=== PATIENT | female | born 1970 | race Caucasian/White ===

== ENCOUNTER 2024-05-25 10:56 | Outpatient (CLI) | payer OTHER, SELFPAY ==
--- NOTE | ~2024-05-25 | MM_ITS ---
EXAMINATION: MM screening janes BI w justin HISTORY: Screening TECHNIQUE: Craniocaudal and mediolateral oblique 3-D tomosynthesis images were obtained and synthetic 2-D images were generated. CAD analysis was submitted and interpreted. COMPARISON: No prior mammogram is available for comparison at this institution. BREAST PARENCHYMAL COMPOSITION: There are scattered areas of fibroglandular density. FINDINGS: Punctate calcifications are detected bilaterally, morphologically benign in appearance. Unremarkable parenchymal pattern without suspicious microcalcifications, architectural distortion, di screte masses or significant asymmetry. IMPRESSION: 1. No mammographic/tomographic evidence of malignancy. BI-RADS Category 0: Incomplete: Needs comparison with prior mammograms. Reviewed, dictated and finalized at location A.
--- OUTSIDE RECORDS SUMMARY | 2024-05-25 12:13 | XMS_ITS | Clinical Summary ---
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 2020. Nasopharyngeal 05/04/2024 1: 55 AM COMMERCIAL ACCOUNT MANAGER 05/04/2024 2:00 AM COMMERCIAL ACCOUNT MANAGER Cydney RIGGINS CH - 05/04/2024 3:21 AM COMMERCIAL ACCOUNT MANAGER Is the Patient experiencing symptoms consistent with COVID?->Yes Surveillance testing for transplant patient?->No James Lopez NP LAB MICROBIOLOGY - GENERAL ORDERABLES Final Result [facility] [address] Department of Laboratories [place], [place] [id number] * POCT lipid panel (04/21/2024 12:12 PM COMMERCIAL ACCOUNT MANAGER) Cholesterol, POC 202 mg/dL HDL, POC 81 mg/dL Triglycerides, POC 149 mg/dL LDL Cholesterol POC 91 mg/dL Chol/HDL Ratio, POC 2.5 Non-HDL Cholesterol, POC 121 mg/dL Cholesterol Total, POC 202 mg/dL Capillary blood 04/21/2024 1 2:12 PM COMMERCIAL ACCOUNT MANAGER us Ashwin Haddad MD POINT OF CARE TEST O RDERABLES Final Result * XR Chest 1 Vw Portable (if patient condition/safety warrant portable) (04/16/2024 9:34 PM COMMERCIAL ACCOUNT MANAGER) Anatomical Region Laterality Modality Body, Chest N/A Computed Radiogr aphy 04/17/2024 8:11 AM COMMERCIAL ACCOUNT MANAGER Impressions 04/17/2024 8:11 AM COMMERCIAL ACCOUNT MANAGER NO ACUTE PULMONARY CHANGE. Electronically signed by: Steven Caro M.D. Narrative 04/17/2024 8:11 AM COMMERCIAL ACCOUNT MANAGER EXAMINATION: XR CHEST 1 VIEW HISTORY: Chest pain ORDER DATE: 04/16/2024 9:20 PM FINDINGS: The lungs are clear of infiltrate. The cardiac and mediastinal outlines are unremarkable. There are no significant pleural effusions . No significant abnormalities are noted in the spine or remainder of the bony thorax. Procedure Note Steven Caro MD - 04/17/2024 EXAMINATION: XR CHEST 1 VIEW HISTORY: Chest pain ORDER DATE: 04/16/2024 9:20 PM FINDINGS: The lungs are clear of infiltrate. The cardiac and mediastinal outlines are unremarkable. There are no significant pleural effusions . No significant abnormalities are noted in the spine or remainder of the bony thorax. IMPRESSION: NO ACUTE PULMONARY CHANGE. Electronically signed by: Steven Caro M.D. Yemi Pryor MD IMG XR PROCEDURES Final Re sult * Troponin T high-sensitivity series (baseline, 2hr, 4hr, 6hr) (04/16/2024 9:16 PM COMMERCIAL ACCOUNT MANAGER) Trop T hs 6 <=14 ng/L Comment: Interpretive Data For further hscTnT resources including the diagnostic algorithm and an aid in interpretation, copy and paste this link: https://nrl.testcatalog.org/show/hsTrop Current Interpretive Data last revised 2020. Blood 04/16/2024 9:16 PM COMMERCIAL ACCOUNT MANAGER 04/16/2024 9:24 PM COMMERCIAL ACCOUNT MANAGER Yemi Pryor MD LAB BLOOD ORDERABLES Final Result Performing Organization Address [facility] Co de Phone Number [facility] VEL[facility] [address] Department [place] [address] * eGFR (04/16/2024 9:16 PM COMMERCIAL ACCOUNT MANAGER) Pathologist [facility] eGFR >90 >=60 mL/min/1. 73 m2 Comment: Interpretive Data Reference Interval Normal >/= 90 mL/min/1.73m2 Mildly decreased* 60 - 89 mL/min/1.73m2 Mildly to moderately decreased 45 - 59 mL/min/1.73m2 Moderately to severely decreased 30 - 44 mL/min/1.73m2 Severely decreased 15 - 29 mL/min/1.73m2 Kidney Failure < 15 mL/min/1.73m2 *Relative to young adult level Estimated glomerular filtration rate is determined by the 2020 CKD-EPI equation recommended by the National Kidney Foundation (A Unifying Approach to GFR Estimation: Recommendations of the NKF-ASK Task Force on Reassessing the Inclusion of Race in Diagnosing Kidney Disease, JASN 2020). The CKD-EPI equation should not be used for patients with unstable renal function and has not been validated in children and those over 70. Current interpretive data was last reviewed 2020. Blood 04/16/2024 9:16 PM COMMERCIAL ACCOUNT MANAGER 04/16/2024 9:24 PM COMMERCIAL ACCOUNT MANAGER Yemi Pryor MD LAB BLOOD ORDERABLES Final Result Performing Organization Address City/[facility]/ZIP Co de Phone Number [facility] [address] Department [place] [address] * Differential, auto (04/16/2024 9:16 PM COMMERCIAL ACCOUNT MANAGER) Pathologist [facility] Neutrophil abs 3.4 1.5 - 6.5 K/cumm Imm gran abs 0.0 0.0 - 0.1 K/cumm [facility] Lymphocyte abs 1.6 0.8 - 3.3 K/cumm [facility] Monocyte abs 0.6 0.2 - 0.8 K/cumm [facility] Eosinophil abs 0.1 0.0 - 0.5 K/cumm [facility] Basophil abs 0.0 0.0 - 0.1 K/cumm [facility] Neutrophil pct 59.4 % [facility] Comment: Interpretive Data Percent cell count reference ranges are not reported, since discordance with absolute values may lead to misinterpretation of CBC data. Current Interpretive Data was last revised on 2017. Imm gran pct 0.2 % [facility] Comment: Interpretive Data Percent cell count reference ranges are not reported, since discordance with absolute values may lead to misinterpretation of CBC data. Current Interpretive Data was last revised on 2017. Lymphocyte pct 27.9 % [facility] Comment: Interpretive Data Percent cell count reference ranges are not reported, since discordance with absolute values may lead to misinterpretation of CBC data. Current Interpretive Data was last revised on 2017. Monocyte pct 9.5 % [facility] Comment: Interpretive Data Percent cell count reference ranges are not reported, since discordance with absolute values may lead to misinterpretation of CBC data. Current Interpretive Data was last revised on 2017. Eosinophil pct 2.3 % [facility] Comment: Interpretive Data Percent cell count reference ranges are not reported, since discordance with absolute values may lead to misinterpretation of CBC data. Current Interpretive Data was last revised on 2017. Basophil pct 0.7 % [facility] Comment: Interpretive Data Percent cell count reference ranges are not reported, since discordance with absolute values may lead to misinterpretation of CBC data. Current Interpretive Data was last revised on 2017. Blood 04/16/2024 9:16 PM COMMERCIAL ACCOUNT MANAGER 04/16/2024 9:24 PM COMMERCIAL ACCOUNT MANAGER us Yemi Pryor MD LAB BLOOD ORDERABLES Final Result [facility] [address] Department [place] [address] * Pro B-type natriuretic peptide (04/16/2024 9:16 PM COMMERCIAL ACCOUNT MANAGER) NT-proBNP 201 <=300 pg/mL Comment: Interpretive Comments: A. Dyspnea in Acute Care Setting All Ages: < 300 pg/ml, acute heart failure unlikely. < 50 yrs: 300 - 450 pg/ml, further investigation warranted. > 450 pg/ml, acute heart failure likely. 50 - 74 yrs: 300 - 900 pg/ml, further investigation warranted. > 900 pg/ml, acute heart failure likely . > or = 75 yrs: 450 - 1800 pg/ml, further investigation warranted. > 1800 pg/ml, acute heart failure likely. B. Non-acute Setting < 75 yrs < 125 pg/ml, rules out heart failure. > or = 125 pg/ml, further investigation warranted. > or = 75 yrs < 450 pg/ml, rules out heart failure. > or = 450 pg/ml, further investigation warranted. - Knowledge of each individual patient's NT-proBNP range may be more useful than using similar cut-points for every patient. Please note that marked elevations in NT-proBNP levels may be observed in state other than Left Ventricular Congestive Failure, including: acute coronary syndromes, right heart strain/failure (including pulmonary embolism and cor pulmonale), critical illness, renal failure, as well as advanced age. - References: 1. Alma Rosa JL et.al. Eur Heart J. 2006:27:330-337. 2. Art RW, Shreyas AM. J. AM Valerie Cardiol: Cardiovasc Imag. 2009;2: 216- 225. Interpretive Data Last Revised Date: 2017. Blood 04/16/2024 9:16 PM COMMERCIAL ACCOUNT MANAGER 04/16/2024 9:24 PM COMMERCIAL ACCOUNT MANAGER us Yemi Pryor MD LAB BLOOD ORDERABLES Final Result [facility] [address] Department [place] [address] * (ABNORMAL) CBC with auto differential (04/16/2024 9:16 PM COMMERCIAL ACCOUNT MANAGER) [facility] WBC 5.8 3.8 - 9.9 K/cumm Hgb 13.8 11.9 - 15.5 g/dL [facility] Hct 42.5 35.6 - 45.5 % [facility] Plt 202 150 - 400 K/cumm [facility] MPV 10.6 9.1 - 12.3 fL [facility] RBC 5.05 3.90 - 5.20 M/cumm [facility] MCV 84.2 81.3 - 96.4 fL [facility] MCH 27.3 27.1 - 33.3 pg [facility] MCHC 32.5 32.3 - 35.7 g/dL [facility] RDW CV 16.3(H) 11.1 - 14.9 % [facility] CH RDW SD 50.4(H) 35.7 - 48.1 fL [facility] NRBC abs 0.00 0.00 - 0.01 K/cumm [facility] Blood Venous blood specimen / Unknown 04/16/2024 9:16 PM COMMERCIAL ACCOUNT MANAGER 04/16/2024 9:24 PM COMMERCIAL ACCOUNT MANAGER Yemi Pryor MD LAB BLOOD ORDERABLES Final Result [facility] [address] Department [place] [address] * (ABNORMAL) Comprehensive metabolic panel (04/16/2024 9:16 PM COMMERCIAL ACCOUNT MANAGER) Sodium 139 135 - 145 mmol/L Potassium, pl 4.3 3.3 - 4.9 mmol/L [facility] Chloride 101 97 - 110 mmol/L [facility] CO2 27 22 - 32 mmol/L [facility] Anion gap 11 2 - 15 mmol/L [facility] BUN 9 6 - 25 mg/dL [facility] Creatinine 0.56(L) 0.60 - 1.10 mg/dL [facility] Glucose 119 70 - 199 mg/dL [facility] Comment: Interpretive Data Fasting glucose >/= 126 mg/dl is diagnostic for diabetes. Fasting is defined as no caloric intake for at least 8 hours. Fasting glucose between 100 mg/dl to 125 mg/dl is diagnostic of prediabetes. In a patient with classic symptoms of hyperglycemia or hyperglycemic crisis, a random glucose >/= 200 mg/dl is diagnostic for diabetes. In the absence of unequivocal hyperglycemia, results should be confirmed by repeat testing. The classification and Diagnosis of Diabetes Diabetes Care 2021; 46: S19-S40. Current interpretive data was last revised 2022. Calcium 9.6 8.5 - 10.3 mg/dL [facility] Bilirubin, total 0.7 0.1 - 1.2 mg/dL [facility] Protein, pl 7.3 6.5 - 8.5 g/dL [facility] Albumin 4.3 3.5 - 5.0 g/dL [facility] Alk phos 214(H) 40 - 130 Units/L [facility] ALT 81(H) 7 - 45 Units/L [facility] AST 53(H) 10 - 45 Units/L [facility] Blood 04/16/2024 9:16 PM COMMERCIAL ACCOUNT MANAGER 04/16/2024 9:24 PM COMMERCIAL ACCOUNT MANAGER us Yemi Pryor MD LAB BLOOD ORDERABLES Final Result Performing Organization Address City/[facility] Co de Phone Number [facility] [address] Department [place] [address] * ECG 12 lead (04/16/2024 9:12 PM COMMERCIAL ACCOUNT MANAGER) 04/16/2024 9:12 PM COMMERCIAL ACCOUNT MANAGER Narrative [facility] - 04/17/2024 6:31 AM COMMERCIAL ACCOUNT MANAGER Vent Rate: 74 bpm RR Interval: 806 msec SD Interval: 174 msec QRS Duration: 98 msec QT Interval: 386 msec QTC Interval: 413 msec P-R-T [place]: 61 - -9 - 81 degrees IMPRESSION: SINUS RHYTHM POSSIBLE LEFT ATRIAL ENLARGEMENT [-0.1mV P-WAVE IN V1/V2] NONSPECIFIC T-WAVE ABNORMALITY BORDERLINE ECG Electronically Signed By: Dr. Korey Avalos us Yemi Pryor MD ECG ORDERABLES Final Resu lt Performing Organization Address [facility]/ZIP Co de Phone Number [facility] * COLONOSCOPY (04/17/2021 2:01 PM COMMERCIAL ACCOUNT MANAGER) Anatomical Region Laterality Modality Other Narrative Procedure Note Klever Alexandre MD - 04/17/2021 2:01 PM CST [facility] Endoscopy Lab Patient Name: Marina Coronado Procedure Date: 04/17/2021 2:01 PM Date of : 1970 Admit Type: Inpatient Age: 51 Gender: Female Note Status: Finalized Attending MD: Klever Alexandre M.D. Procedure Date: 04/17/2021 Procedure: Colonoscopy Indications: Iron deficiency anemia Providers: Klever Alexandre M.D., SRINIVAS Clarke (Anesthesia Staff), Christi Avila RN Referring MD: Pcp Clinic Medicines: Monitored Anesthesia Care Complications: No immediate complications. Estimated Blood Loss: Estimated blood loss: none. Procedure: Pre-Anesthesia Assessment: - Prior to the procedure, a History and Physicalwas performed, and patient medications and allergieswere reviewed. The patient is competent. The risks and benefits of the procedure and the sedation optionsand risks were discussed with the patient. Allquestions were answered and informed consent was obtained. Patient identification and proposed procedure were verified by the physician, the nurse and the sales and events coordinator in the procedure room. Mental Status Examination: alert and oriented. AirwayExamination: normal oropharyngeal airway and neck mobility. Respiratory Examination: clear to auscultation. CV Examination: normal. Prophylactic Antibiotics: The patient does not require prophylactic antibiotics. Prior Anticoagulants: The patient has taken no previous anticoagulant or antiplatelet agents. ASA Grade Assessment: IV - A patient with severesystemic disease that is a constant threat to life. After reviewing the risks and benefits, the patient was deemed in satisfactory condition to undergo the procedure. The anesthesia plan was to use monitored anesthesia care (MAC). Immediately prior to administration of medications, the patient was re-assessed for adequacy to receive sedatives. The heart rate, respiratory rate, oxygen saturations, blood pressure, adequacy of pulmonary ventilation,and response to care were monitored throughout the procedure. The physical status of the patient was re-assessed after the procedure. - The risks and benefits of the procedure and the sedation options and risks were discussed with the patient. All questions were answered and informed consent was obtained. After I obtained informed consent, the scope was passed under direct vision. Throughout theprocedure, the patient's blood pressure, pulse, and oxygen saturations were monitored continuously. The scopewas passed under direct vision. The Colonoscope was introduced through the anus and advanced to the the cecum, identified by appendiceal orifice andileocecal valve. The colonoscopy was performed without difficulty. The patient tolerated the procedurewell. The quality of the bowel preparation was adequate.The bowel preparation used was polyethylene glycol(PEG) and bisacodyl tablets via split dose instruction. Findings: Multiple small-mouthed diverticula were found in the entire colon. The exam was otherwise without abnormality on direct and retroflexion views. Impression: - Diverticulosis in the entire examined colon. - The examination was otherwise normal on directand retroflexion views. - No specimens collected. Recommendation: - High fiber diet. - To visualize the small bowel, perform videocapsule endoscopy at appointment to be scheduled. as outpatient.(EGD placed) - Repeat colonoscopy in 10 years for screening purposes. Procedure Code(s): --- Professional --- 16868, Colonoscopy, flexible; diagnostic, including collection of specimen(s) by brushing or washing,when performed (separate procedure) Diagnosis Code(s): --- Professional --- D50.9, Iron deficiency anemia, unspecified K57.30, Diverticulosis of large intestine without perforation or abscess without bleeding CPT copyright 2019 [employer]. All rights reserved. The codes documented in this report are preliminary and upon tree feller operator reviewmay be revised to meet current compliance requirements. Electronically signed by Klever Alexandre M.D. Klever Alexandre M.D. 04/17/2021 2:49:34 PM Number of Addenda: 0 Note Initiated On: 04/17/2021 2:01 PM Klever Alexandre MD ENDOSCOPY PROCEDURES Fi nal Result * Hemoglobin A1c (04/15/2021 4:51 AM COMMERCIAL ACCOUNT MANAGER) Hgb A1C 5.5 4.0 - 5.6 % [facility] Estimated Average Glucose 111 mg/dL [facility] Comment: The ADA recommends reporting an estimated Average Glucose (eAG) with all Hemoglobin A1c results using the equation derived from a study of 507 normal and diabetic adults. Minority populations were underrepresented and children were not included. (Diabetes Care 31:8024-4385, 2008). The eAG is not equivalent to a fasting glucose. Blood 04/15/2021 4:51 AM COMMERCIAL ACCOUNT MANAGER 04/15/2021 5:26 AM COMMERCIAL ACCOUNT MANAGER Lida Maddox MD LAB BLOOD ORDERABLE S Final Result [facility] [address] Department [place] [address] * Hepatitis panel, acute (04/13/2021 4:54 PM COMMERCIAL ACCOUNT MANAGER) Pathologist [facility] Hep A IgM Nonreactive Nonreactive [facility] Comment: Interpretive Data: If Hep A IgM Ab is reported as Equivocal, a new sample should be drawn in two weeks for testing. Current interpretive data was last revised on 19. Hep B core IgM Nonreactive Nonreactive [facility] Comment: Interpretive Data If HepB Core IgM Ab is reported as Equivocal, a new sample should be drawn in two weeks for testing. Current interpretive data was last revised on 19. Hep C Ab Nonreactive Nonreactive [facility] Comment: Interpretive Data Nonreactive: Antibodies to HCV not detected. Does NOT exclude the possibility of recent exposure to HCV. Equivocal: Equivocal for HCV antibodies. Supplemental molecular testing will be automatically performed to determine infection status in accordance with current CDC screening recommendations. Reactive: Positive for HCV antibodies. This may represent current or past HCV infection. Supplemental molecular testing will be automatically performed to determine current infection status in accordance with current CDC screening recommendations. Interpretive data was last revised on 2019. HepBsAg Nonreactive Nonreactive [facility] Blood 04/13/2021 4:54 PM COMMERCIAL ACCOUNT MANAGER 04/13/2021 5:12 PM COMMERCIAL ACCOUNT MANAGER Klever Alexandre MD LAB MICROBIOLOGY - [facility] ORDERABLES Final Result [address] Department [place] [address] from Last 3 Months or Most Recently Relevant to Health Maintenance Insurance [facility] Advance Directives For more information, please contact: [phone] * Full Code (Latest Code Status on File) Date Activated Date Inactivated Comments 03/18/2022 9:43 AM 03/18/2022 4:02 PM * Full Code Date Activated Date Inactivated Comments 05/05/2021 12:40 AM 05/08/2021 9:52 PM * Full Code Date Activated Date Inactivated Comments 04/22/2021 9:10 AM 04/22/2021 10:53 PM * Full Code Date Activated Date Inactivated Comments 04/17/2021 1:57 PM 04/22/2021 9:10 AM * Full Code Date Activated Date Inactivated Comments 04/13/2021 9:39 AM 04/17/2021 1:57 PM Care Teams Mounter Relationship Specialty Start Date End Date Khanh Altamirano MD [address] [facility] [address] PCP - General Family Medicine 11/13/22 [place] [address] [address] [facility] [address] [place] [address] Consulting Physician Gastroenterology 04/20/21 [place] [address] [facility] [address], [place] [address] Consulting Physician Internal Medicine 04/20/21 [place] [address] [facility] [address] [place] [address] Consulting Physician Gastroenterology 05/08/21
--- OUTSIDE RECORDS SUMMARY | 2024-05-25 12:13 | XMS_ITS | Data Portability ---
Author Organization [facility] [place] Address [address] [place] [address] Care Team Providers [employer] Police Officer Name Role Phone ANABELLASONNYMARYROWAN Primary Care Provider Assessment Encounter Date Assessment Date Assessment LastModified by Organization Details LastModified Time 03/16/2024 03/16/2024 Annual gynecological exam performed. Patient will come back in a year unless there are new symptoms. [email or web address] Not available 03/16/2024 12:12:26 05/15/2024 05/15/2024 Annual gynecological exam performed. Patient will come back in a year unless there are new symptoms. [email or web address] Not available 05/15/2024 12:39:50 Plan of Treatment Reminders Order Date Submit Date Provider Last Modified By Organization Details Last Modified Time Details Appointments IOP ENDOMETRI AL BIOPSY 2024 10:45A M MAYE Crook Not available Not available Not available Lab pap, IG + HR HPV - HPV regardles s but if HPV is positive need subtyping 16,18/45A dd STI testing to PAP GC/CT/Tri ch 2024 025 [facility] (Lab), [address] [facility], [place], [address], 05/18/2024 19:16:19 Referral None recorded. Procedures None recorded. Surgeries None recorded. Imaging US, pelvis 2024 025 [email or web address] [place], [place], [address], 05/18/2024 20:59:59 US, transvagi nal 2024 025 [email or web address] [place], [address], [address], [place], [address], 05/18/2024 20:59:59 US, pelvis, complete 2024 025 [email or web address] [place], [place], [address], 05/24/2024 04:19:19 MAMMO, screening , digital, bilateral 2024 025 [email or web address] [facility], [address], [place], [address], 05/23/2024 15:30:38 Medication Orders None recorded. Patient TargetsNo targets recorded. Patient InstructionsNo instructions recorded. Reason for Referral None Reported. Results Created Date Observation Date Name Description Value Unit Range Abnormal Flag Note LastModifiedBy Organization Detail LastModifiedTime 03/02/1903/02/2024 [facility] SWAB [facility], CARLEE bacterial vaginosis (bv), tma Negati ve negati ve Not Available [facility] (Lab) [address] [facility], [place], [address], 03/04/2024 14:05:23 03/02/19 25 03/02/2024 [facility]LEE harper species, tma Negati ve negati ve Not Available [facility] (Lab) [address] , [place], [address], 03/04/2024 14:05:23 03/02/19 25 03/02/2024 [facility], CARLEE harper glabrata, tma Negati ve negati ve Not Available [facility] (Lab) [address], [place], [address], 03/04/2024 14:05:23 03/02/19 25 03/02/2024 [facility] SWAB [facility], CARLEE trichomonas vaginalis, tma Positi ve negati ve abnormal Not Available [facility] (Lab) [address] [facility], [place], [address], 03/04/2024 14:05:23 03/02/19 25 03/02/2024 [facility] CARLEE chlamydia trachomatis, PCR Negati ve negati ve Not Available [facility] (Lab) [address] [facility], [place], [address], 03/04/2024 14:05:23 03/02/19 25 03/02/2024 [facility] SWAB PL[facility], CARLEE neisseria gonorrhoeae, PCR Negati ve negati ve Bacte rial vagin osis detec ts the follo wing bacte delma assoc iated with bacte rial vagin osis (BV): Lacto bacil marcel (L. gasse ri, L. crisp atus and L. jense isabel), Gardn erell a vagin seng, and Atopo bium vagin ae. A singl e quali tativ e resul t is repor alice base on instr ument softw are to deter mine BV posit guanako or negat guanako statu s. The Arianna da speci es group tests for C. albic ans, C. tropi calis , C. parap liliya is, C. dubli niens is. Testi ng is perfo rmed using the Trans cript ion Media alice Ampli ficat ion metho d. Tests for Arianna da glabr ray, Trich omona s vagin seng, Chlam ydia trach omati s, and Neiss eria gonor rhoea e are also inclu ded in this panel . Not Available [facility] (Lab) [address] [facility], [place], [address], 03/04/2024 14:05:23 05/19/19 25 05/18/2024 US, janina s No observ ation record ed. [email or web address] [place] [address], [place], [address], 05/18/2024 13:57:44 05/19/19 25 05/18/2024 US, trans vagin al No observ ation record ed. [email or web address] [place] [address], [place], [address], 05/18/2024 13:57:59 05/19/19 25 05/18/2024 US, pelvi s No observ ation record ed. [email or web address] [facility] [address], [place], [address], 05/24/2024 18:44:27 Result Notes None recorded. Procedures Surgical History Date Name Laterality Status Provider Name and Address Organization Details Recorded Time 022 Date of Last Colonoscopy completed [facility] 03/02/2024 12:22:39 994 ligation of fallopian tube completed [facility] 03/02/2024 12:24:36 994 section completed [facility] 03/02/2024 12:28:17 992 section completed [facility] 03/02/2024 12:28:13 990 section completed [facility] 03/02/2024 12:28:06 Gastric bypass for obesity completed [facility] 03/02/2024 12:04:48 Cholecystectomy completed [facility] 03/02/2024 12:25:02 Removal of tonsils completed MAYE Crook [address], [place], [address], [facility] 03/02/2024 12:36:04 Imaging Results Imaging Date Name Status LastModified by Organization Details LastModified Time 05/18/2024 US, pelvis completed [email or web address] [place] [address], [place], [address], 05/18/2024 13:57:44 05/18/2024 US, transvaginal completed [email or web address] [facility] [address], [place], [address], 05/18/2024 13:57:59 05/18/2024 US, pelvis completed [email or web address] [address] [address], [place], [address], 05/24/2024 18:44:27 Procedure Notes None recorded. Medical Equipment None Reported. Allergies Allergen ID Allergen Name Allergen Category Reaction Reaction Severity Criticality Documentation Date Start Date Code Code System Note Provider Name and Address Organization Details Recorded Time 01674 cyclobenz aprine hydrochlo ride medicatio n Not available Not available Not available 03/02/2024 92449 RxNorm Natalie Garber [facility] 12:19:55 Medications Name Sig Start Date Stop Date Status Note LastModified by Organization Details LastModified Time losartan 50 mg tablet active Not Available Not Available No t Available carvedilol 12.5 mg tablet active Not Available Not Available Not Available trazodone 50 mg tablet active Not Available Not Available Not Available sertraline 100 mg tablet active Not Available Not Available Not Available metronidazo le 500 mg tablet Take 1 tablet every 12 hours by oral route for 7 days. active Not Available Not Available No t Available aspirin 81 mg tablet,dayan yed release TAKE 1 TABLET BY MOUTH DAILY active Not Available Not Available No t Available spironolact one 25 mg tablet active Not Available Not Available Not Available furosemide 20 mg tablet active Not Available Not Available Not Available prazosin 2 mg capsule active Not Available Not Available N ot Available ezetimibe 10 mg tablet active Not Available Not Available Not Available bupropion HCl XL 150 mg 24 hr tablet, extended release TAKE 1 TABLET BY MOUTH EVERY MORNING active Not Available Not Available No t Available dicyclomine active Not Available Not A vailable Not Available BinaxNOW COVID-19 Ag Self Test kit TEST DIRECTED TODAY active Not Available Not Available No t Available Paxlovid 300 mg (150 mg x 2)-100 mg tablets in a dose pack TK 2 NIRMATREL VIR TS AND 1 RITONAVIR T TOGETHER PO TWICE DAILY X 5 DAYS 05/15 completed Not Available Not Available Not Available Vitals Date Recorded Body height Body mass index (BMI) Body weight Systolic blood pressure Diastolic blood pressure Provider Name and Address Organization Details Last Updated DateTime 03/02/2024 152.4 cm 31.6 kg/m2 28657.25 g 157 mm[Hg] 104 mm[Hg] [facility] 12:19:33 Date Recorded Body height Body mass index (BMI) Body weight Systolic blood pressure Diastolic blood pressure Provider Name and Address Organization Details Last Updated DateTime 03/16/2024 152.4 cm 31.4 kg/m2 05925.37 g 131 mm[Hg] 81 mm[Hg] [facility] 12:12:57 Date Recorded Body height Body mass index (BMI) Body weight Systolic blood pressure Diastolic blood pressure Provider Name and Address Organization Details Last Updated DateTime 05/15/2024 152.4 cm 32 kg/m2 34139.71 g 122 mm[Hg] 79 mm[Hg] [facility] 12:40:27 Social History Question Answer Notes LastModified by Organizat ion Details LastModified Time Tobacco Smoking Status [facility] 03/16/2024 12:13:54 Are You Blind Or Do You Have Difficulty Seeing? No Information n ot available 03/16/2024 In The 14 Days Before Symptom Onset, Have You Had Close Contact With A Laboratory-confirm ed COVID-19 While That Case Was Ill? No [email or web address] Information n ot available 03/16/2024 In The 14 Days Before Symptom Onset, Have You Had Close Contact With A Person Who Is Under Investigation For COVID-19 While That Person Was Ill? No [email or web address] Information not available 03/16/2024 Have You Been To An Area Known To Be High Risk For COVID-19? No [email or web address] Information not available 03/16/2024 Are You Currently Employed? No [email or web address] Information not available 03/16/2024 Are You Deaf Or Do You Have Serious Difficulty Hearing? No [email or web address] Information not available 03/16/2024 Are There Any Guns Present In Your Home? No [email or web address] Information not available 03/16/2024 Are You Sexually Active? No [email or web address] Information not available 03/16/2024 Do You Have Smoke And Carbon Monoxide Detectors In Your Home? Yes [email or web address] Information not available 03/16/2024 Do You Use Any Illicit Or Recreational Drugs? No Information not available 03/16/2024 Do You Use Sunscreen Routinely? No [email or web address] Information not available 03/16/2024 Has Tobacco Cessation Counseling Been Provided? No [email or web address] Information not available 03/16/2024 Do You Or Have You Ever Used Any Other Forms Of Tobacco Or Nicotine? No Information not available 03/16/2024 Sex: Unknown Functional Status Question Answer Note LastModified by PlanStan ion Details LastModified Time Do you have difficulty walking or climbing stairs? No Information not available 03/16/2024 Are you able to walk? YESWOREST [email or web address] Information not available 03/16/2024 Are you able to care for yourself? Yes [email or web address] Information not available 03/16/2024 Do you have difficulty dressing or bathing? No [email or web address] Information not available 03/16/2024 Mental Status None recorded. Family History Relationship Description Onset Age of this Age Resolved Age Notes LastModified by Organization Details LastModified Time Father Heart disease [email or web address] Not available 2024 12:06:57 Father Hypercholest erolemia [email or web address] Not available 2024 12:07:17 Father Hypertensive disorder [email or web address] Not available 2024 12:07:33 Mother Hypercholest erolemia Not available 2024 12:07:17 Mother Hypertensive disorder Not available 2024 12:07:33 Mother Disorder of thyroid gland [email or web address] Not available 2024 12:07:50 Medical History Condition Response Allergies (Food, seasonal, environmental ) N Other Y Breast Cancer N Drug/Latex Allergies/Reactions N Blood Transfusion N Lung Disease N Dermatologic Disorders N Defects or Inherited Disease N Breast Problem N Gestational Diabetes N Hematologic disorders N Anesthesia Complications N History of STI N Deep Vein Thrombosis N Polycystic ovary syndrome N Anxiety Disorder Y Autoimmune disease N Arthritis N Infertility N Polyps N Acid Reflux (GERD) N History of abnormal pap N Cancer N Stroke N Varicosities N Neurologic/Epilepsy N Endometriosis N High Cholesterol Y Headaches N Fibromyalgia N Kidney Disease N Heart Problems Y Kidney or Bladder Problems N Thyroid Problems N GI Problems N Eating Disorder N Anemia N Art (IVF or FET) N Psychiatric Illness Y Ovarian Cancer N Diabetes N Pulmonary (TB, Asthma) N Hepatitis/Liver Disease N No Past Medical History N Eczema N Urinary Tract Infection N Abuse/Domestic Violence N Asthma N Trauma/Violence N Depression/ depression N Heart Disease Y Pre-Eclampsia N Hypertension Y Osteoporosis N Thrombophilias N Gynecological History Statement/Question Response Abnormal Pap N Date of Last Mammogram Date of LMP On BCP's at Conception? N STIs/STDs N HPV Vaccine N Age at First Child 19 Date of Last Colonoscopy 03/01/2021 Sexually Active? Y Menses Monthly N Date of Last Pap Smear Sexual Problems? Y Obstetrics History GPAL:G 3 P 3 0 0 3 Type Value Full Term 3 Living 3 Total 3 Past Encounters Encounter ID Performer Location Encounter Start Date Encounter Closed Date Diagnosis/Indication Diagnosis SNOMED-CT Code Diagnosis ICD10 Code Diagnosis Note [id number] MAYE Crook [place] [address] [address] 03/02/2024 11:53:56 03/02/2024 14:17:23 Vulval irritation 531633449 N90.89 Health hx obtained and reviewed todayVulva r care guidelines discussed, d/c use of vaginal wipes/prod ucts - avoid irritantsv eg based moisturize r routine discussedv aginitis/S TI panel sentwill await results and treat as indicatedm ay consider vaginal estrogen pending results - will discuss further at f/uschedul ed to RTC for WWE / f/uBP precaution s reviewed, encouraged PCP f/u Time spent in visit is a total of 30 mins with at least 50% of visit consisting of counseling and review of plan of care. [id number] MAYE Crook [place] [address] [address] 03/16/2024 12:03:52 03/16/2024 13:24:14 Infection by Trichomonas [id number] A59.9 Discussed (+) trichomona s result with pt and need to complete treatmentm edication has been sent to her pharmacypa rtner needs testing and treatment (PCP or health dept)no IC until both have been treated and its been 10 days since last dose of medication for allRTC for WWE/KALA in 6-8 weekspt to notify PCP of medication regimen d/t medical hxquestion s answered, [facility] handout given on trichomona s Time spent in visit is a total of 20 mins with at least 50% of visit consisting of counseling and review of plan of care. [id number] MAYE Crook [place] [address],[place] [address] 05/15/2024 12:33:30 05/15/2024 15:36:33 Gynecologic examination 50304632 Z01.419 WWEPap - done todaySTI screen - gc/ct/tric h testing added to papMammogr am - order givenColon cancer screening - UTDDexa - n/aRoutine labs - PCPRTC in 1 yr or sooner if needed Do monthly self breast exams.It is advised to get annual flu shot in the fall and she could obtain at local pharmacy. If you haven't received the Tdap vaccine in the last 10 years you should obtain one as well.Have mammogram yearly, bone density every 2-3 years and stay up to date on colon cancer screening. Engage in regular exercise. Avoid tobacco and illicit drugs. This lifestyle behavior pattern will lead to less health conditions and longer life span. If BMI greater than 25 dietary consult advised.Qu estions have been answered. Venereal d isease screening 198715101 Z11.3 Screening for malignant neoplasm of breast 767549513 Z12.39 Postmenopa usal bleeding 01100165 N95.0 discussed possible PMB and recommende d updated pelvic u/swill update pt with results when available and discuss next steps/doc mmendation s [id number] Livier Morris [place] [address] [address] 05/18/2024 10:59:04 05/18/2024 13:31:25 Postmenopausal bleeding 04334296 N95.0 Health Concerns Section Related Observation LastModified by Organization Detai ls LastModified Time None Recorded Concern Status LastModified by Organization Details LastModified Time None Recorded Advance Directives Directive None Recorded Payers Encounter Date Sequence Insurance Name Policy Number Policy Vela Covered Member ID Vela Member ID Guarantor Name 03/02/2024 1 [facility] ON OR AFTER 08/29/20 (MEDICAID REPLACEMENT - HMO) Marina Coronado [id number] Marina Coronado 03/16/2024 1 [facility] ON OR AFTER 08/29/20 (MEDICAID REPLACEMENT - HMO) Marina Coronado [id number] Marina Coronado 05/15/2024 1 [facility] ON OR AFTER 08/29/20 (MEDICAID REPLACEMENT - HMO) Marina Coronado [id number] Marina Coronado 05/18/2024 1 [facility] ON OR AFTER 08/29/20 (MEDICAID REPLACEMENT - HMO) Marina Coronado [id number] Marina Coronado Notes Date Note Type Note Provider Name and Address Organization Details Recorded Time 03/02/2024 text/html 53yopresents for vaginal/vulvar itching/irritation/p ain with ICvaginal itching on and off, vulvar burning/irritation, IC is painful/insertionuse s vaginal wipes and monistat gelSA with steady male partnermonthly periods last pap 5+ yrs agomammogram last 5+ yrs ago neg pelvic painneg AUBneg n/v/fneg d/c, odorsneg flu-like symptoms MAYE Crook [address], [place], [address], [place] [facility] 03/02/2024 13:51:48 03/16/2024 text/html 53yopresents for WWEwas seen in office 03/02/2024 for vaginal symptoms(+) trichomonas on vaginitis panel done 03/02/2024our office has been attempting to contact pt by phone/portal/letter to discuss results, have been unable to reach her MAYE Crook [address], [place], [address], [facility] 03/16/2024 13:23:11 05/15/2024 text/html Annual GYNReport ed bypatient.Menstrual cycle:Irregular cycle intervals Urinary symptoms:No hematuria; No incontinence Vulva:No genital lesion Vagina:Normal vaginal discharge Breast:No breast pain; No breast lump; No nipple discharge Sexual complaints:No sexual complaints; No pain during intercourse; Normal libido Menopausal Symptoms:No menopausal symptoms; Normal vaginal lubrication Psychological symptoms:No depression; No anxiety; No PMDD Preventive measures:Encourage self breast examination; Encourage regular exercise; Encourage no tobacco use; Encourage regular mammograms starting age 41Notes:54yo [email or web address] is unsure when her last pap waswent about 12 months without a period, then had light vaginal bleeding for 3-4 days 2 weeks ago.(+) trichomonas 03/02/2024 - completed treatment and symptoms resolved, partner was also treated MAYE Crook [address], [place], [address], [facility] 05/15/2024 15:33:10 OBGyn Episode Ob Episode Information Episode Created Date Number of Fetuses Patient Bloodtype Patient rh Status Prepregnancy Weight lbs Domestic Partner Domestic Partner Phone Father Name Commercial Interior Designer Status 03/02/19 25 1 CLOSED Fetus Data First Name Last Name Admitted to NICU Weight (g) Sex Living Outcome Pediatric Complications Fetus ID Race Codes Race Delivery Type F Full Term [id number] Repeat Artemio Calculation Initial Artemio Date Initial Exam Date Initial Exam Provider Initial Ultrasound Date Last Menstrual Period Date Ultra Sound Weeks Gestation 0 Eighteen To Twenty Week Artemio Update Ultra Sound Date Fundal Height At Umbil Quickening Date Ultra Sound Latest Weeks Gestation Final Artemio Confirmed By Final Artemio Confirmed Date Final Artemio Date Ultra Sound Latest Days Gestation 0 0 Menstrual History Last Menstrual Date Menses Monthly On Bcp Conception Prior Menses Frequency Hcg Plus Date Menarche Onset Age Delivery Information Delivery Date Delivery Type Labor Anesthesia Weeks Gestation Incision Type Labor Labor Length Hrs Delivered By Post Complications Tubal Sterilization Discharge Date Comments 2 Discharge Information Feeding Method Contraceptive Method Maternal HG B and HCT Levels Ob Episode Information Episode Created Date Number of Fetuses Patient Bloodtype Patient rh Status Prepregnancy Weight lbs Domestic Partner Domestic Partner Phone Father Name Commercial Interior Designer Status 03/02/19 25 1 CLOSED Fetus Data First Name Last Name Admitted to NICU Weight (g) Sex Living Outcome Pediatric Complications Fetus ID Race Codes Race Delivery Type F Full Term [id number] Primary Artemio Calculation Initial Artemio Date Initial Exam Date Initial Exam Provider Initial Ultrasound Date Last Menstrual Period Date Ultra Sound Weeks Gestation 0 Eighteen To Twenty Week Artemio Update Ultra Sound Date Fundal Height At Umbil Quickening Date Ultra Sound Latest Weeks Gestation Final Artemio Confirmed By Final Artemio Confirmed Date Final Artemio Date Ultra Sound Latest Days Gestation 0 0 Menstrual History Last Menstrual Date Menses Monthly On Bcp Conception Prior Menses Frequency Hcg Plus Date Menarche Onset Age Delivery Information Delivery Date Delivery Type Labor Anesthesia Weeks Gestation Incision Type Labor Labor Length Hrs Delivered By Post Complications Tubal Sterilization Discharge Date Comments 0 Discharge Information Feeding Method Contraceptive Method Maternal HG B and HCT Levels Ob Episode Information Episode Created Date Number of Fetuses Patient Bloodtype Patient rh Status Prepregnancy Weight lbs Domestic Partner Domestic Partner Phone Father Name Commercial Interior Designer Status 03/02/19 25 1 CLOSED Fetus Data First Name Last Name Admitted to NICU Weight (g) Sex Living Outcome Pediatric Complications Fetus ID Race Codes Race Delivery Type M Full Term [id number] Repeat Artemio Calculation Initial Artemio Date Initial Exam Date Initial Exam Provider Initial Ultrasound Date Last Menstrual Period Date Ultra Sound Weeks Gestation 0 Eighteen To Twenty Week Artemio Update Ultra Sound Date Fundal Height At Umbil Quickening Date Ultra Sound Latest Weeks Gestation Final Artemio Confirmed By Final Artemio Confirmed Date Final Artemio Date Ultra Sound Latest Days Gestation 0 0 Menstrual History Last Menstrual Date Menses Monthly On Bcp Conception Prior Menses Frequency Hcg Plus Date Menarche Onset Age Delivery Information Delivery Date Delivery Type Labor Anesthesia Weeks Gestation Incision Type Labor Labor Length Hrs Delivered By Post Complications Tubal Sterilization Discharge Date Comments 4 Discharge Information Feeding Method Contraceptive Method Maternal HG B and HCT Levels
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
--- OUTSIDE RECORDS SUMMARY | 2024-05-25 12:13 | XMS_ITS | Continuity of Care Document ---
Author Organization [facility] Address [address] [place] [address] [place] [address] Phone Care Team Providers Care Broach Setter Name Role Phone Tito Coronado MD Unavailable Unavailable Allergies, Adverse Reactions, Alerts Substance Reaction Status Criticality CYCLOBENZAPRINE HCL Active No Infor mation Medications Medication Instructions Dosage Effective Dates (start - stop) Status Comments buspirone 7.5 mg tablet take 1 tablet (7.5MG) by oral route 2 times every day 7.5 MG - Active avoid driving or operate machines Prozac 20 mg capsule take 1 Capsule (20MG) by oral route every day in the morning 20 MG - Active Topamax 50 mg tablet take 1 tablet (50MG) by oral route 2 times every day 50 MG - Active avoid driving or operate machines Procedures Procedure Date OFFICE/OUTPATIENT VISIT, [facility] Advance Directives Directive Yes / No Effective Date File Name No Information Encounters Encounter Description Practice Location Reason(s) For Visit Diagnoses Date Provider Providers Copied on Encounter OFFICE/OUTPAT IENT VISIT, [facility], [address] [place], [place], [id number], tel:[phone] [facility] anxiety (chief complaint) Dietary surveillance and counselingMajor depressive affective disorder, single episode, mild degreeGeneralized anxiety disorderBipolar disorder, unspecified 0-201 [address]. [address] [place], [id number] , [place]. tel:[phone] Family History Family Member Type Diagnosis Age At Onset Father Problem (finding) Coronary artery disease Mother Problem (finding) Diabetes mellitus Payers Payer name Insurance type Covered alliance party ID Authoriza tion(s) No Information Social History Type Description Quantity Date Captured Comments Alcohol Use Details Caffeine Use Details Unknown Tobacco Use Status No Information Smoking Status Never smoker Non-Smoking Tobacco Use Details : No Details Available : No Details Available Sex Female Vital Signs Date / Time: Height Weight BMI Pulse Rate Blood Pressure Temperature Respiratory Rate Body Surface Area Head Circumference BMI percentile Pulse Ox Inhaled Ox 10:35 AM 60.00 in 223.00 lbs 43.5 5 kg/m eter (2) 91 /min 141/99 mm[Hg] 96.4 F 18 /min Chief Complaint And Reason For Visit From encounter dated '06/28/2013 10:15'. anxiety (chief complaint) Plan Of Treatment Date Type Action Status No Information History Of Present Illness Encounter Date Complaint History Of Prese nt Illness No Information Instructions Date Instruction Additional Infor florinaion Dietary counseling Related to Di etary surveillance counseling Decrease caloric intake Related to Dietary surveillance counseling Assessments Type Assessment Date No Information Mental Status Date Cognitive Assessment Orientation - [place] ed to time, place, person, situation.
--- OUTSIDE RECORDS SUMMARY | 2024-05-25 12:13 | XMS_ITS | CONTINUITY OF CARE DOCUMENT ---
Author Name ermias monson Address Unknown Organization [facility] Address [address] [address] [place] [address] Phone [phone] Care Team Providers Care Rodeo Rider Name Role Phone Chon Arnold MD Unavailable [phone] BRANDIE BAKER, ROWAN Unavailable BRANDIE BAKER, ROWAN Unavailable PROBLEMS Condition Status Date Provider Notes OBESITY active Carolyn Sanz HYPERLIPIDEMIA active Carolyn Sanz HTN HEART DISEASE W/O CHF- ECHO EF 555/08 ECHO EF 55 LVH active ? Christ Mccord RN Abnormal stress test active Mickey chaves CHEST PAIN-04/08 CATH NORM active ? Agapito garza MD SLEEP APNEA-10/06 NO OBSTRUCTION. active Yelitza Wall MD LOW BACK PAIN, ACUTE active Chon Arnold MD Family History of Sudden Cardiac : active ? Chon Arnold MD Preoperative cardiovascular examination active Chon Arnold MD Leg pain active Chon Arnold MD ENCOUNTERS Date Type Provider Location Encounter Diag nosis - In-person encounter Office Visit Chon Arnold MD [facility] Abnormal stress test - In-person encounter Office Visit Chon Arnold MD [facility] - In-person encounter Office Visit Chon Arnold MD [facility] Family History of Sudden Cardiac :Preoperative cardiovascular examinationLeg pain - In-person encounter Office Visit Chon Arnold MD [facility] - In-person encounter Office Visit Chon Arnold MD [facility] LOW BACK PAIN, ACUTE - In-person encounter Office Visit Chon Arnold MD [facility] - In-person encounter Office Visit Emeka Wall MD [facility] SLEEP APNEA-10/06 NO OBSTRUCTION. - In-person encounter Office Visit Emeka Wall MD [facility] - In-person encounter Office Visit Agapito Copeland MD [facility] HTN HEART DISEASE W/O CHF-09/06 ECHO EF 555/08 ECHO EF 55 LVHAbnormal stress testCHEST PAIN-04/08 CATH NORMSLEEP APNEA-10/06 NO OBSTRUCTION. - In-person encounter Office Visit Emeka Wall MD [facility] HTN HEART DISEASE W/O CHF-09/06 ECHO EF 555/08 ECHO EF 55 LVH VITAL SIGNS Date Observation Value Provider blood pressure, diastolic, left arm 82 mm [Hg] Nina Xavier blood pressure, systolic, left arm 118 mm [Hg] Nina Park blood pressure, diastolic, right arm 80 m m[Hg] Nina Xavier blood pressure, systolic, right arm 118 m m[Hg] Nina Park blood pressure, diastolic 82 mm[Hg] Ar prem Xavier blood pressure, systolic 118 mm[Hg] Daria ml Park pulse rate 88 /min Nina Park oxygen saturation, oximetry 99 % Nina Park respiratory rate E&M 16 /min Nina Park Body Mass Index (Ratio) 35.58 kg/m2 Rosa mahan Xavier weight E&M 182.2 [lb_av] Nina Park blood pressure, diastolic, left arm 96 mm [Hg] Nina Hutson blood pressure, systolic, left arm 161 mm [Hg] Nina Hutson blood pressure, diastolic, right arm 94 m m[Hg] Nina Hutson blood pressure, systolic, right arm 155 m m[Hg] Nina Hutson Body Mass Index (Ratio) 45.70 kg/m2 [facility] negrito Hutson blood pressure, diastolic 96 mm[Hg] Ar prem Hutson blood pressure, systolic 161 mm[Hg] Daria bull Hutson pulse rate 88 /min Nina Hutson oxygen saturation, oximetry 98 % Nina Hutson respiratory rate E&M 15 /min Nina Hutson weight E&M 234 [lb_av] Nina Hutson blood pressure, diastolic 108 mm[Hg] Ar prem Hutson blood pressure, systolic 182 mm[Hg] Daria bull Hutson pulse rate 102 /min Nina Hutson oxygen saturation, oximetry 98 % Nina Hutson Body Mass Index (Ratio) 44.91 kg/m2 [facility] respiratory rate E&M 16 /min Nina Hutson weight E&M 230 [lb_av] Nina Hutson blood pressure, diastolic, left arm 105 m m[Hg] Christ Mccord RN blood pressure, systolic, left arm 156 mm [Hg] Christ Mccord RN blood pressure, diastolic, right arm 124 mm[Hg] Christ Mccord RN blood pressure, systolic, right arm 190 m m[Hg] Christ Mccord RN blood pressure, diastolic 105 mm[Hg] Harris Mccord RN blood pressure, systolic 156 mm[Hg] Christ Mccord RN pulse rate 82 /min Christ Mccord RN oxygen saturation, oximetry 98 % Christ Mccord RN respiratory rate E&M 16 /min Christ barry RN Body Mass Index (Ratio) 41.55 kg/m2 Christ Mccord RN weight E&M 212 [lb_av] Christ Mccord RN height E&M 60 [in_i] Christ Mccord RN orthostatic blood pr essure, sitting, left arm, diastolic 86 [facility] orthostatic blood pr essure, sitting, left arm, systolic 128 [facility] orthostatic blood pr essure, sitting, right arm, diastolic 86 [facility] orthostatic blood pr essure, sitting, right arm, systolic 122 [facility] pulse rate 79 /min [facility] oxygen saturation, oximetry 99 % [facility] height in centimeters E&M 0 cm [facility] blood pressure, diastolic, left arm 118 m m[Hg] [facility] blood pressure, systolic, left arm 177 mm [Hg] [facility] blood pressure, diastolic, right arm 117 mm[Hg] [facility] blood pressure, systolic, right arm 170 m m[Hg] [facility] blood pressure, diastolic 117 mm[Hg] [facility] blood pressure, systolic 170 mm[Hg] [facility] pulse rate 89 /min [facility] oxygen saturation, oximetry 98 % [facility] respiratory rate E&M 16 /min [facility] weight E&M 222 [lb_av] [facility] blood pressure, diastolic, left arm 113 m m[Hg] [facility] blood pressure, systolic, left arm 178 mm [Hg] [facility] blood pressure, diastolic, right arm 98 m m[Hg] [facility] blood pressure, systolic, right arm 174 m m[Hg] [facility] blood pressure, diastolic 98 mm[Hg] Gonzalo Douglas blood pressure, systolic 174 mm[Hg] [facility] oxygen saturation, oximetry 97 % [facility] pulse rate 91 /min Arcelia York respiratory rate E&M 17 /min Arcelia kelly blood pressure, diastolic 89 mm[Hg] Harris Mccord RN blood pressure, systolic 144 mm[Hg] Christ Mccord RN pulse rate 103 /min Christ Mccord RN oxygen saturation, oximetry 98 % Christ Mccord RN respiratory rate E&M 18 /min Christ barry RN weight E&M 246 [lb_av] Christ Mccord RN blood pressure, diastolic 97 mm[Hg] Harris Mccord RN blood pressure, systolic 156 mm[Hg] Christ Mccord RN pulse rate 100 /min Christ Mccord RN oxygen saturation, oximetry 98 % Christ Mccord RN respiratory rate E&M 16 /min Christ barry RN weight E&M 252 [lb_av] Christ Mccord RN blood pressure, diastolic, left arm 124 m m[Hg] Christ Mccord RN blood pressure, systolic, left arm 191 mm [Hg] Christ Mccord RN blood pressure, diastolic, right arm 115 mm[Hg] Christ Mccord RN blood pressure, systolic, right arm 185 m m[Hg] Christ Mccord RN pulse rate 101 /min Christ Mccord RN oxygen saturation, oximetry 99 % Christ Mccord RN respiratory rate E&M 18 /min Christ barry RN weight E&M 257 [lb_av] Christ Mccord RN blood pressure, diastolic, right arm 87 m m[Hg] Carolyn Sanz blood pressure, systolic, right arm 143 m m[Hg] Carolyn Sanz blood pressure, diastolic 100 mm[Hg] Wang Sanz blood pressure, systolic 150 mm[Hg] [facility] pulse rate 81 /min Carolyn Sanz oxygen saturation, oximetry 98 % Carolyn Sanz respiratory rate E&M 18 /min Carolyn baldwin weight E&M 263 [lb_av] Carolyn Umu ALLERGIES Allergy Name Onset Date Reaction Criticality Status LISINOPRIL cough cough High Criticality active FLEXERIL High Criticality active RESULTS Date Observation Value Provider Reference Range Interpretation Location 1 alanine aminotransferase (SGPT), serum 40 1/L [facility] 6-40 Normal 1 aspartate aminotransferase (SGOT), serum 34 1/L [facility] 10-30 High 1 alkaline phosphatase, serum 120 1/L [facility] 33-115 High 1 bilirubin, serum, total 1.9 mg/dL [facility] 0.2-1.2 High 1 albumin/globulin ratio, serum 1.4 (calc) [facility] 1.0-2.1 Normal 1 globulins, serum, total 3.2 G/DL (CALC) [facility] 2.2-3.9 Normal 1 albumin, serum 4.5 g/dL [facility] 3.6-5.1 Normal 1 protein, total, serum 7.7 g/dL [facility] 6.2-8.3 Normal 1 calcium, serum 9.0 mg/dL [facility] 8.6-10.2 Normal 1 carbon dioxide, venous blood 24 mmol/L [facility] 21-33 Normal 1 chloride, serum 104 mmol/L [facility] 98-110 Normal 1 potassium, serum 4.0 mmol/L [facility] 3.5-5.3 Normal 1 sodium, serum 138 mmol/L [facility] 135-146 Normal 1 urea nitrogen/creatinine ratio, serum 10 (calc) [facility] 6-22 Normal 1 Estimated Glomerular Filtration Rate (calc) >60 mL/min/1. 73m2 [facility] > OR = 60 Normal 1 creatinine, serum 0.59 mg/dL [facility] 0.58-1.06 Normal 1 urea nitrogen, blood 6 mg/dL [facility] 7-25 Low 1 blood glucose, random 331 mg/dL [facility] 65-99 High 1 cholesterol/HDL ratio, serum, percent 4.0 (calc) [facility] < OR = 5.0 Normal 1 LDL cholesterol, serum 124 MG/DL (CALC) [facility] <130 Normal 1 triglyceride, serum, fasting 186 mg/dL [facility] <150 High 1 HDL cholesterol, serum 53 mg/dL [facility] > OR = 46 Normal 1 cholesterol, serum 214 mg/dL [facility] 125-200 High 6 hemoglobin A1C, blood, as % of total hemoglobin 9.2 % OF TOTAL HGB [facility] See Note: High 6 thyroid stimulating hormone, serum 2.28 u[IU]/mL [facility] Normal 6 basophils as percent of blood leukocytes 0.6 % [facility] Normal 6 eosinophils as percent of blood leukocytes 1.5 % [facility] Normal 6 monocyte count, blood 6.4 % [facility] Normal 6 lymphocyte count, blood 33.9 % [facility] Normal 6 neutrophils as percent of blood leukocytes 57.6 % [facility] Normal 6 basophils, absolute, manual 51 cells/mcL [facility] 0-200 Normal 6 eosinophils, absolute, manual 128 cells/mcL [facility] 15-500 Normal 6 monocytes, absolute, manual 544 cells/mcL [facility] 200-950 Normal 6 lymphocytes, absolute 2882 CELLS/UL [facility] 850-3900 Normal 6 Absolute Neutrophil count 4896 cells/mcL [facility] [id number] Normal 6 platelet count 213 THOUSAND/ UL [facility] 140-400 Normal 6 red blood cell distribution width 14.2 % [facility] 11.0-15.0 Normal 6 mean corpuscular hemoglobin concentration, RBC 33.7 G/DL [facility] 32.0-36.0 Normal 6 mean corpuscular hemoglobin, RBC 30.2 pg [facility] 27.0-33.0 Normal mean corpuscular volume, RBC 89.7 fL [facility] 80.0-100.0 Normal hematocrit, blood 44.3 % [facility] 35.0-45.0 Normal hemoglobin electrophoresis, blood 14.9 [facility] 11.7-15.5 Normal erythrocyte (RBC) count 4.95 MILLION/U L [facility] 3.80-5.10 Normal leukocyte (white blood cells) count, blood 8.5 THOUSAND/ UL [facility] 3.8-10.8 Normal alanine aminotransferase (SGPT), serum 43 1/L [facility] 6-40 High aspartate aminotransferase (SGOT), serum 42 1/L [facility] 10-30 High alkaline phosphatase, serum 111 1/L [facility] 33-115 Normal bilirubin, serum, total 1.8 mg/dL [facility] 0.2-1.2 High albumin/globulin ratio, serum 1.2 (calc) [facility] 1.0-2.1 Normal globulins, serum, total 3.3 G/DL (CALC) [facility] 2.2-3.9 Normal albumin, serum 4.1 g/dL [facility] 3.6-5.1 Normal protein, total, serum 7.4 g/dL [facility] 6.2-8.3 Normal calcium, serum 9.4 mg/dL [facility] 8.6-10.2 Normal carbon dioxide, venous blood 21 mmol/L [facility] 21-33 Normal chloride, serum 101 mmol/L [facility] 98-110 Normal potassium, serum 4.8 mmol/L [facility] 3.5-5.3 Normal sodium, serum 136 mmol/L [facility] 135-146 Normal urea nitrogen/creatinine ratio, serum 20 (calc) [facility] 6-22 Normal 6 Estimated Glomerular Filtration Rate (calc) >60 mL/min/1. 73m2 [facility] > OR = 60 Normal 6 creatinine, serum 0.51 mg/dL [facility] 0.58-1.06 Low 6 urea nitrogen, blood 10 mg/dL [facility] 7-25 Normal 6 blood glucose, random 223 mg/dL [facility] 65-99 High 6 cholesterol/HDL ratio, serum, percent 6.0 (calc) [facility] < OR = 5.0 High 6 LDL cholesterol, serum 200 MG/DL (CALC) [facility] <130 High 6 HDL cholesterol, serum 50 mg/dL [facility] > OR = 46 Normal 6 cholesterol, serum 300 mg/dL [facility] 125-200 High triglyceride, serum, fasting 252 mg/dL [facility] <150 High HISTORY OF MEDICATION USE Medication Status Instructions Dates Provider Indications Com ments GLIPIZIDE 5 MG ORAL TABLET completed TWICE DAILY - Nina Xavier TOPAMAX 50 MG ORAL TABLET active TWICE DAILY Nina Hutson GABAPENTIN 300 MG ORAL CAPSULE active THREE TIMES DAILY Nina Hutson RANITIDINE HCL 150 MG ORAL TABLET completed TWICE DAILY - Nina Park FLUOXETINE HCL 20 MG ORAL CAPSULE active ONCE DAILY Nina Hutson BUSPIRONE HCL 7.5 MG ORAL TABLET active TWICE DAILY Nina Hutson LIPITOR 20 MG ORAL TABLET completed ONE TAB. DAILY - Nina Park PRILOSEC 20 MG ORAL CAPSULE DELAYED RELEASE active TWICE DAILY Nina Hutson NORTRIPTYLINE HCL 25 MG ORAL CAPSULE active TWICE DAILY Nina Hutson JANUVIA 100 MG ORAL TABLET completed ONCE DAILY - Nina Park PRAVACHOL 20 MG ORAL TABLET completed ONE TAB. DAILY - Nina Hutson NORVASC 10 MG ORAL TABLET active ONE TAB. DAILY Chon M Vardi MD COZAAR 100 MG ORAL TABLET active ONE TAB. DAILY Chon Arnold MD METFORMIN HCL 1000 MG ORAL TABLET completed twice daily - Nina Park ZOLOFT 100 MG ORAL TABLET completed one tab daily - Nina Hutson BACTRIM DS 800-160 MG ORAL TABLET completed One tab twice daily - Nina Rodriguezann COREG 25 MG ORAL TABLET active ONE TAB. TWICE DAILY Chon Arnold MD CARISOPRODOL 350 MG ORAL TABLET completed 1 tablet three times daily - Filiberto Owen ZOLOFT 100 MG ORAL TABLET completed once daily - Filiberto Owen METFORMIN HCL 500 MG ORAL TABLET completed once daily - Filiberto Owen LOVAZA 1 GM ORAL CAPSULE completed 2 tabs by mouth daily - Arcelia Douglas CRESTOR 10 MG ORAL TABLET completed 1 tablet by mouth daily - Filiberto Owen ZYRTEC 10 MG TABS completed ONE TAB. DAILY - Arcelia Douglas AMLODIPINE BESYLATE 10 MG ORAL TABLET completed ONE TAB. DAILY - Arcelia Douglas LASIX 40 MG ORAL TABLET completed 1 daily - Nina Park SEROQUEL 50 MG ORAL TABLET completed daily - Emeka Wall MD FAMOTIDINE TABS completed 20 mg daily - Arcelia Douglas CLONAZEPAM TABLET completed 0.5 mg daily - Christ Mccord RN HYDROCHLOROTHIAZIDE CAPSULE completed 25 mg daily - Emeka Wall MD AMLODIPINE BESYLATE TABLET completed 10 mg daily - Christ Mccord RN SERTRALINE HCL 50 MG ORAL TABLET completed daily - Emeka Wall MD GLIPIZIDE ER 5 MG ORAL TABLET EXTENDED RELEASE 24 HOUR completed daily - Filiberto Owen ZETIA 10 MG ORAL TABLET completed daily - Arcelia Douglas CATAPRES 0.3 MG ORAL TABLET completed TID - Christ Mccord RN DIOVAN 320 MG ORAL TABLET completed one tab daily - Nina Hutson CARVEDILOL 25 MG ORAL TABLET completed twice daily - Glenncastro Owen ASPIRIN EC LO-DOSE TABLET DELAYED RELEASE completed daily - Arcelia Douglas ABILIFY 10 MG ORAL TABLET completed twice daily - Arcelia Douglas TRIGLIDE 160 MG ORAL TABLET completed daily - Arcelia Douglas CARISOPRODOL 350 MG ORAL TABLET completed BID - Emeka Wall MD METFORMIN HCL 500 MG ORAL TABLET completed BID - Christ Mccord RN SOCIAL HISTORY Date Observation Value Provider social history E&M Marital Statu s: L kimberley with family/friends E thnicity: Smoking History: Reyna gayle has never smoked. Mickey Dhillon social history reviewed E&M revi ewed - no changes required Chon Arnold MD alcohol use, average drinks per day none Nina Xavier alcohol use no Nina Xavier drug use no Nina Park passive cigarette sm louann exposure no Nina Park smoking status Never smoker Nina Park social history reviewed E&M revi ewed - no changes required Chon Arnold MD alcohol use, average drinks per day none Nina Haresh drug use no Nina Haresh passive cigarette sm louann exposure no Nina Hutson smoking status Never smoker Nina Eugenia alejandra social history reviewed E&M revi ewed - no changes required Cyndee Lopez alcohol use, average drinks per day none Nina Haresh drug use no Nina Hutson passive cigarette sm louann exposure no Nina Haresh smoking status Never smoker Nina alejandra drug use no Christ Mccord RN passive cigarette sm louann exposure no Christ Mccord RN social history reviewed E&M reviewed Christ Mccord RN smoking status never smoker Christ Mccord RN social history reviewed E&M reviewed Christ Mccord RN social history reviewed E&M reviewed Christ Mccord RN social history reviewed E&M reviewed Christ Mccord RN social history reviewed E&M reviewed Christ Mccord RN drug use none Agapito Copeland MD social history E&M Marital Statu s: L kimberley with family/friends E thnicity: Christ Mccord RN social history reviewed E&M reviewed Christ Mccord RN social history reviewed E&M reviewed Emeka Wall MD alcohol use, average drinks per day none [facility] smoking status Non-smoker [facility] FUNCTIONAL STATUS Date Observation Value Provider HRA, CV Assess/Plan, Angina (inactive) Management Plan continue current therapy [facility] MENTAL STATUS Date Observation Value Provider assessment of judgme nt and insight E&M Alert and oriented to time, place and person. Mood and affect are normal. Christ Mccord RN assessment of judgme nt and insight E&M Alert and oriented to time, place and person. Mood and affect are normal. Christ Mccord RN assessment of judgme nt and insight E&M Alert and oriented to time, place and person. Mood and affect are normal. Christ Mccord RN assessment of judgme nt and insight E&M Alert and oriented to time, place and person. Mood and affect are normal. Christ Mccord RN assessment of judgme nt and insight E&M Alert and oriented to time, place and person. Mood and affect are normal. Christ Mccord RN assessment of judgme nt and insight E&M Alert and oriented to time, place and person. Mood and affect are normal. Christ Mccord RN assessment of judgme nt and insight E&M Alert and oriented to time, place and person. Mood and affect are normal. Emeka Wall MD FAMILY HISTORY Family Member Condition Father Family History of Hughes dden Cardiac : Father Family History Coron krunal Heart Disease male < 55: INSURANCE PROVIDERS Payer name Policy type / Coverage type Elvin red bing [employer] Medicaid [id number] TREATMENT PLAN Date Name Performer Cardiology:No chest pain or SOB. Mickey Alejo Cardiology:BP today: 118/82 P rior BP: 161/96 (08/06/2014) The following medications were removed from the medication list: Lasix 40 Mg Tabs (Furosemide) ..... 1 daily Her updated medication list for this problem includes: Coreg 25 Mg Tabs (Carvedilol) ..... One tab. twice daily Cozaar 100 Mg Tabs (Losartan potassium) ..... One tab. daily Norvasc 10 Mg Tabs (Amlodipine besylate) ..... One tab. daily Mickey Dhillon Cardiology:There's n o cardiac contraindication for the patient's upcoming cholecystectomy. Mickey Dhillon Cardiology:Underwent sucessful gastric sleeve and lost 50 pounds. Mickey Dhillon Cardiology:No chest pain or SOB. Mickey Dhillon anxiety: H er updated medication list for this problem includes: Aspirin Ec Lo-dose Tbec (Aspirin tbec) ..... Daily Carvedilol 25 Mg Tabs (Carvedilol) ..... Twice daily Diovan 320 Mg Tabs (Valsartan) Lasix 20 Mg Tabs (Furosemide) ..... 20 mg daily Amlodipine Besylate 10 Mg Tabs (Amlodipine besylate) ..... One tab. daily BP today: 144/89 P rior BP: 156/97 (09/06/2008) Labs Reviewed: C reat: 0.51 (09/03/2008) C hol: 300 (09/03/2008) HDL: 50 (09/03/2008) LDL: 200 MG/DL (CALC) (09/03/2008) T (09/03/2008) w ill see if the crestor will make any difference or not. Emeka Wall MD anxiety Emeka Wall MD anxiety: H er updated medication list for this problem includes: Aspirin Ec Lo-dose Tbec (Aspirin tbec) ..... Daily Carvedilol 25 Mg Tabs (Carvedilol) ..... Twice daily Amlodipine Besylate 10 Mg Tabs (Amlodipine besylate) ..... One tab. daily BP today: 144/89 Prior BP: 156/97 (09/06/2008) N uclear Stress Findings: EF - 55%. N o EKG changes diagnostic for ischemia. No evidence of myocardial ischemia by perfusion scan. (07/06/2006) C ardiac Cath: Normal coronary arteries. N ormal left ventricular systolic function. N ormal renal arteries. (04/05/2007) C HOL: 300 (09/03/2008) LDL: 200 MG/DL (CALC) (09/03/2008) HDL: 50 (09/03/2008) T (09/03/2008) H CT: 44.3 (09/03/2008) Platelets: 213 THOUSAND/UL (09/03/2008) R BC: 4.95 MILLION/UL (09/03/2008) BUN: 10 (09/03/2008) Creat: 0.51 (09/03/2008) Glucose: 223 (09/03/2008) N a+: 136 (09/03/2008) K+: 4.8 (09/03/2008) Cl: 101 (09/03/2008) TSH: 2.28 (09/03/2008) Echocardiogram: Normal left ventricular systolic function. Normal left ventricular size. There is borderline left ventricular hypertrophy. There is E to A wave reversal consistent with impaired LV relaxation . Normal E/E` 11.6. Left ventricular ejection fraction is estimated a t 55%. [facility] (09/11/2008) Emeka Wall MD anxiety: H er updated medication list for this problem includes: Aspirin Ec Lo-dose Tbec (Aspirin tbec) ..... Daily Carvedilol 25 Mg Tabs (Carvedilol) ..... Twice daily Amlodipine Besylate 10 Mg Tabs (Amlodipine besylate) ..... One tab. daily Emeka Wall MD anxiety Emeka Wall MD : H er updated medication list for this problem includes: Triglide 160 Mg Tabs (Fenofibrate) ..... Daily Zetia 10 Mg Tabs (Ezetimibe) ..... Daily Crestor 10 Mg Tabs (Rosuvastatin calcium) ..... 1 tablet by mouth daily Lovaza 1 Gm Caps (Kmcpk-4-ovgh ethyl esters) ..... 2 tabs by mouth daily BP today: 156/97 Prior BP: 150/100 (09/01/2007) C HOL: 300 (09/03/2008) LDL: 200 MG/DL (CALC) (09/03/2008) HDL: 50 (09/03/2008) T (09/03/2008) w ill need to check a flp in 4 weeks along with ast/alt as she has a hx of liver problems. O rders: C OMPREHENSIVE METABOLIC PANEL W/EGFR (00275) L IPID PANEL (9730) Emeka Wall MD : H er updated medication list for this problem includes: Aspirin Ec Lo-dose Tbec (Aspirin tbec) ..... Daily Carvedilol 25 Mg Tabs (Carvedilol) ..... Twice daily Diovan 320 Mg Tabs (Valsartan) Lasix 20 Mg Tabs (Furosemide) ..... 20 mg daily Amlodipine Besylate 10 Mg Tabs (Amlodipine besylate) ..... One tab. daily BP today: 156/97 P rior BP: 150/100 (09/01/2007) Labs Reviewed: C reat: 0.51 (09/03/2008) C hol: 300 (09/03/2008) HDL: 50 (09/03/2008) LDL: 200 MG/DL (CALC) (09/03/2008) T (09/03/2008) Emeka Wall MD : H er updated medication list for this problem includes: Triglide 160 Mg Tabs (Fenofibrate) ..... Daily Aspirin Ec Lo-dose Tbec (Aspirin tbec) ..... Daily Carvedilol 25 Mg Tabs (Carvedilol) ..... Twice daily Zetia 10 Mg Tabs (Ezetimibe) ..... Daily Amlodipine Besylate 10 Mg Tabs (Amlodipine besylate) ..... One tab. daily Crestor 10 Mg Tabs (Rosuvastatin calcium) ..... 1 tablet by mouth daily Lovaza 1 Gm Caps (Mpntn-1-ihso ethyl esters) ..... 2 tabs by mouth daily BP today: 156/97 Prior BP: 150/100 (09/01/2007) N uclear Stress Findings: EF - 55%. N o EKG changes diagnostic for ischemia. N o evidence of myocardial ischemia by perfusion scan. (07/06/2006) C ardiac Cath: Normal coronary arteries. N ormal left ventricular systolic function. N ormal renal arteries. (04/05/2007) C HOL: 300 (09/03/2008) LDL: 200 MG/DL (CALC) (09/03/2008) HDL: 50 (09/03/2008) T (09/03/2008) H CT: 44.3 (09/03/2008) Platelets: 213 THOUSAND/UL (09/03/2008) R BC: 4.95 MILLION/UL (09/03/2008) BUN: 10 (09/03/2008) Creat: 0.51 (09/03/2008) Glucose: 223 (09/03/2008) N a+: 136 (09/03/2008) K+: 4.8 (09/03/2008) Cl: 101 (09/03/2008) TSH: 2.28 (09/03/2008) Emeka Wall MD : H er updated medication list for this problem includes: Aspirin Ec Lo-dose Tbec (Aspirin tbec) ..... Daily Carvedilol 25 Mg Tabs (Carvedilol) ..... Twice daily Amlodipine Besylate 10 Mg Tabs (Amlodipine besylate) ..... One tab. daily BP today: 156/97 Prior BP: 150/100 (09/01/2007) N uclear Stress Findings: EF - 55%. N o EKG changes diagnostic for ischemia. N o evidence of myocardial ischemia by perfusion scan. (07/06/2006) C ardiac Cath: Normal coronary arteries. N ormal left ventricular systolic function. N ormal renal arteries. (04/05/2007) C HOL: 300 (09/03/2008) LDL: 200 MG/DL (CALC) (09/03/2008) HDL: 50 (09/03/2008) T (09/03/2008) H CT: 44.3 (09/03/2008) Platelets: 213 THOUSAND/UL (09/03/2008) R BC: 4.95 MILLION/UL (09/03/2008) BUN: 10 (09/03/2008) Creat: 0.51 (09/03/2008) Glucose: 223 (09/03/2008) N a+: 136 (09/03/2008) K+: 4.8 (09/03/2008) Cl: 101 (09/03/2008) TSH: 2.28 (09/03/2008) Echocardiogram: EF - 55%. M ild concentric LVH. D iastolic dysfunction. M Ild left atrial enlargement. M Ildy thickneed mitral valve leaflets. T race to mild mitral regurgitation. (07/07/2007) Emeka Wall MD office : H er updated medication list for this problem includes: Triglide 160 Mg Tabs (Fenofibrate) ..... Daily Zetia 10 Mg Tabs (Ezetimibe) ..... Daily Emeka Wall MD office :encouraged to lose weigh t. Emeka Wall MD office :improved. on ly change was that the hctz stopped and started on lasix and psychatrist stopped some meds. Emeka Wall MD Date Name Arterial Duplex Bi-L ower EX STR - Nuclear Complete Echo Kidney Ultrasound Renal Artery Duplex Complete Echo Renal Artery Duplex Complete Echo LIPID PANEL COMPREHENSIVE METABO LIC PANEL W/EGFR LIPID PANEL COMPREHENSIVE METABO LIC PANEL W/EGFR LIPID PANEL COMPREHENSIVE METABO LIC PANEL W/EGFR HEMOGLOBIN A1c TSH, 3RD GENERATION CBC (INCLUDES DIFF/P LT) LIPID PANEL COMPREHENSIVE METABO LIC PANEL W/EGFR HEMOGLOBIN A1c CBC (H/H, RBC, INDIC ES, WBC, PLT) THYROID PANEL WITH T SH, 3RD GENERATION COMPREHENSIVE METABO LIC PANEL W/EGFR LIPID PANEL Sleep Study HISTORY OF PROCEDURES Procedure Date Procedure Name Provider Procedure Notes S tatus EKG Chon Arnold MD completed SNOMED-CT: 059928838 [id number] Current Medications Documented Chon Arnold MD completed EKG Chon Arnold MD completed ePrescribe - Check t his box if eRx is used Chon Arnold MD completed EKG Chon Arnold MD completed EKG Chon Arnold MD completed EKG Chon Arnold MD completed EKG Agapito Copeland MD completed
--- OUTSIDE RECORDS SUMMARY | 2024-05-25 12:13 | XMS_ITS | Clinical Summary ---
Author Organization [facility] Address [address] [place] [address] Care Team Providers Care Rice Milling Supervisor Name Role Phone Unavailable Primary Care Provider Unavailabl e Source Comments [facility],non-owned Affiliates and Associated Physician Practices is amultiple site organization consisting of ambulatory clinics and hospital sitesin [place], [place], [place] and [place]. This disclosure is being madepursuant to the Care Everywhere program and may not contain all information available regarding this patient. Last updated 17.[facility] Social History Tobacco Use Types Packs/Day Years Used Date Smoking Tobacco: Never Assessed Sex and Gender Information Value Date Recorded Sex Assigned at Not on file Gender Identity Not on file Sexual Orientation Not on file Plan of Treatment Health Maintenance Due Date Last Done Comments COLOGUARD (AGES 45-75) - COL ON CA SCREENING [address] COLONOGRAPHY - COLON CA SCREENING 1971 FIT - COLON CA SCREENING 1971 FLEX SIG - COLON CA SCREENING 1971 LIPID TESTING 1971 MAMMOGRAM 1971 PAP SMEAR 1971 HIV SCREENING 1986 HEPATITIS C SCREENING 03/29/1989 DTAP/TDAP/TD VACCINES (1 - Tdap) 1990 HEPATITIS B VACCINE (1 of 3 - 19+ 3-dose series) 1990 PNEUMOCOCCAL VACCINE 50+ (1 of 1 - PCV) 2021 ZOSTER VACCINE (1 of 2) 2021 COVID-19 VACCINE (1 - 2023-2 5 season) 2023 INFLUENZA VACCINE (#1) 2023 04/14/2021 DEPRESSION SCREENING 03/01/2024 COLONOSCOPY - COLON CA SCREENING 04/17/2031 04/17/19 22 Colorectal Cancer Screening 04/17/2031 HIB VACCINE Aged Out No longer eligi ble based on patient's age to complete this topic HPV VACCINE Aged Out No longer eligi ble based on patient's age to complete this topic MENINGOCOCCAL (Group B) VACC INE SHARED DECISION-MAKING Aged Out No longer eligibl e based on patient's age to complete this topic MENINGOCOCCAL GROUPS A/C/Y/W VACCINE Aged Out No longer eligible b ased on patient's age to complete this topic PNEUMOCOCCAL VACCINE Aged Out No long er eligible based on patient's age to complete this topic
== END 2024-05-25 10:57 | disposition home or self-care (01) ==
PROVIDERS: PCP Family Medicine; Visit Provider Nurse Practitioner
DX: Z12.31 Encounter for screening mammogram for malignant neoplasm of breast (principal); R92.8 Other abnormal and inconclusive findings on diagnostic imaging of breast
CPT/HCPCS: 77063; 77067

== ENCOUNTER 2024-07-12 15:07 | Outpatient (CLI) | payer OTHER, SELFPAY ==
--- OUTSIDE RECORDS SUMMARY | 2024-07-12 15:12 | XMS_ITS | Clinical Summary ---
Author Organization [facility] Address [address] [place] [address] Care Team Providers Care Computer Service Technician Name Role Phone Unavailable Primary Care Provider Unavailabl e Source Comments [facility],non-owned Affiliates and Associated Physician Practices is amultiple site organization consisting of ambulatory clinics and hospital sitesin [place], [place], [place] and [place]. This disclosure is being madepursuant to the Care Everywhere program and may not contain all information available regarding this patient. 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 Gender Identity Not on file Sexual Orientation Not on file Plan of Treatment Health Maintenance Due Date Last Done Comments COLOGUARD (AGES 45-75) - COL ON CA SCREENING [address] COLONOGRAPHY - COLON CA SCREENING 1971 FIT - COLON CA SCREENING 1971 FLEX SIG - COLON CA SCREENING 1971 LIPID TESTING 1971 MAMMOGRAM 1971 HIV SCREENING 1986 HEPATITIS C SCREENING 03/29/1989 DTAP/TDAP/TD VACCINES (1 - Tdap) 1990 HEPATITIS B VACCINE (1 of 3 - 19+ 3-dose series) 1990 PNEUMOCOCCAL VACCINE 50+ (1 of 1 - PCV) 2021 ZOSTER VACCINE (1 of 2) 2021 COVID-19 VACCINE ( - 2023-2 5 season) 2023 DEPRESSION SCREENING 03/01/2024 INFLUENZA VACCINE (Season Ended) 2024 04/14/19 COLONOSCOPY - COLON CA SCREENING 04/17/2031 04/17/19 Colorectal Cancer Screening 04/17/2031 HIB VACCINE Aged [...] on patient's age to complete this topic Insurance [facility]
--- OUTSIDE RECORDS SUMMARY | 2024-07-12 15:12 | XMS_ITS | CONTINUITY OF CARE DOCUMENT ---
Author Name ermias monson Address Unknown Organization [facility] Address [address] [place] [address] Phone [phone] Care Team Providers Care Tower Control Operator Name Role Phone Chon Arnold MD Unavailable [phone] BRANDIE BAKER, ROWAN Unavailable BRANIDE BAKER, ROWAN Unavailable PROBLEMS Condition Status Date [...] In-person encounter Office Visit Chon Arnold MD [facility] Abnormal stress test - In-person encounter Office Visit Chon Arnold MD [place] [facility] - In-person encounter Office Visit Chon Arnold MD [facility] Family History of Sudden Cardiac :Preoperative cardiovascular examinationLeg pain - In-person encounter Office Visit Chon Arnold MD [place] [facility] - In-person encounter Office Visit Chon Arnold MD [facility] LOW BACK PAIN, ACUTE - In-person encounter Office Visit Chon Arnold MD [facility] - In-person encounter Office Visit Emeka Wall MD [place] [facility] SLEEP APNEA-10/06 NO OBSTRUCTION. - In-person encounter Office Visit Emeka Wall MD [facility] - In-person encounter Office Visit Agapito Copeland MD [facility] HTN HEART DISEASE W/O CHF-09/06 ECHO EF 555/08 ECHO EF 55 LVHAbnormal stress testCHEST PAIN-04/08 CATH NORMSLEEP APNEA-10/06 NO OBSTRUCTION. - In-person encounter Office Visit Emeka Wall MD [place] [facility] HTN HEART DISEASE W/O CHF-09/06 ECHO [...] Nina [place] blood pressure, diastolic 82 mm[Hg] Ia prem Xavier blood pressure, systolic 118 mm[Hg] [...] Hutson Body Mass Index (Ratio) 45.70 kg/m2 [facility] negrito Hutson blood pressure, diastolic 96 mm[Hg] Ia prem Hutson blood pressure, systolic 161 mm[Hg] Daria bull Hutson pulse rate 88 /min Nina Hutson oxygen saturation, oximetry 98 % Nina Hutson respiratory rate E&M 15 /min Nina Hutson weight E&M 234 [lb_av] Nina Hutson blood pressure, diastolic 108 mm[Hg] Ia prem Hutson blood pressure, systolic 182 mm[Hg] Daria bull Hutson pulse rate 102 /min Nina Hutson oxygen saturation, oximetry 98 % Nina Hutson Body Mass Index (Ratio) 44.91 kg/m2 [facility] respiratory rate E&M 16 /min Nina Hutson weight E&M 230 [lb_av] Nina Hutson blood pressure, diastolic, left arm 105 m m[Hg] Chrits Mccord RN blood pressure, systolic, left arm [...] pr essure, sitting, left arm, diastolic 86 [facility] orthostatic blood pr essure, sitting, left arm, systolic 128 [facility] orthostatic blood pr essure, sitting, right arm, diastolic 86 [facility] orthostatic blood pr essure, sitting, right arm, systolic 122 [facility] pulse rate 79 /min [facility] oxygen saturation, oximetry 99 % [facility] height in centimeters E&M [address] [facility] blood pressure, diastolic, left arm 118 m m[Hg] [facility] blood pressure, systolic, left arm 177 mm [Hg] [facility] blood pressure, diastolic, right arm 117 mm[Hg] [facility] blood pressure, systolic, right arm 170 m m[Hg] [facility] blood pressure, diastolic 117 mm[Hg] [facility] blood pressure, systolic 170 mm[Hg] [facility] [place] [facility] pulse rate 89 /min [facility] oxygen saturation, oximetry 98 % [facility] respiratory rate E&M 16 /min [facility] weight E&M 222 [lb_av] [facility] Clementeran blood pressure, diastolic, left arm 113 m m[Hg] [facility] blood pressure, systolic, left arm 178 mm [Hg] [facility] blood pressure, diastolic, right arm 98 m m[Hg] [facility] blood pressure, systolic, right arm 174 m m[Hg] [facility] blood pressure, diastolic 98 mm[Hg] Gonzalo Douglas blood pressure, systolic 174 mm[Hg] [facility] oxygen saturation, oximetry 97 % [facility] pulse rate 91 /min Arcelia York [...] Sanz oxygen saturation, oximetry 98 % Carolyn aSnz respiratory rate E&M 18 /min Carolyn baldwin [...] 6 Absolute Neutrophil count 4896 cells/mcL [facility] [id number] Normal 6 platelet count 213 THOUSAND/ UL [...] Normal alanine aminotransferase (SGPT), serum 43 1/L [facility] 6[facility]40 High aspartate aminotransferase (SGOT), serum 42 1/L [facility] 10-30 High alkaline phosphatase, serum 111 1/L [facility] 33-115 Normal bilirubin, serum, total 1.8 mg/dL [facility] 0.2-1.2 High albumin/globulin ratio, serum 1.2 (calc) [facility] 1.0-2.1 Normal globulins, serum, total 3.3 G/DL (CALC) [facility] 2.2-3.9 Normal albumin, serum 4.1 g/dL [facility] 3.6-5.1 Normal protein, total, serum 7.4 g/dL [facility] 6.2-8.3 Normal calcium, serum 9.4 mg/dL [facility] 8.6-10.2 Normal carbon dioxide, venous blood 21 mmol/L [facility] 21-33 Normal chloride, serum 101 mmol/L [facility] 98-110 Normal potassium, serum 4.8 mmol/L [facility] 3.5-5.3 Normal sodium, serum 136 mmol/L [facility] 135-146 Normal urea nitrogen/creatinine ratio, serum 20 (calc) [facility] 6-22 Normal 6 Estimated Glomerular Filtration Rate [...] Angina (inactive) Management Plan continue current therapy [facility] [place] [facility] MENTAL STATUS Date Observation Value Provider [...] and person. Mood and affect are normal. Chrits Mccord RN assessment of judgme nt and [...] Policy type / Coverage type Elvin red republican [employer] Medicaid [id number] TREATMENT PLAN Date Name Performer Cardiology:No chest [...] (Amlodipine besylate) ..... One tab. daily Mickey Dhiloln Cardiology:There's n o cardiac contraindication for the [...] ejection fraction is estimated a t 55%. [facility] (09/11/2008) Emeka Wall MD anxiety: H er [...] by mouth daily Lovaza 1 Gm Caps (Nokth-0-evyp ethyl esters) ..... 2 tabs by mouth daily BP today: 156/97 Prior BP: 150/100 (09/01/2007) C HOL: 300 (09/03/2008) LDL: 200 MG/DL (CALC) (09/03/2008) HDL: 50 (09/03/2008) T (09/03/2008) w ill need to check a flp in 4 weeks along with ast/alt as she has a hx of liver problems. O rders: C OMPREHENSIVE METABOLIC PANEL W/EGFR (97613) L IPID PANEL (7600) Emeka Wall MD : H er updated [...] by mouth daily Lovaza 1 Gm Caps (Jkskb-0-upir ethyl esters) ..... 2 tabs by mouth [...] tatus EKG Chon Arnold MD completed SNOMED-CT: [id number] Current Medications Documented Chon Arnold MD completed EKG Chon Arnold MD completed ePrescribe - Check t his box if eRx is used Chon Arnold MD completed EKG Chon Arnold MD completed EKG Chon Arnold MD completed EKG Chon Arnold MD completed EKG Agapito Copeland MD completed
--- OUTSIDE RECORDS SUMMARY | 2024-07-12 15:12 | XMS_ITS | Referral Summary ---
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 Screening-Colonoscopy 04/17/20312021 Hepatitis C Screening Completed 04/13/2021 Pneumococcal vaccine <65 Completed 08/04/2021, 03/01 Medical Devices Implanted Type Area Inside Sales Person Device Identifier Shelf Expiration Date Model / Serial / Lot Medtronic Card Vasc Surgery 2.50 X 26mm Steven Hempstead Rx Coronary Stent [id number] - [id number] Implanted:Qty: 1 on 03/18/2022 by Ashwin Haddad MD at [facility] Medtronic Card Vasc Surgery 07/24/2023 [id number] / / [id number] [employer] Angio-Seal Vip 6fr Closere Device [id number] - [id number] Implanted:Qty: 1 on 03/18/2022 by Ashwin Haddad MD at [facility] 11/28/2022 [id number] / / [id number] Procedures Procedure Name Priority Date/Time Associated Diagnosis Comments STREPTOCOCCUS GROUP A PCR STAT 05/04/2024 1:55 AM MACHINE SAND MIXER RESPIRATORY PATHOGEN PANEL STAT 05/04/2024 1:55 AM MACHINE SAND MIXER POCT LIPID PANEL Routine 04/21/2024 12:1 2 PM MACHINE SAND MIXER Type 2 diabetes mellitus without complication, without long-term current use of insulin (HCC) Vitamin D deficiency XR CHEST 1 VIEW ED 04/16/2024 9:34 PM MACHINE SAND MIXER EGFR STAT 04/16/2024 9:16 PM MACHINE SAND MIXER DIFFERENTIAL AUTO STAT 04/16/2024 9:1 6 PM MACHINE SAND MIXER PRO B-TYPE NATRIURETIC PEPTIDE STAT 04/16/2024 9:16 PM MACHINE SAND MIXER TROPONIN T HIGH-SENSITIVITY SERIES (BASELINE, 2HR, 4HR, 6HR) STAT 04/16/2024 9:16 PM MACHINE SAND MIXER COMPREHENSIVE METABOLIC PANEL STAT 04/16/2024 9:16 PM MACHINE SAND MIXER CBC WITH AUTO DIFFERENTIAL STAT 04/16/2024 9:16 PM MACHINE SAND MIXER ECG 12-LEAD STAT 04/16/2024 9:12 PM MACHINE SAND MIXER COLONOSCOPY 04/17/2021 2:01 PM MACHINE SAND MIXER HEMOGLOBIN A1C Routine 04/15/2021 4:51 AM MACHINE SAND MIXER HEPATITIS PANEL, ACUTE Routine 4:54 PM MACHINE SAND MIXER from Last 3 Months or Most Recently Relevant to Health Maintenance Results * Streptococcus Group A PCR Throat (05/04/2024 1:55 AM MACHINE SAND MIXER) Strep A DNA Not Detected Not Detected Comment: This test is performed using the [employer] Xpert Group A Streptococcal Assay. This is [...] the performing laboratory. Throat 05/04/2024 1:55 AM MACHINE SAND MIXER 05/04/2024 2:00 AM MACHINE SAND MIXER James Lopez NP LAB MICROBIOLOGY - GENERAL ORDERABLES Final Result Performing Organization Address City/State/[facility] Co de Phone Number [facility] [id number] Department [place] [address] CH * (ABNORMAL) Respiratory pathogen panel Nasopharyngeal (05/04/2024 1:55 AM MACHINE SAND MIXER) [facility] Influenza A RNA Not Detected Not Detected Influenza B RNA Not Detected Not Detected [facility] RSV RNA Not Detected Not Detected [facility] COVID-19 RNA Detected(A) Not Detected [facility] Coronavirus 229E RNA Not Detected Not Detected [facility] Coronavirus HKU1 RNA Not Detected Not Detected [facility] Coronavirus NL63 RNA Not Detected Not Detected [facility] Coronavirus OC43 RNA Not Detected Not Detected [facility] Adenovirus DNA Not Detected Not Detected [facility] Metapneumovirus RNA Not Detected Not Detected [facility] Rhinovirus/Enterov irus RNA Not Detected Not Detected [facility] Parainfluenza 1 RNA Not Detected Not Detected [facility] Parainfluenza 2 RNA Not Detected Not Detected [facility] Parainfluenza 3 RNA Not Detected Not Detected [facility] Parainfluenza 4 RNA Not Detected Not Detected [facility] B. pertussis DNA Not Detected Not Detected [facility] B. parapertussis DNA Not Detected Not Detected [facility] C. pneumoniae DNA Not Detected Not Detected [facility] M. pneumoniae DNA Not Detected Not Detected [facility] Comment: Interpretive Data The Plix FilmArray Respiratory Panel (RP2.1) assay is a [...] assay has FDA clearance for testing of COMPUTER OPERATIONS SUPERVISOR swabs. The performance characteristics of this assay have been determined by [facility]. Current interpretive data was last revised on 2020. Nasopharyngeal 05/04/2024 1: 55 AM MACHINE SAND MIXER 05/04/2024 2:00 AM MACHINE SAND MIXER Narrative [facility]ELAZ[facility] - 05/04/2024 3:21 AM MACHINE SAND MIXER Is the Patient experiencing symptoms consistent with COVID?->Yes Surveillance testing for transplant patient?->No James Lopez NP LAB MICROBIOLOGY - GENERAL ORDERABLES Final Result [facility] [address] Department [place] [address] CH * POCT lipid panel (04/21/2024 12:12 PM MACHINE SAND MIXER) Cholesterol, POC 202 mg/dL HDL, POC 81 mg/dL Triglycerides, POC 149 mg/dL LDL Cholesterol POC 91 mg/dL Chol/HDL Ratio, POC 2.5 Non-HDL Cholesterol, POC 121 mg/dL Cholesterol Total, POC 202 mg/dL Capillary blood 04/21/2024 1 2:12 PM MACHINE SAND MIXER Ashwin Haddad MD POINT OF CARE TEST O RDERABLES Final Result * XR Chest 1 Vw Portable (if patient condition/safety warrant portable) (04/16/2024 9:34 PM MACHINE SAND MIXER) Anatomical Region Laterality Modality Body, Chest N/A Computed Radiogr aphy 04/17/2024 8:11 AM MACHINE SAND MIXER Impressions 04/17/2024 8:11 AM MACHINE SAND MIXER NO ACUTE PULMONARY CHANGE. Electronically signed by: Steven Caro M.D. Narrative 04/17/2024 8:11 AM MACHINE SAND MIXER EXAMINATION: XR CHEST 1 VIEW HISTORY: Chest [...] (baseline, 2hr, 4hr, 6hr) (04/16/2024 9:16 PM MACHINE SAND MIXER) Trop T hs 6 <=14 ng/L Comment: Interpretive Data For further hscTnT resources including the diagnostic algorithm and an aid in interpretation, copy and paste this link: https://nrl.testcatalog.org/show/hsTrop Current Interpretive Data last revised 2020. Blood 04/16/2024 9:16 PM MACHINE SAND MIXER 04/16/2024 9:24 PM MACHINE SAND MIXER Yemi Pryor MD LAB BLOOD ORDERABLES Final Result [facility] [address] Department [place] [address] * eGFR (04/16/2024 9:16 PM MACHINE SAND MIXER) eGFR >90 >=60 mL/min/1. 73 m2 Comment: [...] of Race in Diagnosing Kidney Disease, JASN 202). The CKD-EPI equation should not be used for patients with unstable renal function and has not been validated in children and those over 70. Current interpretive data was last reviewed 2020. Blood 04/16/2024 9:16 PM MACHINE SAND MIXER 04/16/2024 9:24 PM MACHINE SAND MIXER us Yemi Pryor MD LAB BLOOD ORDERABLES Final Result [facility] [address] Department [place] [address] * Differential, auto (04/16/2024 9:16 PM MACHINE SAND MIXER) Neutrophil abs 3.4 1.5 - 6.5 K/cumm Imm gran abs 0.0 0.0 - 0.1 K/cumm [facility] Lymphocyte abs 1.6 0.8 - 3.3 K/cumm [facility] Monocyte abs 0.6 0.2 - 0.8 K/cumm [facility] Eosinophil abs 0.1 0.0 - 0.5 K/cumm [facility] Basophil abs 0.0 0.0 - 0.1 K/cumm [facility] Neutrophil pct 59.4 % [facility] Comment: Interpretive Data Percent cell count reference ranges are not reported, since discordance with absolute values may lead to misinterpretation of CBC data. Current Interpretive Data was last revised on 2017. Imm gran pct 0.2 % [facility] Comment: Interpretive Data Percent cell count reference ranges are not reported, since discordance with absolute values may lead to misinterpretation of CBC data. Current Interpretive Data was last revised on 2017. Lymphocyte pct 27.9 % [facility] Comment: Interpretive Data Percent cell count reference ranges are not reported, since discordance with absolute values may lead to misinterpretation of CBC data. Current Interpretive Data was last revised on 2017. Monocyte pct 9.5 % [facility] Comment: Interpretive Data Percent cell count reference ranges are not reported, since discordance with absolute values may lead to misinterpretation of CBC data. Current Interpretive Data was last revised on 2017. Eosinophil pct 2.3 % [facility] Comment: Interpretive Data Percent cell count reference ranges are not reported, since discordance with absolute values may lead to misinterpretation of CBC data. Current Interpretive Data was last revised on 2017. Basophil pct 0.7 % [facility] Comment: Interpretive Data Percent cell count reference ranges are not reported, since discordance with absolute values may lead to misinterpretation of CBC data. Current Interpretive Data was last revised on 2017. Blood 04/16/2024 9:16 PM MACHINE SAND MIXER 04/16/2024 9:24 PM MACHINE SAND MIXER us Yemi Pryor MD LAB BLOOD ORDERABLES Final Result [facility] [address]
--- OUTSIDE RECORDS SUMMARY | 2024-07-12 15:12 | XMS_ITS | Continuity of Care Document ---
Author Organization [facility] Address [address] [place] [address] [place] [address] Phone Care Team Providers Care Flat Grinder Operator Name Role Phone Tito Coronado MD Unavailable Unavailable Allergies, Adverse Reactions, Alerts Substance Reaction Status Criticality CYCLOBENZAPRINE HCL Active No Infor mation Medications Medication Instructions Dosage Effective Dates (start - stop) Status Comments Topamax 50 mg tablet take 1 tablet (50MG) by oral route 2 times every day 50 MG - Active avoid driving or operate machines Prozac 20 mg capsule take 1 Capsule (20MG) by oral route every day in the morning 20 MG - Active buspirone 7.5 mg tablet take 1 tablet (7.5MG) by oral route 2 times every day 7.5 MG - Active avoid driving or operate machines Procedures Procedure Date OFFICE/OUTPATIENT VISIT, [facility] Advance Directives Directive Yes / No Effective Date File Name No Information Encounters Encounter Description Practice Location Reason(s) For Visit Diagnoses Date Provider Providers Copied on Encounter OFFICE/OUTPAT IENT VISIT, [facility], [address] [place], [id number], tel:[phone] [facility] anxiety (chief complaint) Dietary surveillance and counselingMajor depressive affective disorder, single episode, mild degreeGeneralized anxiety disorderBipolar disorder, unspecified 0-201 [address] [place], [place], [id number] , [place]. tel:[phone] Family History Family Member Type Diagnosis Age At Onset Father Problem (finding) Coronary artery disease Mother Problem (finding) Diabetes mellitus Payers Payer name Insurance type Covered constitution party ID Authoriza tion(s) No Information Social [...] Mental Status Date Cognitive Assessment Orientation - [place] ed to time, place, person, situation.
[2024-07-12 15:46] LABS: Basophils Absolute Auto 0.1 K/mm3 (0.0-0.1); Basophils Percent Auto 0.9 % (0.2-1.2); Eosinophils Absolute Auto 0.1 K/mm3 (0-0.3); Eosinophils Percent Auto 2.4 % (0-4.4); Hematocrit 43.6 % (37.0-47.0); Hemoglobin 13.9 g/dL (12.0-15.0); Immature Granulocyte Absolute 0.01 K/mm3 (0.00-0.031); Immature Granulocyte Percent A 0.2 % (0-0.5); Lymphocytes Absolute Auto 1.87 K/mm3 (0.9-3.2); Mean Corpuscular HGB Conc 31.9 g/dl (32-36); Mean Corpuscular Hemoglobin 28.3 pg (26-34); Mean Corpuscular Volume 88.6 fl (80-100); Mean Platelet Volume 10.5 fl (7.4-10.4); Monocytes Absolute Auto 0.4 K/mm3 (0.1-0.6); Monocytes Percent Auto 7.4 % (2.6-8.5); Neutrophils Absolute Auto 3.4 K/mm3 (1.3-6.7); Neutrophils Percent Auto 57.1 % (45.5-73.1); Platelet Count Result 254 k/mm3 (150-375); Red Blood Count 4.92 M/mm3 (4.2-5.4); Red Cell Distribution Width 13.5 % (11.5-14.5); White Blood Count 5.9 K/mm3 (4.5-10.0)
[2024-07-12 15:56] LABS: INR 0.9; Prothrombin Time 12.6 Seconds (11.1-14.7)
[2024-07-12 17:04] LABS: Alanine Aminotransferase 70 U/L (6-35); Albumin Level 4.9 g/dL (3.5-5.1); Alkaline Phosphatase 179 U/L (38-126); Anion Gap 9 mmol/L (4-12); Aspartate Amino Transferase 60 U/L (14-36); Bilirubin,Total 2.4 mg/dL (0.2-1.3); Blood Urea Nitrogen 17 mg/dL (7-17); Calcium 9.8 mg/dL (8.4-10.2); Carbon Dioxide 30 mmol/L (22-30); Chloride 100 mmol/L (98-107); Cholesterol 231 mg/dL (0-200); Estimated Glomerular Filt Rate > 60; Glucose 128 mg/dL (65-110); HDL Direct 109 mg/dL; Iron 126 ug/dL (37-170); Sodium 139 mmol/L (137-145); Triglycerides 91 mg/dL (<150)
[2024-07-12 17:15] LABS: LDL Cholesterol Direct 98 mg/dL
[2024-07-12 17:18] LABS: Percent Iron Saturation 24 % (20-50)
[2024-07-12 17:24] LABS: Free T4 Free Thyroxine 1.33 ng/dL (0.78-2.19)
[2024-07-12 17:26] LABS: Hepatitis B Surface Antigen Negative (Negative)
[2024-07-12 17:32] LABS: HAV RESULT Negative (Negative); Hepatitis B Core IgM Result Negative (Negative)
[2024-07-12 17:36] LABS: Total Triiodothyronine (T3) 1.17 NG/ML (0.97-1.69)
[2024-07-12 17:44] LABS: Hepatitis B Surface Anti Res Negative; Hepatitis C Virus Antibody Negative (Negative)
[2024-07-14 09:48] LABS: Hepatitis A Antibody Total REACTIVE (NON-REACTIVE)
[2024-07-14 12:13] LABS: Alpha Fetoprotein Tumor Marker 4.1 ng/mL
[2024-07-15 01:53] LABS: Alpha-1-Antitrypsin, QN 113 mg/dL (83-199)
[2024-07-16 11:58] LABS: Actin Antibody (IgG) 23 U (<20); LKM 1 Antibody <=20.0 U (<=20.0)
[2024-07-17 14:07] LABS: Anti Nuclear Antibody Pattern Nuclear, Speckled
[2024-07-18 16:19] LABS: Mitochondrial (M2) Ab (IgG) <20.0 U
[2024-07-20 19:28] LABS: ALT 51 U/L (6-29); Alpha-2-Macroglobulin 283 mg/dL (106-279); Apolipoprotein A1 221 mg/dL (101-198); Fibrosis Score 0.42; Fibrosis Stage F1-F2; GGT 115 U/L (3-70); Haptoglobin 138 mg/dL (43-212); Necroinflammat Act Grade A1; Reference ID 5498366; Total Bilirubin 1.4 mg/dL (0.2-1.2)
== END 2024-07-12 15:08 | disposition home or self-care (01) ==
LOC: ANHLAB 15:09
PROVIDERS: PCP Family Medicine; Visit Provider Nurse Practitioner
DX: E78.5 Hyperlipidemia, unspecified (principal); R53.83 Other fatigue; K74.60 Unspecified cirrhosis of liver; Z11.59 Encounter for screening for other viral diseases
CPT/HCPCS: 36415; 80053; 80061; 80074; 81596; 82103; 82105; 82728; 83520; 83540; 83550; 84439; 84443; 84480; 85025; 85610; 86038; 86039; 86364; 86376; 86706; 86708; 86803

== ENCOUNTER 2024-08-04 09:17 | Outpatient (CLI) | payer OTHER, SELFPAY ==
--- NOTE | ~2024-08-04 | US_ITS ---
US abdomen limited INDICATION: Elevated liver function tests. PROCEDURE: Realtime right upper abdominal ultrasound. COMPARISON: No prior studies for comparison. FINDINGS: Pancreas not well visualized due to bowel gas. Liver echotexture is normal without focal m ass or intrahepatic biliary dilatation. There is normal directional flow in the portal vein. Gallbladder is surgically absent. Common bile duct measures 5.5 mm. No sonographic Coronado's sign. I ncidental note is made of a right renal cyst measuring 2.1 cm. IMPRESSION: 1: Unremarkable limited abdominal ultrasound postcholecystectomy. Reviewed, dictated and finalized at location A.
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
--- OUTSIDE RECORDS SUMMARY | 2024-08-04 09:21 | XMS_ITS | CONTINUITY OF CARE DOCUMENT ---
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 Boring Mill Set Up Operator Vertical Name Role Phone Chon Arnold MD Unavailable [phone] BRANDIE BAKER, ROWAN Unavailable [phone] BRANDIE BAKER, ROWAN Unavailable PROBLEMS Condition Status [...] In-person encounter Office Visit Chon Arnold MD [facility] Abnormal stress test - In-person encounter Office Visit Chon Arnold MD [facility] - In-person encounter Office Visit Chon Arnold MD [facility] Family History of Sudden Cardiac :Preoperative cardiovascular examinationLeg pain - In-person encounter Office Visit Chon Arnold MD [facility] - In-person encounter Office Visit Chon Arnold MD [facility] LOW BACK PAIN, ACUTE - In-person encounter Office Visit Chon Arnold MD [facility] - In-person encounter Office Visit Emeka Wall MD [facility] SLEEP APNEA-10/06 NO OBSTRUCTION. - In-person encounter Office Visit Emeka Wall MD [facility] - In-person encounter Office Visit Agapito Copeland MD [facility] HTN HEART DISEASE W/O CHF-09/06 ECHO EF 555/08 ECHO EF 55 LVHAbnormal stress testCHEST PAIN-04/08 CATH NORMSLEEP APNEA-10/06 NO OBSTRUCTION. - In-person encounter Office Visit Emeka Wall MD [facility] HTN HEART DISEASE W/O CHF-09/06 ECHO [...] Nina Park blood pressure, diastolic 82 mm[Hg] Wi prem Xavier blood pressure, systolic 118 mm[Hg] [...] diastolic, right arm 94 m m[Hg] Nina Hutsno blood pressure, systolic, right arm 155 m m[Hg] Nina Hutson Body Mass Index (Ratio) 45.70 kg/m2 [facility] negrito Hutson blood pressure, diastolic 96 mm[Hg] Wi prem Hutson blood pressure, systolic 161 mm[Hg] Daria bull Hutson pulse rate 88 /min Nina Hutson oxygen saturation, oximetry 98 % Nina Hutson respiratory rate E&M 15 /min Nina Hutson weight E&M 234 [lb_av] Nina Hutson blood pressure, diastolic 108 mm[Hg] Wi prem Hutson blood pressure, systolic 182 mm[Hg] Daria bull Hutson pulse rate 102 /min Nina Hutson oxygen saturation, oximetry 98 % Nina Hutson Body Mass Index (Ratio) 44.91 kg/m2 [facility] respiratory rate E&M 16 /min Nina [...] pr essure, sitting, left arm, diastolic 86 [facility] orthostatic blood pr essure, sitting, left arm, systolic 128 [facility] orthostatic blood pr essure, sitting, right arm, diastolic 86 [facility] orthostatic blood pr essure, sitting, right arm, systolic 122 [facility] pulse rate 79 /min [facility] oxygen saturation, oximetry 99 % [facility] height in centimeters E&M 0 cm [facility] blood pressure, diastolic, left arm 118 m m[Hg] [facility] blood pressure, systolic, left arm 177 mm [Hg] [facility] blood pressure, diastolic, right arm 117 mm[Hg] [facility] blood pressure, systolic, right arm 170 m m[Hg] [facility] blood pressure, diastolic 117 mm[Hg] [facility] blood pressure, systolic 170 mm[Hg] [facility] pulse rate 89 /min [facility] oxygen saturation, oximetry 98 % [facility] respiratory rate E&M 16 /min [facility] weight E&M 222 [lb_av] Glenn[facility] Clementeran blood pressure, diastolic, left arm 113 m m[Hg] [facility] blood pressure, systolic, left arm 178 mm [Hg] [facility] blood pressure, diastolic, right arm 98 m m[Hg] [facility] blood pressure, systolic, right arm 174 m m[Hg] [facility] blood pressure, diastolic 98 mm[Hg] Gonzalo Douglas blood pressure, systolic 174 mm[Hg] [facility] oxygen saturation, oximetry 97 % [facility] pulse rate 91 /min Arcelia York respiratory [...] Sanz blood pressure, diastolic 100 mm[Hg] Wang Snaz blood pressure, systolic 150 mm[Hg] Manley pulse [...] 6 Absolute Neutrophil count 4896 cells/mcL LinkLog [id number] Normal 6 platelet count 213 THOUSAND/ UL [...] Normal alanine aminotransferase (SGPT), serum 43 1/L [facility] 6[facility]40 High aspartate aminotransferase (SGOT), serum 42 1/L [facility] 10-30 High alkaline phosphatase, serum 111 1/L [facility] 33-115 Normal bilirubin, serum, total 1.8 mg/dL [facility] 0.2-1.2 High albumin/globulin ratio, serum 1.2 (calc) [facility] 1.0-2.1 Normal globulins, serum, total 3.3 G/DL (CALC) [facility] 2.2-3.9 Normal albumin, serum 4.1 g/dL [facility] 3.6-5.1 Normal protein, total, serum 7.4 g/dL [facility] 6.2-8.3 Normal calcium, serum 9.4 mg/dL [facility] 8.6-10.2 Normal carbon dioxide, venous blood 21 mmol/L [facility] 21-33 Normal chloride, serum 101 mmol/L [facility] 98-110 Normal potassium, serum 4.8 mmol/L [facility] 3.5-5.3 Normal sodium, serum 136 mmol/L [facility] 135-146 Normal urea nitrogen/creatinine ratio, serum 20 (calc) [facility] 6-22 Normal 6 Estimated Glomerular Filtration Rate [...] day none Nina Xavier alcohol use no Nnia Xavier drug use no Nina Park passive [...] Angina (inactive) Management Plan continue current therapy [facility] MENTAL STATUS Date Observation Value Provider [...] Policy type / Coverage type [employer]vin [employer] party ID [employer] Medicaid [id number] TREATMENT PLAN Date Name Performer Cardiology:No chest [...] ejection fraction is estimated a t 55%. [facility] (09/11/2008) Emeka Wall MD anxiety: H er [...] by mouth daily Lovaza 1 Gm Caps (Nxxoy-3-avsq ethyl esters) ..... 2 tabs by mouth daily BP today: 156/97 Prior BP: 150/100 (09/01/2007) C HOL: 300 (09/03/2008) LDL: 200 MG/DL (CALC) (09/03/2008) HDL: 50 (09/03/2008) T (09/03/2008) w ill need to check a flp in 4 weeks along with ast/alt as she has a hx of liver problems. O rders: C OMPREHENSIVE METABOLIC PANEL W/EGFR (83740) L IPID PANEL (7600) Emeka Wall MD [...] by mouth daily Lovaza 1 Gm Caps (Eoqwi-5-rubq ethyl esters) ..... 2 tabs by mouth [...] tatus EKG Chon Arnold MD completed SNOMED-CT: [id number] Current Medications Documented Chon Arnold MD completed EKG Chon Arnold MD completed ePrescribe - Check t his box if eRx is used Chon Arnold MD completed EKG Chon Arnold MD completed EKG Chon Arnold MD completed EKG Chon Arnold MD completed EKG Agapito Copeland MD completed
--- OUTSIDE RECORDS SUMMARY | 2024-08-04 09:21 | XMS_ITS | Clinical Summary ---
Author Organization [facility] [employer] Address [address] [place] [address] Care Team Providers Care High Man Name Role Phone Unavailable Primary Care Provider Unavailabl e Source Comments [facility] [employer],non-owned Affiliates and Associated Physician Practices is amultiple site organization consisting of ambulatory clinics and hospital sitesin [place], [place], [place] and [place]. This disclosure is being madepursuant to the Care Everywhere program and may not contain all information available regarding this patient. 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
--- OUTSIDE RECORDS SUMMARY | 2024-08-04 09:21 | XMS_ITS | Continuity of Care Document ---
Author Organization [facility] Address [address] [place] [address] [place] [address] Phone Care Team Providers Care Oilseed Meat Presser Name Role Phone Tito Coronado MD Unavailable [...] operate machines Procedures Procedure Date OFFICE/OUTPATIENT VISIT, [facility] Advance Directives Directive Yes / No Effective Date File Name No Information Encounters Encounter Description Practice Location Reason(s) For Visit Diagnoses Date Provider Providers Copied on Encounter OFFICE/OUTPAT IENT VISIT, [facility], [address] [place], [place], [id number], tel:[phone] [facility] anxiety (chief complaint) Dietary surveillance and counselingMajor depressive affective disorder, single episode, mild degreeGeneralized anxiety disorderBipolar disorder, unspecified 0-201 4 Cliff Francis. [address], [place], [id number] , [place]. tel:[phone] Family History Family Member Type Diagnosis Age At Onset Father Problem (finding) Coronary artery disease Mother Problem (finding) Diabetes mellitus Payers Payer name Insurance type Covered libertarian ID Authoriza tion(s) No Information Social History [...] Mental Status Date Cognitive Assessment Orientation - Jolley ed to time, place, person, situation.
== END 2024-08-04 09:18 | disposition home or self-care (01) ==
PROVIDERS: PCP Family Medicine; Visit Provider Nurse Practitioner
DX: K74.60 Unspecified cirrhosis of liver (principal); R74.8 Abnormal levels of other serum enzymes
CPT/HCPCS: 76705

== ENCOUNTER 2024-09-20 15:07 | Outpatient (CLI) | payer OTHER, SELFPAY ==
--- OUTSIDE RECORDS SUMMARY | 2024-09-20 15:11 | XMS_ITS | Clinical Summary ---
Author Organization [facility] Address [address] [place] [address] Care Team Providers Care Home Health Aide Name Role Phone Unavailable Primary Care Provider Unavailabl e Source Comments [facility],non-owned Affiliates and Associated Physician Practices is amultiple site organization consisting of ambulatory clinics and hospital sitesin [place], [place], [place] and [place]. This disclosure is being madepursuant to the Care Everywhere program and may not contain all information available regarding this patient. Last updated 17.[facility] Social History Tobacco Use Types Packs/Day Years Used Date Smoking Tobacco: Never Assessed Comments Unknown Sex and Gender Information Value Date Recorded Sex Assigned at Not on file Legal Sex Female 6:23 PM MANAGEMENT EXP[employer] Gender Identity Not on file Sexual Orientation [...] season) 2023 DEPRESSION SCREENING 03/01/2024 INFLUENZA VACCINE (#1) 2024 04/14/2021 COLON MONITORING 04/17/2031 04/17/2021 COLONOSCOPY - COLON [...] patient's age to complete this topic Insurance [facility]
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
--- OUTSIDE RECORDS SUMMARY | 2024-09-20 15:11 | XMS_ITS | Continuity of Care Document ---
Author Organization [facility] Address [email or web address] [address] [place] [address] Phone Care Team Providers Care Operator Receptionist Name Role Phone Tito Coronado MD Unavailable [...] operate machines Procedures Procedure Date OFFICE/OUTPATIENT VISIT, [facility] Advance Directives Directive Yes / No Effective Date File Name No Information Encounters Encounter Description Practice Location Reason(s) For Visit Diagnoses Date Provider Providers Copied on Encounter OFFICE/OUTPAT IENT VISIT, [facility], [address] [place], [place], [id number], tel:[phone] [facility] anxiety (chief complaint) Dietary surveillance and counselingMajor depressive affective disorder, single episode, mild degreeGeneralized anxiety disorderBipolar disorder, unspecified 0-201 4 [address]. [email or web address], [place], [id number] , [place]. tel:[phone] Family History Family Member Type Diagnosis Age [...] Mental Status Date Cognitive Assessment Orientation - [place] ed to time, place, person, situation.
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
[2024-09-20 15:52] LABS: Alanine Aminotransferase 28 U/L (6-35); Albumin Level 4.1 g/dL (3.5-5.1); Alkaline Phosphatase 115 U/L (38-126); Aspartate Amino Transferase 40 U/L (14-36); Bilirubin,Total 1.0 mg/dL (0.2-1.3); Total Protein 6.8 g/dL (6.3-8.2)
== END 2024-09-20 15:08 | disposition home or self-care (01) ==
LOC: ANHLAB 15:09
PROVIDERS: PCP Family Medicine; Visit Provider Nurse Practitioner
DX: R74.8 Abnormal levels of other serum enzymes (principal); R76.8 Other specified abnormal immunological findings in serum; K74.60 Unspecified cirrhosis of liver
CPT/HCPCS: 36415; 80076

== ENCOUNTER 2024-09-29 01:46 | Day surgery (SDC) | payer OTHER, SELFPAY ==
[2024-09-18 14:13] VITALS: BMI 31.2
--- OUTSIDE RECORDS SUMMARY | 2024-09-29 01:49 | XMS_ITS | Clinical Summary ---
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 She does have IBS but I am concerned about pancreatic enzyme insufficiency. Will check pancreatic fecal elastase level. Oropharyngeal dysphagia 02/04/2022 Assessment & Plan (02/04/2022 11:12 AM TIER OVER): She complain of p hlegm in the [...] planned. Assessment & Plan (04/07/2022 8:35 PM TIER OVER): Chronic condition, persistent symptoms, but functioning at [...] discussed Assessment & Plan (04/07/2022 8:34 PM TIER OVER): Chronic condition with persistent symptoms. Medication changes today: None Insight-oriented, supportive counseling provided. Continued management as discussed Assessment & Plan (11/28/2021 4:55 PM CDT): Chronic condition with persistent symptoms. Medication changes today: Lamotrigine added for mood. Insight-oriented, supportive counseling provided. Continued management as discussed Irritable bowel syndrome 05/28/2021 Assessment & Plan (02/04/2022 11:02 AM TIER OVER): Doing ok. Continue Konsyl and dicyclomine PRN [...] 04/19/2021 Assessment & Plan (04/19/2021 10:18 PM TIER OVER): Level = 6 Supplement with 5,000 international units daily while in hospital. Will need to be addressed as outpatient as well. Trauma in childhood 04/16/2021 Assessment & Plan (04/16/2021 4:27 PM TIER OVER): FAYE = 7 #3+ Needs outpatient trauma focused therapy. Chronic post-traumatic stress disorder (PTSD) Assessment & Plan (05/24/2023 2:23 PM CDT): Chronic, persistent, needs outpatient trauma focused therapy. EMDR. Continue Zoloft 50 mg daily but increase to 100 mg daily. Prazosin 2 mg HS 30 min prior to bedtime. Monitor at interval. Assessment & Plan (04/16/2021 4:28 PM TIER OVER): Chronic, persistent, needs outpatient trauma focused therapy. EMDR. Start Zoloft 25 mg daily and titrate up for effectiveness. Lamotrigine for mood augmentation. Will need outpatient psychiatry follow-up. Monitor at interval. SOB (shortness of breath) 04/13/2021 Anemia 04/13/2021 Nausea 04/13/2021 History of bipolar disorder 04/13/2021 Cirrhosis 04/13/2021 Assessment & Plan (02/04/2022 11:03 AM TIER OVER): No evidence of decompensation. She was advised [...] on file Legal Sex Female 8:10 AM TIER OVER Gender Identity Female 08/26/2021 12:30 PM CDT Sexual Orientation Not on file Obstetrics History Last Filed Vital Signs Vital Sign Reading Time Taken Comments Blood Pressure 166/103 05/04/2024 1:51 AM TIER OVER Pulse 88 05/04/2024 1:51 AM TIER OVER Temperature 37.2 C (98.9 F) 05/04/2024 1:51 AM TIER OVER Respiratory Rate 20 05/04/2024 1:51 AM TIER OVER Oxygen Saturation 95% 05/04/2024 1:51 AM TIER OVER Inhaled Oxygen Concentration - - Weight 75.3 kg (166 lb) 05/04/2024 1:51 AM TIER OVER Height 154.9 cm (5' 1) 05/04/2024 1:51 AM TIER OVER Body Mass Index 31.37 05/04/2024 1:51 AM TIER OVER Plan of Treatment Health Maintenance Due Date [...] 08/04/2021, 03/01 Medical Devices Implanted Type Area Ict Programmer Device Identifier Shelf Expiration Date Model / Serial / Lot Medtronic Card Vasc Surgery 2.50 X 26mm [place] Rx Coronary Stent [id number] - [id number] Implanted:Qty: 1 on 03/18/2022 by Ashwin Haddad MD at [facility] Medtronic Card Vasc Surgery 07/24/2023 [id number] / / [id number] [employer] Angio-Seal Vip 6fr Closere Device [id number] - [id number] Implanted:Qty: 1 on 03/18/2022 by Ashwin Haddad MD at [facility] [employer] 11/28/2022 [id number] / / [id number] Procedures Procedure Name Priority Date/Time Associated Diagnosis Comments POCT LIPID PANEL Routine 04/21/2024 12:1 2 PM TIER OVER Type 2 diabetes mellitus without complication, without long-term current use of insulin (HCC) Vitamin D deficiency EGFR STAT 04/16/2024 9:16 PM TIER OVER COLONOSCOPY 04/17/2021 2:01 PM TIER OVER HEMOGLOBIN A1C Routine 04/15/2021 4:51 AM TIER OVER HEPATITIS PANEL, ACUTE Routine 04/13/2021 4:54 PM TIER OVER from Last 3 Months or Most Recently Relevant to Health Maintenance Results * POCT lipid panel (04/21/2024 12:12 PM TIER OVER) Cholesterol, POC 202 mg/dL HDL, POC 81 mg/dL Triglycerides, POC 149 mg/dL LDL Cholesterol POC 91 mg/dL Chol/HDL Ratio, POC 2.5 Non-HDL Cholesterol, POC 121 mg/dL Cholesterol Total, POC 202 mg/dL Capillary blood 04/21/2024 1 2:12 PM TIER OVER us Ashwin Haddad MD POINT OF CARE TEST O RDERABLES Final Result * eGFR (04/16/2024 9:16 PM TIER OVER) eGFR >90 >=60 mL/min/1. 73 m2 Comment: [...] last reviewed 2020. Blood 04/16/2024 9:16 PM TIER OVER 04/16/2024 9:24 PM TIER OVER us Yemi Pryor MD LAB BLOOD ORDERABLES Final Result Performing Organization Address City/State/ZIP Co or Phone Number [facility] [address] [facility] Department of Laboratories [place], [place] [id number] * COLONOSCOPY (04/17/2021 2:01 PM TIER OVER) Anatomical Region Laterality Modality Other Narrative Procedure Note Klever Alexandre MD - 04/17/2021 2:01 PM CST [facility] Endoscopy Lab Patient Name: Marina [...] by the physician, the nurse and the crane oiler in the procedure room. Mental Status Examination: [...] screening purposes. Procedure Code(s): --- Professional --- 62142, Colonoscopy, flexible; diagnostic, including collection of specimen(s) by brushing or washing,when performed (separate procedure) Diagnosis Code(s): --- Professional --- D50.9, Iron deficiency anemia, unspecified K57.30, Diverticulosis of large intestine without perforation or abscess without bleeding CPT copyright 2019 [employer]. All rights reserved. The codes documented in this report are preliminary and upon real estate legal assistant reviewmay be revised to meet current compliance requirements. Electronically signed by Klever Alexandre M.D. Klever Alexandre M.D. 04/17/2021 2:49:34 PM Number of Addenda: 0 Note Initiated On: 04/17/2021 2:01 PM Klever Alexandre MD ENDOSCOPY PROCEDURES Fi nal Result * Hemoglobin A1c (04/15/2021 4:51 AM TIER OVER) Hgb A1C 5.5 4.0 - 5.6 % [facility] Estimated Average Glucose 111 mg/dL [facility] Comment: The ADA recommends reporting an estimated Average Glucose (eAG) with all Hemoglobin A1c results using the equation derived from a study of 507 normal and diabetic adults. Minority populations were underrepresented and children were not included. (Diabetes Care 31:7379-5878, 2008). The eAG is not equivalent to a fasting glucose. Blood 04/15/2021 4:51 AM TIER OVER 04/15/2021 5:26 AM TIER OVER us Lida Maddox MD LAB BLOOD ORDERABLE S Final Result Performing Organization Address [facility] Co de Phone Number [facility] [address] [employer] [place] [address] * Hepatitis panel, acute (04/13/2021 4:54 PM TIER OVER) Hep A IgM Nonreactive Nonreactive [facility] Comment: Interpretive Data: If Hep A IgM Ab is reported as Equivocal, a new sample should be drawn in two weeks for testing. Current interpretive data was last revised on 19. Hep B core IgM Nonreactive Nonreactive [facility] Comment: Interpretive Data If HepB Core IgM Ab is reported as Equivocal, a new sample should be drawn in two weeks for testing. Current interpretive data was last revised on 19. Hep C Ab Nonreactive Nonreactive [facility] Comment: Interpretive Data Nonreactive: Antibodies to [...] last revised on 2019. HepBsAg Nonreactive Nonreactive [facility] Blood 04/13/2021 4:54 PM TIER OVER 04/13/2021 5:12 PM TIER OVER us Klever Alexandre MD LAB MICROBIOLOGY - GENE RAL ORDERABLES Final Result Performing Organization Address City/[facility]/ZIP Co de Phone Number [facility] [address] [employer] [place] [address] from Last 3 Months or Most Recently Relevant to Health Maintenance Insurance [facility] Advance Directives For more information, please contact: [phone] * Full Code (Latest Code Status on [...] 9:39 AM 04/17/2021 1:57 PM Care Teams Food Runner Relationship Specialty Start Date End Date Khanh Altamirano MD [address] [facility] [address] [place] [address] PCP - General Family Medicine 11/13/22 [place] [address] [address] Consulting Physician Gastroenterology 04/20/21 [place] [address] [address] Consulting Physician Internal Medicine 04/20/21 [place] [address] [address] Consulting Physician Gastroenterology 05/08/21
--- OUTSIDE RECORDS SUMMARY | 2024-09-29 01:49 | XMS_ITS | Clinical Summary ---
Author Organization [facility] Address [address] [place] [address] Care Team Providers Care Automatic Spooler Operator Name Role Phone Unavailable Primary Care Provider Unavailabl e Source Comments [facility],non-owned Affiliates and Associated Physician Practices is amultiple site organization consisting of ambulatory clinics and hospital sitesin [place], [place], [place] and [place]. This disclosure is being madepursuant to the Care Everywhere program and may not contain all information available regarding this patient. Last updated 17.[facility] Social History Tobacco Use Types Packs/Day Years Used Date Smoking Tobacco: Never Assessed Comments Unknown Sex and Gender Information Value Date Recorded Sex Assigned at Not on file Legal Sex Female 6:23 PM HANDS ASSEMBLER Gender Identity Not on file Sexual Orientation [...] patient's age to complete this topic Insurance [facility]
--- OUTSIDE RECORDS SUMMARY | 2024-09-29 01:49 | XMS_ITS | Referral Summary ---
Author Organization [facility] [address] Address [address] [place] [address] Care Team Providers Care Clerical Adviser Name Role Phone Klever Alexandre MD Unavailable Poncho Sanabria MD Unavailable Conrado Rice MD Unavailable Khanh Altamirano MD Primary Care Provider Allergies Active Allergy Reactions Criticality Noted Date Comments Cyclobenzaprine Hives Medium 04/13/2021 Lisinopril Cough High 05/04/2012 Jmueewm-Rcl-Pro Reductase Inhibitors Other (See comments) Low 11/13/2022 [...] insomnia 02/05/2023 Coronary artery disease invo lving [place] coronary artery of [place] heart without angina pectoris 12/24/2022 Vaginal bleeding 12/24/2022 Allergy to statin medication 11/13/2022 Abnormal stress test 03/03/2022 Overview (03/03/2022): Added automatically from request for surgery [id number] Chronic combined systolic an d diastolic congestive heart failure 02/06/2022 Other chest pain 02/06/2022 Rectal bleeding 02/04/2022 Assessment & Plan (02/04/2022 11:02 AM [employer]URF FARM WORKER): She had several days of rectal bleeding [...] 02/04/2022 Assessment & Plan (02/04/2022 11:00 AM TURF FARM WORKER): She complain of oily stools. She does have IBS but I am concerned about pancreatic enzyme insufficiency. Will check pancreatic fecal elastase level. Oropharyngeal dysphagia 02/04/2022 Assessment & Plan (02/04/2022 11:12 AM TUR[employer] FARM WORKER): She complain of p hlegm in the [...] planned. Assessment & Plan (04/07/2022 8:35 PM TUR[employer] FARM WORKER): Chronic condition, persistent symptoms, but functioning at [...] discussed Assessment & Plan (04/07/2022 8:34 PM TUR[employer] FARM WORKER): Chronic condition with persistent symptoms. Medication changes today: None Insight-oriented, supportive counseling provided. Continued management as discussed Assessment & Plan (11/28/2021 4:55 PM CDT): Chronic condition with persistent symptoms. Medication changes today: Lamotrigine added for mood. Insight-oriented, supportive counseling provided. Continued management as discussed Irritable bowel syndrome 05/28/2021 Assessment & Plan (02/04/2022 11:02 AM TURF FARM WORKER): Doing ok. Continue Konsyl and dicyclomine PRN [...] 04/19/2021 Assessment & Plan (04/19/2021 10:18 PM TURF FARM WORKER): Level = 6 Supplement with 5,000 international units daily while in hospital. Will need to be addressed as outpatient as well. Trauma in childhood 04/16/2021 Assessment & Plan (04/16/2021 4:27 PM [employer] FARM WORKER): FAYE = 7 #3+ Needs outpatient trauma focused therapy. Chronic post-traumatic stress disorder (PTSD) Assessment & Plan (05/24/2023 2:23 PM CDT): Chronic, persistent, needs outpatient trauma focused therapy. EMDR. Continue Zoloft 50 mg daily but increase to 100 mg daily. Prazosin 2 mg HS 30 min prior to bedtime. Monitor at interval. Assessment & Plan (04/16/2021 4:28 PM TUR[employer] FARM WORKER): Chronic, persistent, needs outpatient trauma focused therapy. EMDR. Start Zoloft 25 mg daily and titrate up for effectiveness. Lamotrigine for mood augmentation. Will need outpatient psychiatry follow-up. Monitor at interval. SOB (shortness of breath) 04/13/2021 Anemia 04/13/2021 Nausea 04/13/2021 History of bipolar disorder 04/13/2021 Cirrhosis 04/13/2021 Assessment & Plan (02/04/2022 11:03 AM TUR[employer] FARM WORKER): No evidence of decompensation. She was advised [...] on file Legal Sex Female 8:10 AM [employer] FARM WORKER Gender Identity Female 08/26/2021 12:30 PM CDT Sexual Orientation Not on file Last Filed Vital Signs Vital Sign Reading Time Taken Comments Blood Pressure 166/103 05/04/2024 1:51 AM [employer]ARM WORKER Pulse 88 05/04/2024 1:51 AM [employer] FARM WORKER Temperature 37.2 C (98.9 F) 05/04/2024 1:51 AM [employer] WORKER Respiratory Rate 20 05/04/2024 1:51 AM [employer] FARM WORKER Oxygen Saturation 95% 05/04/2024 1:51 AM [employer] WORKER Inhaled Oxygen Concentration - - Weight 75.3 kg (166 lb) 05/04/2024 1:51 AM [employer] F[employer] WORKER Height 154.9 cm (5' 1) 05/04/2024 1:51 AM [employer] WORKER Body Mass Index 31.37 05/04/2024 1:51 AM [employer] FARM WORKER Plan of Treatment Not on file Medical Devices Implanted Type Area Emergency Planning And Response Manager Device Identifier Shelf Expiration Date Model / Serial / Lot Medtronic Card Vasc Surgery 2.50 X 26mm [place] Rx Coronary Stent [id number] - [id number] Implanted:Qty: 1 on 03/18/2022 by Ashwin Haddad MD at [facility] Medtronic Card Vasc Surgery 07/24/2023 [id number] / / [id number] Angio-Seal Vip 6fr Closere Device [id number] - [id number] Implanted:Qty: 1 on 03/18/2022 [facility] 11/28/2022 [id number] / / [id number] Procedures Procedure Name Priority Date/Time Associated Diagnosis Comments POCT LIPID PANEL Routine 04/21/2024 12:1 2 PM [employer] WORKER Type 2 diabetes mellitus without complication, without long-term current use of insulin (HCC) Vitamin D deficiency EGFR STAT 04/16/2024 9:16 PM [employer] F[employer] WORKER COLONOSCOPY 04/17/2021 2:01 PM [employer] F[employer] WORKER HEMOGLOBIN A1C Routine 04/15/2021 4:51 AM [employer] FARM WORKER HEPATITIS PANEL, ACUTE Routine 04/13/2021 4:54 PM [employer] WORKER from Last 3 Months or Most Recently Relevant to Health Maintenance Results * POCT lipid panel (04/21/2024 12:12 PM T[employer] F[employer] WORKER) Cholesterol, POC 202 mg/dL HDL, POC 81 mg/dL Triglycerides, POC 149 mg/dL LDL Cholesterol POC 91 mg/dL Chol/HDL Ratio, POC 2.5 Non-HDL Cholesterol, POC 121 mg/dL Cholesterol Total, POC 202 mg/dL Capillary blood 04/21/2024 1 2:12 PM [employer] WORKER us Ashwin Haddad MD POINT OF CARE TEST O RDERABLES Final Result * eGFR (04/16/2024 9:16 PM T[employer] F[employer] WORKER) eGFR >90 >=60 mL/min/1. 73 m2 Comment: [...] last reviewed 2020. Blood 04/16/2024 9:16 PM [employer] FARM WORKER 04/16/2024 9:24 PM [employer] WORKER us Yemi Pryor MD LAB BLOOD ORDERABLES Final Result [facility] [id number] Department [place] [address] * COLONOSCOPY (04/17/2021 2:01 PM TURF FARM WORKER) Anatomical Region Laterality Modality Other Narrative Procedure Note Klever Alexandre MD - 04/17/2021 2:01 PM CST [facility] Patient Name: Marina Coronado Procedure [...] by the physician, the nurse and the product promoter sales person in the procedure room. Mental Status Examination: [...] screening purposes. Procedure Code(s): --- Professional --- 13868, Colonoscopy, flexible; diagnostic, including collection of specimen(s) by brushing or washing,when performed (separate procedure) Diagnosis Code(s): --- Professional --- D50.9, Iron deficiency anemia, unspecified K57.30, Diverticulosis of large intestine without perforation or abscess without bleeding CPT copyright 2019 [employer]. All rights reserved. The codes documented in this report are preliminary and upon inside wireman reviewmay be revised to meet current compliance requirements. Electronically signed by Klever Alexandre M.D. Klever Alexandre M.D. 04/17/2021 2:49:34 PM Number of Addenda: 0 Note Initiated On: 04/17/2021 2:01 PM us Klever Alexandre MD ENDOSCOPY PROCEDURES Fi nal Result * Hemoglobin A1c (04/15/2021 4:51 AM TURF FARM WORKER) Hgb A1C 5.5 4.0 - 5.6 % [facility] Estimated Average Glucose 111 mg/dL [facility] Comment: The ADA recommends reporting an estimated Average Glucose (eAG) with all Hemoglobin A1c results using the equation derived from a study of 507 normal and diabetic adults. Minority populations were underrepresented and children were not included. (Diabetes Care 31:8573-2208, 2008). The eAG is not equivalent to a fasting glucose. Blood 04/15/2021 4:51 AM TUR[employer] FARM WORKER 04/15/2021 5:26 AM [employer]URF FARM WORKER us Lida Maddox MD LAB BLOOD ORDERABLE S Final Result [facility] [address] Department [place] [address] * Hepatitis panel, acute (04/13/2021 4:54 PM T[employer] FARM WORKER) Hep A IgM Nonreactive Nonreactive [facility] Comment: Interpretive Data: If Hep A IgM Ab is reported as Equivocal, a new sample should be drawn in two weeks for testing. Current interpretive data was last revised on 19. Hep B core IgM Nonreactive Nonreactive [facility] Comment: Interpretive Data If HepB Core IgM Ab is reported as Equivocal, a new sample should be drawn in two weeks for testing. Current interpretive data was last revised on 19. Hep C Ab Nonreactive Nonreactive [facility] Comment: Interpretive Data Nonreactive: Antibodies to HCV [...] revised on 2019. HepBsAg Nonreactive Nonreactive [facility] Blood 04/13/2021 4:54 PM TURF FARM WORKER 04/13/2021 5:12 PM TURF FARM WORKER Klever Alexandre MD LAB MICROBIOLOGY - GENE RAL [place] [address] [address] Department [place] [address] from Last 3 Months or Most Recently Relevant to Health Maintenance Insurance [facility] Advance Directives For more information, please contact: [phone] * Full Code (Latest Code Status on [...] 9:39 AM 04/17/2021 1:57 PM Care Teams Clerical Adviser Relationship Specialty Start Date End Date Khanh Altamirano MD [address] [place] [address] PCP - General Family Medicine 11/13/22 [place] [address] [facility] [address] [place] [address] Consulting Physician Gastroenterology 04/20/21 [place] [address] [facility] [address], [place] [address] Consulting Physician Internal Medicine 04/20/21 [place] [address] [facility] [address], [place] [address] Consulting Physician Gastroenterology 05/08/21
--- OUTSIDE RECORDS SUMMARY | 2024-09-29 01:49 | XMS_ITS | Continuity of Care Document ---
Author Organization [facility] Address [address] [place] [address] [place] [address] Phone Care Team Providers Care Telegraph Editor Name Role Phone Tito Coronado MD Unavailable [...] operate machines Procedures Procedure Date OFFICE/OUTPATIENT VISIT, [facility] Advance Directives Directive Yes / No Effective Date File Name No Information Encounters Encounter Description Practice Location Reason(s) For Visit Diagnoses Date Provider Providers Copied on Encounter OFFICE/OUTPAT IENT VISIT, [facility], [address] [place], [place], [id number], tel:[phone] [facility] anxiety (chief complaint) Dietary surveillance and counselingMajor depressive affective disorder, single episode, mild degreeGeneralized anxiety disorderBipolar disorder, unspecified 0-201 4 Cliff Francis. [address] [place], [place], [id number] , [place]. tel:[phone] Family History Family Member Type Diagnosis Age [...] Mental Status Date Cognitive Assessment Orientation - [place] Shoe ed to time, place, person, situation.
[2024-09-29 08:38] VITALS: BP 145/84; PULSE 71; RESP 19; TEMP 36.7; O2SAT 99
[2024-09-29] MEDS: LACTATED RINGERS 1,000 ML 150 ML IV CONT (08:41)
--- NOTE | 2024-09-29 09:50 | P.PNAN_ITS ---
Anes - Initial Pre Proc Eval Procedure: Operation Date: 09/29/24 13:30 Proposed Procedures p Esophagogastroduodenoscopy - Rajiv Lucero MD Date/Time: 09/29/24 09:50 Surgeon: Rajiv Lucero MD Pre Op Diagnosis: Unspecified cirrhosis of liver Patient Data Age: 54 Gender: F Height: 1.52 m Weight: 70.2 kg Last Vital Signs Temp 36.7 C 09/29/24 08:38 Pulse 71 09/29/24 08:38 Resp 19 09/29/24 08:38 BP 145/84 H 09/29/24 08:38 Pulse Ox 99 09/29/24 08:38 O2 Del Method Room Air 09/29/24 08:38 Allergies Allergy/AdvReac Type Severity Reaction Status Date / Time cyclobenzaprine Allergy Mild ITCHING Verified 09/20/24 14:27 Home Medications ?Medication ?Instructions ?Recorded ?Confirmed ?Type aspirin 81 mg tablet 81 mg PO DAILY 07/12/24 09/29/24 History bupropion HCl 150 mg 24 hr tablet, 150 mg PO QAM 07/12/24 09/29/24 History extended release (Wellbutrin XL) carvedilol 12.5 mg tablet 12.5 mg PO Q12H 07/12/24 09/29/24 History ezetimibe 10 mg tablet 10 mg PO DAILY 07/12/24 09/29/24 History furosemide 20 mg tablet 20 mg PO QAM 07/12/24 09/29/24 History losartan 50 mg tablet 50 mg PO DAILY 07/12/24 09/29/24 History omeprazole 40 mg capsule,delayed 40 mg PO DAILY #30 caps 07/12/24 09/29/24 Rx release sertraline 150 mg capsule 100 mg PO DAILY 07/12/24 09/29/24 History trazodone 50 mg tablet 50 mg PO QHS PRN sleep 07/12/24 09/20/24 History Patient hx anesthesia problems: none Family hx anesthesia problems: none Results Review: All pre-operative results and documents have been reviewed as part of the pre- operative evaluation. [facility] Past Medical History Medical History CHF (congestive heart failure) Family History Family History Mother Hypertension Thyroid disease Father Heart disease Hypertension Social History Social History Smoking status: Never smoker Substance use type: marijuana Last use: once every few months Living arrangements: with family Spiritual care concerns: No Anes - Eval Final PreProcedure Day of Procedure 09/29/24 09:50 Patient weight: obese Heart: regular rate and rhythm Lungs: clear to auscultation Airway: Mallampati scale class II Neurological: alert and oriented Last oral intake: >/= 8 hours ASA classification: III Emergent: no Anesthetic plan: proceed Anesthesia type and monitoring: general GIVS and standard monitoring Results Review: All pre-operative results and documents have been reviewed as part of the pre- operative evaluation. Informed Consent: The patient's anesthetic plan and its attendant risks and benefits were discussed with the patient/family/POA. Questions were solicited and answers provided to the satisfaction of the patient/family/POA.
--- NOTE | 2024-09-29 09:54 | WPDHPUPDATE1 ---
History and Physical Update Update Date/Time: 09/29/24 09:54 History and Physical has been reviewed, including an updated exam of the patient. There are NO changes in the patient's condition. Risks, benefits, and alternatives have been discussed and questions answered. Patient agrees to proceed with procedure.
[2024-09-29 10:00] VITALS: BP 167/95; PULSE 68; RESP 17; O2SAT 98
--- NOTE | 2024-09-29 10:01 | S_PTH ---
PATIENT: Marina Coronado LOC: [facility]#:[id number] AGE/SX: 54/F ROOM: RE09/29/[address]: Rajiv Lucero MD : 1970 BED: DIS: 09/29/2024 SPEC #: [id number] RECD: 09/29/24 11:45 STATUS: DAPHNE REQ #: [id number] ISAIAS: 09/29/24 10:[address]: Rajiv Lucero DEPT: [facility] Surgical RECD BY: Andria Acevedo ENTERED: 09/29/24 11:45 SP TYPE: Surgical OTHR DR: Khanh Altamirano MD Tissues: A - Gastric Biopsy Procedures: Hematoxylin and Eosin Stain Gross and Microscopic Level 4
[2024-09-29 10:10] VITALS: BP 134/80; PULSE 70; RESP 17; O2SAT 100
[2024-09-29 10:20] VITALS: BP 148/81; PULSE 72; RESP 18; O2SAT 100
== END 2024-09-29 10:40 | disposition home or self-care (01) ==
PROVIDERS: PCP Family Medicine; Referring Provider Nurse Practitioner; Visit Provider Internal Medicine Gastroenterology
PROC: 0DJ08ZZ Inspection of Upper Intestinal Tract, Via Natural or Artificial Opening Endoscopic (ICD-10-PCS; CPT 43239; principal; 2024-09-29 13:30)
DX: K21.9 Gastro-esophageal reflux disease without esophagitis (principal); R76.8 Other specified abnormal immunological findings in serum; R74.8 Abnormal levels of other serum enzymes; R17 Unspecified jaundice; I11.0 Hypertensive heart disease with heart failure; I50.9 Heart failure, unspecified; F32.A Depression, unspecified; E11.9 Type 2 diabetes mellitus without complications; F43.10 Post-traumatic stress disorder, unspecified; F12.90 Cannabis use, unspecified, uncomplicated; E66.9 Obesity, unspecified; Z68.30 Body mass index [BMI] 30.0-30.9, adult; Z79.82 Long term (current) use of aspirin; Z98.890 Other specified postprocedural states; Z98.84 Bariatric surgery status; Z98.51 Tubal ligation status; Z82.49 Family history of ischemic heart disease and other diseases of the circulatory system
CPT/HCPCS: 43239; 88305; J2704; J7120

== ENCOUNTER 2024-12-13 13:54 | Outpatient (CLI) | payer OTHER, SELFPAY ==
--- NOTE | ~2024-12-13 | US_ITS ---
EXAMINATION: US retroperitoneal comp DATE: 12/13/2024 15:08 INDICATION: Overactive bladder. Urinary tract infection. TECHNIQUE: Multiple ultrasound grayscale images of the kidneys were obtained. COMPARISON: CT abdomen and pelvis 02/08/2014 FINDINGS: The right kidney measures 11.4 x 5.9 x 6.2 cm. The left kidney measures 11.2 x 6.3 x 6.1 cm. The kidneys demonstrate normal parenchymal echogenicity. There is a 2.3 cm cyst in right kidney. There is no hydronephrosis. The bladder is normal. IMPRESSION: 1. Normal kidney sizes. No hydronephrosis. Reviewed, dictated and finalized at location E.
--- OUTSIDE RECORDS SUMMARY | 2024-12-13 16:12 | XMS_ITS | Data Portability ---
Author Organization [facility] Address [address] [place] [address] [place] [address] Care Team Providers Care Editor Managing Newspaper Name Role Phone ROWAN DIEGO Primary Care Provider [phone] Assessment Encounter Date Assessment Date Assessment LastModified by Organization Details LastModified Time 03/16/2024 03/16/2024 Annual gynecological exam performed. Patient will come back in a year unless there are new symptoms. [email or web address] Not available 03/16/2024 12:12:26 05/15/2024 05/15/2024 Annual gynecological exam performed. Patient will come back in a year unless there are new symptoms. [email or web address] Not available 05/15/2024 12:39:50 Plan of Treatment Reminders Order Date Submit Date Provider Last Modified By Organization Details Last Modified Time Details Appointments None recorded. Lab test, urine 2024 025 [facility], [address], [address], [place], [address], 13:52:20 surgical pathology study - ECC 2024 025 [facility] (Lab), [address], [place], [address], 09:48:42 pap, IG + HR HPV - HPV regardless but if HPV is positive need subtyping 16,18/45 Add STI testing to PAP GC/CT/Trich 2024 025 [facility] (Lab), [address], [place], [address], 19:16:19 Referral None recorded. Procedures None recorded. Surgeries None recorded. Imaging US, pelvis 2024 025 [address], [address], [place], [address], 20:59:59 US, transvagina l 2024 [address], [address], [place], [address], 20:59:59 US, pelvis, complete 2024 025 [address], [address], [place], [address], 18:22:59 MAMMO, screening, digital, bilateral [address] [facility], [address], [facility], [place], [address], 15:30:38 Medication Orders nystatin 100,000 unit/gram topical powder 2024 025 [id number], [address], [place], [id number], 14:12:01 Patient TargetsNo targets recorded. Patient InstructionsNo instructions recorded. Reason for Referral None Reported. Results Created Date Observation Date Name Description Value Unit Range Abnormal Flag Note LastModifiedBy Organization Detail LastModifiedTime 03/02/1903/02/2024 [facility] SWAB PLUS, CARLEE bacterial vaginosis (bv), tma Negati ve negati ve Not Available [facility] (Lab) [address], [place], [address], 03/04/2024 14:05:23 03/02/19 25 03/02/2024 [facility] CARLEE harper species, tma Negati ve negati ve Not Available [facility] (Lab) [address] [place], [address], 03/04/2024 14:05:23 03/02/19 25 03/02/2024 [facility], CARLEE harper glabrata, tma Negati ve negati ve Not Available [facility] (Lab) [address] [place], [address], 03/04/2024 14:05:23 03/02/19 25 03/02/2024 [facility], CARLEE trichomonas vaginalis, tma Positi ve negati ve abnormal Not Available [facility] (Lab) [address] [place], [address], 03/04/2024 14:05:23 03/02/19 25 03/02/2024 [facility], CARLEE chlamydia trachomatis, PCR Negati ve negati ve Not Available [facility] (Lab) [address] [place], [address], 03/04/2024 14:05:23 03/02/1903/02/2024 [facility], CARLEE neisseria gonorrhoeae, PCR [...] , C. parap liliya is, C. dubli ni is. Testi ng is perfo rmed using the Trans cript ion Media alice Ampli ficat ion metho d. Tests for Arianna da glabr ray, Trich omona s vagin seng, Chlam ydia trach omati s, and Neiss eria gonor rhoea e are also inclu ded in this panel . Not Available [facility] (Lab) [address] [facility], [place], [address], 03/04/2024 14:05:23 05/16/19 25 05/15/2024 IMAGE GUIDE D PAP AND HPV REGAR DLESS image guided Pap, HPV regardless of Pap result SEE RESULT S BELOW CASE REPOR T: Cytol ogy Gynec ologi chris Repor t Case: [id number] Autho bernie salma Provi shanna: Fariha Gaxiola, ALHAJI Grant cted: 05/15 1329 Order ing Locat ion: [place] Patho logy Recei champ: 05/16 1019 First Luna n: Christie Ruano Specpeace men: Luna head Pap - Image d, Cervi x STATE MENT OF ADEQU ACY: Satis facto ry for evalu ation Trans forma tion zone compo nent absen t ----- ----- ----- ----- ----- ----- ----- ----- ----- ----- ----- ----- ----- ----- ----- ----- ----- ---- FINAL DIAGN OSIS: Negat guanako for Intra epith elial Juan alejandra or Carolyn singer (NIL) . Elect jeramy jackson by Christie lopez on 2024 at 1812 CDT ----- ----- ----- ----- ----- ----- ----- ----- ----- ----- ----- ----- ----- ----- ----- ----- ----- ---- HPV RESUL TS: HPV mRNA E6/E7 : No HPV mRNA Detec alice NOTE: This high risk HPV mRNA assay detec ts fourt een high- risk HPV types (16, 18, 31, 33, 35, 39, 45, 51, 52, 56, 58, 59, 66, 68) witho ut diffe renti ation . COMME NT: This speci men was revie wed by a Cytot echno logis t and/o r Patho logis t (as indic ated in this repor t) after evalu ation using the Thinp rep Imagi ng Syste m. CLINI CHRIS INFOR MATIO N: Menst rual Statu s: LMP (if appli cable ): Clini chris Histo ry/Pr eviou s Pap: Type of Neopl nilay (if appli cable ): Signi fican t Clini chris Findi ngs: Other Histo ry: Hormo edgardo (if appli cable ): PAP EDUCA JOSE FRANCISCO L NOTE: The Pap Test is a scree sonido test with an inher ent false negat guanako rate. Liqui d-bas ed sampl ing may decre ase, but will not elimi rishi, false negat guanako resul ts. A negat guanako resul t does not precl ude the prese nce and/o r devel opmen t of disea se, since the prese nce of abnor mal cells in the sampl e depen ds on the locat ion of the lesio n and sampl ing techn ique. Sandoval nued regul ar scree sonido is the best metho d of cance r preve ntion . If repor alice cytol ogic findi ng do not corre late with physi chris and/o r histo rical findi ngs, furth er inves tigat ion is recom mando d, as clini harvinder penn nted. Not Available [facility] (Lab) [address], [place], [address], 05/18/2024 19:16:19 05/16/19 25 05/15/2024 TRICH OMONA S VAGIN SENG (RRNA ) trichomonas vaginalis ribosomal RNA (rrna) Negati ve negati ve Not Available [facility] (Lab) [address], [place], [address], 05/18/2024 19:16:19 05/16/19 25 05/15/2024 CT/GC ([place]) , THINP REP VIAL chlamydia trachomatis, PCR Negati ve negati ve Not Available [facility] (Lab) [address] [facility], [place], [address], 05/18/2024 19:16:20 05/16/19 25 05/15/2024 CT/GC ([place]) , THINP REP VIAL neisseria gonorrhoeae, PCR Negati ve negati ve Not Available [facility] (Lab) [address] [facility], [place], [address], 05/18/2024 19:16:20 06/09/19 25 06/08/2024 SURGI CHRIS PATHO LOGY surgical pathology SEE RESULT S BELOW CASE REPOR T: Surgi chris Patho logy Repor t Case: [id number] Autho bernie marsh Provi shanna: Fariha Gaxiola NP Colle cted: 06/08 1412 Order ing Locat ion: [place] Patho [place]y Recei champ: 06/09 0246 Patho logis t: Moris Garcia MD Speci men: Endoc ervix , ECC ----- ----- ----- ----- ----- ----- ----- ----- ----- ----- ----- ----- ----- ----- ----- ----- ----- ---- FINAL DIAGN OSIS: Endoc ervix , curet tage: -Amaury gn ectoc ervic al tissu e. -No endoc ervic al tissu e seen. Javi jackson by Moris Garcia MD on 2024 at 0845 CDT ----- ----- ----- ----- ----- ----- ----- ----- ----- ----- ----- ----- ----- ----- ----- ----- ----- ---- YOLANDA NT: The previ ous Pap smear (CDG2 5-280 90) is noted . CLINI CHRIS INFOR MATIO N: Postm enopa usal bleed ing MICRO SCOPI C DESCR IPTIO N: A micro scopi c exami natio n was perfo rmed. GROSS DESCR IPTIO N: A. Endoc ervix . The speci men is label ed with the patie nt's name, demog raphi cs and ECC . Recei champ in forma leyla and on 2 biops y brush es is a less than 0.[address] of minut e white tissu e and mucus . It is submi tted all in one casse tte. Note that tissu e may not survi ve proce ssing . Gross ed by Stefany Abreu on Not Available [facility] (Lab) [address] [facility], [place], [address], 06/10/2024 09:48:42 06/09/19 25 06/08/2024 pregn ghada test, urine HCG negati ve Not Available [facility] [address], [place], [address], 06/08/2024 13:52:14 05/19/19 25 05/18/2024 US, pelvi s No observ ation record ed. [email or web address] [facility] [address], [place], [address], 05/18/2024 13:57:44 05/19/19 25 05/18/2024 US, trans vagin al No observ ation record ed. [email or web address] [facility] [address], [place], [address], 05/18/2024 13:57:59 05/19/19 25 05/18/2024 US, pelvi s No observ ation record ed. [place] [address] [address], [place], [address], 05/24/2024 18:44:27 05/30/19 25 05/25/2024 MAMMO , scree sonido, digit al, bilat eral No observ ation record ed. [address] [place], [address], 06/08/2024 18:22:29 06/07/19 25 05/25/2024 MAMMO , scree sonido, digit al, bilat eral No observ ation record ed. [address] [place], [address], 06/08/2024 18:22:30 Result Notes None recorded. Procedures Surgical History Date Name Laterality Status Provider Name and Address Organization Details Recorded Time 025 Endometrial Biopsy completed MAYE Crook [address], [place], [address], [facility] 06/08/2024 13:49:43 025 Endometrial Biopsy completed Ryann Rosado [facility] 07/31/2024 12:02:38 025 Date of Last Pap Smear completed [facility] 06/08/2024 12:04:53 022 Date of Last Colonoscopy completed [facility] 03/02/2024 12:22:39 994 ligation of fallopian tube completed [facility] 03/02/2024 12:24:36 994 section completed [facility] 03/02/2024 12:28:17 [address] [facility] 03/02/[facility] 12:28:13 990 section completed [facility] 03/02/2024 12:28:06 Gastric bypass for obesity completed [facility] 03/02/2024 12:04:48 Cholecystectomy completed [facility] 03/02/2024 12:25:02 Removal of tonsils completed MAYE Crook [address], [place], [address], [facility] 03/02/2024 12:36:04 Imaging Results None recorded. Procedure Notes None recorded. Medical Equipment None Reported. Allergies Allergen ID Allergen Name Allergen Category Reaction Reaction Severity Criticality Documentation Date Start Date Code Code System Note Provider Name and Address Organization Details Recorded Time 36000 cyclobenz aprine hydrochlo ride medicatio n Not available Not available Not available 03/02/2024 70627 RxNorm [facility] 12:19:55 Medications Name Sig Start Date Stop Date Status Note LastModified by Organization Details LastModified Time losartan 50 mg tablet 07/31 completed Not Available Not Available Not Available carvedilol 12.5 mg tablet active Not Available Not Available Not Available trazodone 50 mg tablet active Not Available Not Available Not Available sertraline 100 mg tablet active Not Available Not Available Not Available metronidazo le 500 mg tablet Take 1 tablet every 12 hours by oral route for 7 days. 07/31 completed Not Available Not Available Not Available sulfamethox azole 800 mg-trimetho prim 160 mg tablet TAKE 1 TABLET BY MOUTH TWICE DAILY 07/31 completed Not Available Not Available Not Available omeprazole 40 mg capsule,del ayed release TAKE 1 CAPSULE BY MOUTH DAILY active Not Available Not Available No t Available aspirin 81 mg tablet,dayan yed release TAKE 1 TABLET BY MOUTH DAILY active Not Available Not Available No t Available spironolact one 25 mg tablet 07/31 completed Not Available Not Available Not Available amlodipine 10 mg tablet TAKE 1 TABLET BY MOUTH EVERY MORNING active Not Available Not Available No t Available furosemide 20 mg tablet 07/31 completed Not Available Not Available Not Available nystatin 100,000 unit/gram topical powder APPLY TO THE AFFECTED AREA(S) BY TOPICAL ROUTE 2 TIMES PER DAY NEEDED 2024 active Not Available Not Available Not Avai lable prazosin 2 mg capsule active Not Available Not Available N ot Available ezetimibe 10 mg tablet active Not Available Not Available Not Available bupropion HCl XL 150 mg 24 hr tablet, extended release TAKE 1 TABLET BY MOUTH EVERY MORNING 07/31 completed Not Available Not Available Not Available dicyclomine active Not Available Not A vailable Not Available BinaxNOW COVID-19 Ag Self Test kit TEST DIRECTED TODAY 07/31 completed Not Available Not Available Not Available Paxlovid 300 mg (150 mg x 2)-100 mg tablets in a dose pack TK 2 NIRMATREL VIR TS AND 1 RITONAVIR T TOGETHER PO TWICE DAILY X 5 DAYS 05/15 completed Not Available Not Available Not Available Vitals Date Recorded Body height Body mass index (BMI) Body weight Systolic And Diastolic Provider Name and Address Organization Details Last Updated DateTime 03/16/2024 152.4 cm 31.4 kg/m2 24514.37 g 131/81 mm[Hg] EVELIO Talavera [facility] 03/16/2024 12:12:57 Date Recorded Body height Body mass index (BMI) Body weight Systolic And Diastolic Provider Name and Address Organization Details Last Updated DateTime 05/15/2024 152.4 cm 32 kg/m2 92721.71 g 122/79 mm[Hg] [facility] 05/15/2024 12:40:27 Date Recorded Body height Body mass index (BMI) Body weight Systolic And Diastolic Provider Name and Address Organization Details Last Updated DateTime 06/08/2024 152.4 cm 32 kg/m2 90292.71 g 168/106 mm[Hg] [facility] 06/08/2024 12:51:52 Date Recorded Body height Body mass index (BMI) Body weight Systolic And Diastolic Provider Name and Address Organization Details Last Updated DateTime 07/31/2024 152.4 cm 31.2 kg/m2 04287.78 g 106/69 mm[Hg] Ryann Alonzo [facility] 07/31/2024 12:00:54 Social History Question Answer Notes LastModified by Organizat ion Details LastModified Time Tobacco Smoking Status Never Smoker EVELIO Talavera gemini, [facility] 03/16/2024 12:13:54 Are You Blind Or Do You Have Difficulty Seeing? No [email or web address] Information n ot available 03/16/2024 What Is Your Level Of Caffeine Consumption? Occasional [email or web address] Information not available 06/08/2024 In The 14 Days Before Symptom Onset, Have You Had Close Contact With A Laboratory-confirm ed COVID-19 While That Case Was Ill? No [email or web address] Information n ot available 03/16/2024 In The 14 Days Before Symptom Onset, Have You Had Close Contact With A Person Who Is Under Investigation For COVID-19 While That Person Was Ill? No [email or web address] Information not available 03/16/2024 Have You Been To An Area Known To Be High Risk For COVID-19? No [email or web address] Information not available 03/16/2024 Are You Deaf Or Do You Have Serious Difficulty Hearing? No [email or web address] Information not available 03/16/2024 What Type Of Diet Are You Following? REGULAR [email or web address] Information n ot available 06/08/2024 What Is The Highest Grade Or Level Of School You Have Completed Or The Highest Degree You Have Received? [id number] [email or web address] Information not available 06/08/2024 Are There Any Guns Present In Your Home? No Information not available 03/16/2024 Do You Use Protection During Sex? Usually [email or web address] Information not available 06/08/2024 Do You Use Your Seat Belt Or Car Seat Routinely? Yes Information not available 06/08/2024 Are You Sexually Active? No [email or web address] Information not available 03/16/2024 Do You Have Smoke And Carbon Monoxide Detectors In Your Home? Yes [email or web address] Information not available 03/16/2024 How Much Tobacco Do You Smoke? 3+ PPD Information not available 06/08/2024 Do You Use Sunscreen Routinely? Yes [email or web address] Information not available 06/08/2024 Has Tobacco Cessation Counseling Been Provided? No Information not available 03/16/2024 Have You Used IV Drugs? No [email or web address] Information not available 06/08/2024 Do You Have Difficulty Walking Or Climbing Stairs? No [email or web address] Information not available 03/16/2024 Sex: Unknown Functional Status Question Answer Note LastModified by Organizat ion Details LastModified Time Do you use any illicit or recreational drugs? No [email or web address] Information not available 03/16/2024 Do you or have you ever used any other forms of tobacco or nicotine? No [email or web address] Information not available 03/16/2024 What is your level of alcohol consumption? None [email or web address] Information not available 06/08/2024 Are you currently employed? No [email or web address] Information not available 03/16/2024 Are you able to walk independently without assistance or assistive devices? YESWOREST [email or web address] Information not available 03/16/2024 Are you able to care for yourself independently? Yes [email or web address] Information not available 03/16/2024 Do you have difficulty dressing, bathing, grooming, or toileting? No Information not available 03/16/2024 What is your exercise level? None [email or web address] Information not available 06/08/2024 Mental Status None recorded. Family History Relationship Description Onset Age of this Age Resolved Age Notes LastModified by Organization Details LastModified Time Father Heart disease [email or web address] Not available 2024 12:06:57 Father Hypercholest erolemia [email or web address] Not available 2024 12:07:17 Father Hypertensive disorder [email or web address] Not available 2024 12:07:33 Mother Hypercholest erolemia [email or web address] Not available 2024 12:07:17 Mother Hypertensive disorder [email or web address] Not available 2024 12:07:33 Mother Disorder of thyroid gland [email or web address] Not available 2024 12:07:50 Medical History Condition Response Allergies (Food, seasonal, environmental ) N Other Y Blood Transfusion N Drug/Latex Allergies/Reactions N Breast Cancer N Dermatologic Disorders N Lung Disease N Defects or Inherited Disease N Breast [...] of LMP On BCP's at Conception? N Was last menstrual period normal Y STIs/STDs N HPV Vaccine N Current Control Method Menopause Age at First Child 19 If Post Menopausal, Age at Menopause 52 Are cycles usually normal Y Date of Last Colonoscopy 03/01/2021 Sexually Active? Y Menses Monthly N Age of first menstrual cycle 12 Date of Last Pap Smear 05/15/2024 Sexual Problems? Y Obstetrics History GPAL:G 3 P 3 0 0 3 Type Value Full Term 3 Living 3 Total 3 Past Encounters Encounter ID Performer Location Encounter Start Date Encounter Closed Date Diagnosis/Indication Diagnosis SNOMED-CT Code Diagnosis ICD10 Code Diagnosis IMO Codes Diagnosis Note [id number] MAYE Crook [facility] [address] [address] 03/02/2024 11:53:56 03/02/2024 14:17:23 Vulval irritation 499429596 N90.89 Health hx obtained and reviewed todayVulva [...] counseling and review of plan of care. [id number] MAYE Crook [facility] [address] [address] 03/16/2024 12:03:52 03/16/2024 13:24:14 Infection by Trichomonas 44217254 A59.9 Discussed (+) trichomona s result with pt and need to complete treatmentm edication has been sent to her pharmacypa rtner needs testing and treatment (PCP or health dept)no IC until both have been treated and its been 10 days since last dose of medication for allRTC for WWE/KALA in 6-8 weekspt to notify PCP of medication regimen d/t medical hxquestion s answered, CDC handout given on trichomona s Time spent in visit is a total of 20 mins with at least 50% of visit consisting of counseling and review of plan of care. [id number] MAYE Crook [facility] [address] [address] 05/15/2024 12:33:30 05/15/2024 15:36:33 Gynecologic examination 34263650 Z01.419 WWEPap - done todaySTI screen - [...] have been answered. Venereal d isease screening 089916508 Z11.3 Screening for malignant neoplasm of breast 590455498 Z12.39 Postmenopa usal bleeding 36642530 N95.0 discussed possible PMB and recommende d updated pelvic u/swill update pt with results when available and discuss next steps/doc mmendation s [id number] Manuel Julian MD [facility] [address] [address] 05/18/2024 10:59:04 05/18/2024 13:31:25 Postmenopausal bleeding 01954956 N95.0 [id number] Fariha SandronikiMAYE [facility] [address] [address] 06/08/2024 11:50:21 06/08/2024 15:06:40 Postmenopausal bleeding 69357201 N95.0 EMB attempted, discontinu ed d/t pt unable to tolerate procedure( procedure technicall y difficult d/t uterine position and stenotic cervix)we agreed to pursue MD consult to decided on hysterosco py D&C vs monitoring for continued PMBquestio ns answered, scheduled to RTC with Dr. Julian Candidiasis of skin 4988 3006 B37.2 rx nystatin powderkeep area clean/dry Bp elevated - asymptomat ic today, pt left prior to repeat BP, called pt and offered to come back for repeat BP. She declined and states she is going to notify her PCP. ED precaution s discussed [id number] Manuel Julian MD [facility] [address] [address] 07/31/2024 11:03:03 07/31/2024 12:33:07 Postmenopausal bleeding 60593073 N95.0 06178 this patient is a 54-year-ol d female postmenopa usal bleeding. She had a failed endometria l biopsy in the office. We have agreed to perform hysterosco py D&C under sedation. She understand s the risks, benefits, and alternativ es. She has completed the informed consent process and is ready to proceed. Health Concerns Section Related Observation LastModified by Organization Detai ls LastModified Time None Recorded Concern Status LastModified by Organization Details LastModified Time None Recorded Advance Directives Directive None Recorded Payers Insurance Date Sequence Insurance Name Policy Number Policy Vela Covered Member ID Vela Member ID Guarantor Name 09/19/2024 1 [facility] - DOS ON OR AFTER 20 (MEDICAID REPLACEMENT - HMO) Marina Coronado [id number] Marina Coronado Notes Date Note Type Note Provider Name and Address Organization Details Recorded Time 5 text/html 53yopresents for WWEwas seen in office 03/02/2024 for vaginal symptoms(+) trichomonas on vaginitis panel done 03/02/2024our office has been attempting to contact pt by phone/portal/letter to discuss results, have been unable to reach her MAYE Crook [address], [place], [address], [facility] 03/16/2024 13:23:11 5 text/html Annual GYNReported by PatientGenitourinary symptomsFor menstrual cycle, patient reportsirregular cycle intervals. For urinary symptoms, patient reportsno hematuriaandno incontinence. For vulva, patient reportsno genital lesion. For vagina, patient reportsnormal vaginal discharge.Breast symptomsFor breast, patient reportsno breast pain,no breast lump, andno nipple discharge.Endocrine symptomsFor sexual complaints, patient reportsno sexual complaints,no pain during intercourse, andnormal libido. For menopausal symptoms, patient reportsno menopausal symptomsandnormal vaginal lubrication.Psychological symptomsFor psychological symptoms, patient reportsno depression,no anxiety, andno pmdd.Preventative measuresFor preventive measures, patient reportsencourage self breast examination,encourage regular exercise,encourage no tobacco use, andencourage regular mammograms starting age [age]yo neal is unsure when her last pap waswent about 12 months without a period, then had light vaginal bleeding for 3-4 days 2 weeks ago.(+) trichomonas 03/02/2024 - completed treatment and symptoms resolved, partner was also treated MAYE Crook [address], [place], [address], [facility] 05/15/2024 15:33:10 5 text/html 54yopresents for EMB for further evaluation of PMB complaining of a rash under pannus that comes and goes MAYE Crook [address], [place], [address], [facility] 06/08/2024 14:53:38 5 text/html this patient is a 54-year-old female postmenopausal bleeding. She had a failed endometrial biopsy in the office. We have agreed to perform hysteroscopy D&C under sedation. She understands the risks, benefits, and alternatives. She has completed the informed consent process and is ready to proceed. The patient understands the procedure. The procedure was described to the patient in great detail. the patient also understands the risks. The risks were also explained in detail. She understands that injuries May occur during surgery. She understands these injuries can result in hospitalization, more surgery, and severe illness. She understands there is risk of hemorrhage and infection. Manuel Julian MD [address], [place], [id number], [facility] 07/31/2024 12:30:47 OBGyn Episode Ob Episode Information Episode Created Date Number of Fetuses Patient Bloodtype Patient rh Status Prepregnancy Weight lbs Domestic Partner Domestic Partner Phone Father Name Air Sealing Technician Status 03/02/19 25 1 CLOSED Fetus Data First Name Last Name Admitted to NICU Weight (g) Sex Living Outcome Pediatric Complications Fetus ID Race Codes Race Delivery Type F Full Term [id number] Repeat Artemio Calculation Initial Artemio Date Initial [...] Domestic Partner Domestic Partner Phone Father Name Air Sealing Technician Status 03/02/19 25 1 CLOSED Fetus Data First Name Last Name Admitted to NICU Weight (g) Sex Living Outcome Pediatric Complications Fetus ID Race Codes Race Delivery Type F Full Term [id number] Primary Artemio Calculation Initial Artemio Date Initial [...] Domestic Partner Domestic Partner Phone Father Name Air Sealing Technician Status 03/02/19 25 1 CLOSED Fetus Data First Name Last Name Admitted to NICU Weight (g) Sex Living Outcome Pediatric Complications Fetus ID Race Codes Race Delivery Type M Full Term 90771 Repeat Artemio Calculation Initial Artemio Date Initial [...]
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
--- OUTSIDE RECORDS SUMMARY | 2024-12-13 16:12 | XMS_ITS | Clinical Summary ---
Author Organization [facility] [employer] Address [address] [place] [address] Care Team Providers Care Belt Loop Maker Name Role Phone Unavailable Primary Care Provider Unavailabl e Source Comments [facility] [employer],non-owned Affiliates and Associated Physician Practices is amultiple site organization consisting of ambulatory clinics and hospital sitesin [place], [place], [place] and [place]. This disclosure is being madepursuant to the Care Everywhere program and may not contain all information available regarding this patient. 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 Gender Identity Not on file Sexual Orientation [...] of 3 - 19+ 3-dose series) 1990 PAP SMEAR 1992 PNEUMOCOCCAL VACCINE 50+ (1 of 1 - PCV) 2021 ZOSTER VACCINE (1 of 2) 2021 DEPRESSION SCREENING 03/01/2024 COVID-19 VACCINE (1 - 2023-2 5 season) 2024 INFLUENZA VACCINE (#1) 2024 04/14/2021 COLON MONITORING [...] patient's age to complete this topic Insurance [facility] SELF PAY NO INSURANCE Member Subscriber Plan / Payer (Ef fective for All Dates) Name:Marge Coronado Member ID:Not on file Relation to Subscriber:Not on file Name:MARGE CORONADO Subscriber ID:Not on file (Home) Address: [address] [place] [address] Payer ID:Not on file Group ID:Not on file Type:Self Pay Address: [place], [place] [facility]
== END 2024-12-13 13:55 | disposition home or self-care (01) ==
PROVIDERS: PCP Family Medicine; Visit Provider Nurse Practitioner Family
DX: N39.0 Urinary tract infection, site not specified (principal); N32.81 Overactive bladder
CPT/HCPCS: 76770

== ENCOUNTER 2024-12-22 13:22 | Outpatient (CLI) | payer OTHER, SELFPAY ==
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
--- OUTSIDE RECORDS SUMMARY | 2024-12-22 13:27 | XMS_ITS | Clinical Summary ---
Author Organization [facility] [employer] Address [address] [place] [address] Care Team Providers Care Group Underwriter Name Role Phone Unavailable Primary Care Provider Unavailabl e Source Comments [facility] [employer],non-owned Affiliates and Associated Physician Practices is amultiple site organization consisting of ambulatory clinics and hospital sitesin [place], [place] and [place]. This disclosure is being madepursuant to the Care Everywhere program and may not contain all information available regarding this patient. 

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
[2024-12-22 15:08] LABS: Add Urine Microscopic? YES; Appearance Urine Cloudy (Clear); Glucose Urine UA Negative (Negative); Leukocyte Esterase Ur Negative LEU/UL (Negative); Nitrate Urine Negative (Negative); Non Pathogenic Casts 0-2; Specific Grav Ur 1.008 (1.001-1.035)
== END 2024-12-22 13:23 | disposition home or self-care (01) ==
PROVIDERS: PCP Family Medicine; Visit Provider Nurse Practitioner Family
DX: N39.0 Urinary tract infection, site not specified (principal); R07.81 Pleurodynia; V19.9XXA Pedal cyclist (driver) (passenger) injured in unspecified traffic accident, initial encounter
CPT/HCPCS: 71046; 81001; 87086

== ENCOUNTER 2025-01-10 15:23 | Outpatient (CLI) | payer OTHER, SELFPAY ==
--- NOTE | ~2025-01-10 | XR_ITS ---
XR lumbar spine 2-3V Indication: LOW BACK PAIN POST FALL Comparison: None Findings: The vertebral heights are intact. No fracture or subluxation. The disc heights are intact. Soft tissues unremarkable Impression: No acute abnormality. Reviewed, dictated and finalized at location P. STRIAL ORDER CLERK Impression: No acute abnormality.
--- OUTSIDE RECORDS SUMMARY | 2025-01-10 15:43 | XMS_ITS | Clinical Summary ---
Author Organization [facility] Address [address] [place] [address] Care Team Providers Care Metalsmith Helper Name Role Phone Khanh Altamirano MD Primary Care Provider [phone] [facility],non-owned Affiliates and Associated Physician Practices is amultiple site organization consisting of ambulatory clinics and hospital sitesin [place], [place], [place] and [place]. This disclosure is being madepursuant to the Care Everywhere program and may not contain all information available regarding this patient. Last updated 17.[facility] Allergies Active Allergy Reactions Criticality Noted Date Comments Cyclobenzaprine Itching 01/02/2025 Lisinopril Cough High 05/04/2012 Medications * This document contains information received from the source organization and may not represent a complete record from that organization. * Be aware that medications may not be up to date on this document. Alwaysverify current medications with the patient. buPROPion XL 24hr (Wellbutrin-XL ) 150 MG tablet Take 1 (one) tablet by mouth once daily 12/23/19 25 Active carvedilol (Coreg) 12.5 MG tablet Take 1 (one) tablet by mouth 2 times daily with morning and evening meal 09/19/19 25 Active traZODone (Desyrel) 50 MG tablet Take 1 (one) tablet by mouth at bedtime 12/23/19 25 Active spironolactone (Aldactone) 25 MG tablet Take 1 (one) tablet by mouth once daily 05/09/19 25 Active omeprazole (PriLOSEC) 40 MG capsule Take 1 (one) capsule by mouth once daily Active nystatin (Mycostatin) 193344 UNIT/GM powder Apply to affected area 2 times daily 06/09/19 25 Active losartan (Cozaar) 50 MG tablet Take 1 (one) tablet by mouth once daily 05/09/19 25 Active ibuprofen (Motrin) 800 MG tablet Take 1 (one) tablet by mouth 4 times daily 12/26/19 25 Active furosemide (Lasix) 20 MG tablet Take 1 (one) tablet by mouth once daily Active ezetimibe (Zetia) 10 MG tablet Take 1 (one) tablet by mouth once daily 09/19/19 25 Active amLODIPine (Norvasc) 10 MG tablet Take 1 (one) tablet by mouth every morning Active vitamin D3 (Cholecalcifer ol) 25 MCG (1000 UNITS) tablet Take 1 (one) tablet by mouth once daily for 60 days 30 tablet 1 01/05/2025 12:08 PM TRAINING AND DEVELOPMENT HEAD 01/07/20 25 026 Active sennosides (Senokot) 8.6 MG tablet Take 1 (one) tablet by mouth once daily as needed for Constipation 14 tablet 01/05/2025 12:08 PM TRAINING AND DEVELOPMENT HEAD 01/06/20 25 Active polyethylene glycol 3350 (Miralax) 17 GM/SCOOP powder Take 17 (seventeen) g by mouth once daily as needed for Constipation 238 g 01/05/2025 12:08 PM TRAINING AND DEVELOPMENT HEAD 01/06/20 25 Active acetaminophen (Tylenol) 500 MG tablet Take 1 (one) tablet by mouth every 6 hours as needed Maximum allowable Acetaminophen amount = 4 Grams (4000 mg) / 24 hours. 01/06/20 25 Active oxyCODONE, immediate release, (Roxicodone) 5 MG tabletIndicati ons:Dog bite, initial encounter,Open fracture of left wrist, initial encounter Take 1 (one) tablet by mouth every 4 hours as needed 12 tablet 01/05/2025 12:08 PM TRAINING AND DEVELOPMENT HEAD 01/06/20 25 Active sulfamethoxazo le-trimethopri m (Bactrim DS; Septra DS) 800-160 MG tabletIndicati ons:Animal Bite Infection Take 1 (one) tablet by mouth 2 times daily for 14 days Reasons: Infected Animal Bite 28 tablet 01/05/2025 12:08 PM TRAINING AND DEVELOPMENT HEAD 01/06/20 25 025 Active HYDROcodone-ac etaminophen (Ellsworth) 5-325 MG tablet Take 1 (one) tablet by mouth 2 times daily 12/26/19 025 Discontin ued(List Clean-Up) escitalopram (Lexapro) 10 MG tablet Take 1 (one) tablet by mouth once daily 09/21/19 025 Discontin ued(List Clean-Up) Active Problems Problem Noted Date Diagnosed Date Trauma 01/03/2025 Assessment & Plan (01/05/2025 10:25 AM TRAINING AND DEVELOPMENT HEAD): -CT cervical spine/ CT head wo cont 01/02/25 No acute intracranial hemorrhage, midline shift, or significant mass effect.No evidence of acute fracture in the cervical spine. -XR LUE 01/02/25 - Mildly displaced fracture of the left ulnar styloid and likely distal radius. -s/p tetanus booster -s/p LUE I&D 01/03 PLAN: - follow up with Orthopedic surgery on discharge -transition ceftriaxone 2 Bactrim discharge for 14 day course - Pain management: Tylenol and oxycodone Assessment & Plan (01/04/2025 11:20 AM TRAINING AND DEVELOPMENT HEAD): -CT cervical spine/ CT head wo cont 01/02/25 No acute intracranial hemorrhage, midline shift, or significant mass effect.No evidence of acute fracture in the cervical spine. -XR LUE 01/02/25 - Mildly displaced fracture of the left ulnar styloid and likely distal radius. -s/p tetanus booster -s/p LUE I&D 01/03 PLAN: - appreciate ortho recommendations -ceftriaxone; likely d/c on bactrim - Pain management: tylenol, oxycodone, hydromorphone - Fall precaution/PT / OT when able to Assessment & Plan (01/03/2025 3:54 AM TRAINING AND DEVELOPMENT HEAD): - Hemodynamically stable, afebrile; CBC/BMP nr; sp -CT cervical spine/ CT head wo cont 01/02/25 No acute intracranial hemorrhage, midline shift, or significant mass effect.No evidence of acute fracture in the cervical spine. -XR LUE 01/02/25 - Mildly displaced fracture of the left ulnar styloid and likely distal radius. - Orthopedic Trauma Surgery was consulted. Patient underwent closed reduction and splinting procedure in ED. -Received tetanus booster/ Abx at [facility]. PLAN: -NPO for now (anticipated in OR in am) -Ancef 2g IV q8h x 3 doses -ok for AC for DVT ppx per ortho - Pain management/supportive care/ NWB LUE/ elevated - Fall precaution/PT / OT when able to -follow vit D-replace if low - Incentive spirometer every 2 hours while awake/oxygen titration protocol -trend UOP/ vitals q4h/ CBC/BMP Dog bite, initial encounter 01/03/2025 Assessment & Plan (01/05/2025 10:25 AM TRAINING AND DEVELOPMENT HEAD): -CT cervical spine/ CT head wo cont 01/02/25 No acute intracranial hemorrhage, midline shift, or significant mass effect.No evidence of acute fracture in the cervical spine. -XR LUE 01/02/25 - Mildly displaced fracture of the left ulnar styloid and likely distal radius. -s/p tetanus booster -s/p LUE I&D 01/03 PLAN: - follow up with Orthopedic surgery on discharge -transition ceftriaxone 2 Bactrim discharge for 14 day course - Pain management: Tylenol and oxycodone Assessment & Plan (01/04/2025 11:20 AM TRAINING AND DEVELOPMENT HEAD): -CT cervical spine/ CT head wo cont 01/02/25 No acute intracranial hemorrhage, midline shift, or significant mass effect.No evidence of acute fracture in the cervical spine. -XR LUE 01/02/25 - Mildly displaced fracture of the left ulnar styloid and likely distal radius. -s/p tetanus booster -s/p LUE I&D 01/03 PLAN: - appreciate ortho recommendations -ceftriaxone; likely d/c on bactrim - Pain management: tylenol, oxycodone, hydromorphone - Fall precaution/PT / OT when able to Assessment & Plan (01/03/2025 3:54 AM TRAINING AND DEVELOPMENT HEAD): - Hemodynamically stable, afebrile; CBC/BMP nr; sp -CT cervical spine/ CT head wo cont 01/02/25 No acute intracranial hemorrhage, midline shift, or significant mass effect.No evidence of acute fracture in the cervical spine. -XR LUE 01/02/25 - Mildly displaced fracture of the left ulnar styloid and likely distal radius. - Orthopedic Trauma Surgery was consulted. Patient underwent closed reduction and splinting procedure in ED. -Received tetanus booster/ Abx at [facility]. PLAN: -NPO for now (anticipated in OR in am) -Ancef 2g IV q8h x 3 doses -ok for AC for DVT ppx per ortho - Pain management/supportive care/ NWB LUE/ elevated - Fall precaution/PT / OT when able to -follow vit D-replace if low - Incentive spirometer every 2 hours while awake/oxygen titration protocol -trend UOP/ vitals q4h/ CBC/BMP Open fracture of left wrist, initial encounter 1 03/05/2024 Assessment & Plan (01/05/2025 10:25 AM TRAINING AND DEVELOPMENT HEAD): -CT cervical spine/ CT head wo cont 01/02/25 No acute intracranial hemorrhage, midline shift, or significant mass effect.No evidence of acute fracture in the cervical spine. -XR LUE 01/02/25 - Mildly displaced fracture of the left ulnar styloid and likely distal radius. -s/p tetanus booster -s/p LUE I&D 01/03 PLAN: - follow up with Orthopedic surgery on discharge -transition ceftriaxone 2 Bactrim discharge for 14 day course - Pain management: Tylenol and oxycodone Assessment & Plan (01/04/2025 11:20 AM TRAINING AND DEVELOPMENT HEAD): -CT cervical spine/ CT head wo cont 01/02/25 No acute intracranial hemorrhage, midline shift, or significant mass effect.No evidence of acute fracture in the cervical spine. -XR LUE 01/02/25 - Mildly displaced fracture of the left ulnar styloid and likely distal radius. -s/p tetanus booster -s/p LUE I&D 01/03 PLAN: - appreciate ortho recommendations -ceftriaxone; likely d/c on bactrim - Pain management: tylenol, oxycodone, hydromorphone - Fall precaution/PT / OT when able to Assessment & Plan (01/03/2025 3:54 AM TRAINING AND DEVELOPMENT HEAD): - Hemodynamically stable, afebrile; CBC/BMP nr; sp -CT cervical spine/ CT head wo cont 01/02/25 No acute intracranial hemorrhage, midline shift, or significant mass effect.No evidence of acute fracture in the cervical spine. -XR LUE 01/02/25 - Mildly displaced fracture of the left ulnar styloid and likely distal radius. - Orthopedic Trauma Surgery was consulted. Patient underwent closed reduction and splinting procedure in ED. -Received tetanus booster/ Abx at [facility]. PLAN: -NPO for now (anticipated in OR in am) -Ancef 2g IV q8h x 3 doses -ok for AC for DVT ppx per ortho - Pain management/supportive care/ NWB LUE/ elevated - Fall precaution/PT / OT when able to -follow vit D-replace if low - Incentive spirometer every 2 hours while awake/oxygen titration protocol -trend UOP/ vitals q4h/ CBC/BMP CHF (congestive heart failure) 01/03/2025 Assessment & Plan (01/05/2025 10:25 AM TRAINING AND DEVELOPMENT HEAD): - CHFpEF ( TTE 08/2022 EF 72%), CAD ( s/p cath/ stent LAD 2022) PLAN: -ASA 81 mg PO d -ezetimibe 10 mg PO d not on formulary -Losartan 50 mg p.o. daily, Coreg 12.5 mg p.o. bid, Spironolactone 25 mg QD -Lasix 20 mg p.o. daily Assessment & Plan (01/04/2025 11:20 AM TRAINING AND DEVELOPMENT HEAD): - CHFpEF ( TTE 08/2022 EF 72%), CAD ( s/p cath/ stent LAD 2022) PLAN: -ASA 81 mg PO d -hold for now -ezetimibe 10 mg PO d not on formulary -Losartan 50 mg p.o. daily, Coreg 12.5 mg p.o. bid, Spironolactone 25 mg QD -hold Lasix 20 mg p.o. daily Assessment & Plan (01/03/2025 3:54 AM TRAINING AND DEVELOPMENT HEAD): - CHFpEF ( TTE 08/2022 EF 72%), CAD ( s/p cath/ stent LAD 2022) PLAN: -obtain 12 lead EKG/ troponin/ NT-ProBNP -cont GDMT : -ASA 81 mg PO d -hold for now -ezetimibe 10 mg PO d -Losartan 50 mg p.o. daily -Coreg 12.5 mg p.o. twice daily -Spironolactone 25 mg p.o. daily -Lasix 20 mg p.o. daily -Daily weight /trend UOP/continuous telemetry Coronary artery disease 01/03/2025 Assessment & Plan (01/05/2025 10:25 AM TRAINING AND DEVELOPMENT HEAD): - CHFpEF ( TTE 08/2022 EF 72%), CAD ( s/p cath/ stent LAD 2022) PLAN: -ASA 81 mg PO d -ezetimibe 10 mg PO d not on formulary -Losartan 50 mg p.o. daily, Coreg 12.5 mg p.o. bid, Spironolactone 25 mg QD -Lasix 20 mg p.o. daily Assessment & Plan (01/04/2025 11:20 AM TRAINING AND DEVELOPMENT HEAD): - CHFpEF ( TTE 08/2022 EF 72%), CAD ( s/p cath/ stent LAD 2022) PLAN: -ASA 81 mg PO d -hold for now -ezetimibe 10 mg PO d not on formulary -Losartan 50 mg p.o. daily, Coreg 12.5 mg p.o. bid, Spironolactone 25 mg QD -hold Lasix 20 mg p.o. daily Assessment & Plan (01/03/2025 3:54 AM TRAINING AND DEVELOPMENT HEAD): - CHFpEF ( TTE 08/2022 EF 72%), CAD ( s/p cath/ stent LAD 2022) PLAN: -obtain 12 lead EKG/ troponin/ NT-ProBNP -cont GDMT : -ASA 81 mg PO d -hold for now -ezetimibe 10 mg PO d -Losartan 50 mg p.o. daily -Coreg 12.5 mg p.o. twice daily -Spironolactone 25 mg p.o. daily -Lasix 20 mg p.o. daily -Daily weight /trend UOP/continuous telemetry Hyperlipidemia 01/03/2025 Assessment & Plan (01/05/2025 10:25 AM TRAINING AND DEVELOPMENT HEAD): - CHFpEF ( TTE 08/2022 EF 72%), CAD ( s/p cath/ stent LAD 2022) PLAN: -ASA 81 mg PO d -ezetimibe 10 mg PO d not on formulary -Losartan 50 mg p.o. daily, Coreg 12.5 mg p.o. bid, Spironolactone 25 mg QD -Lasix 20 mg p.o. daily Assessment & Plan (01/04/2025 11:20 AM TRAINING AND DEVELOPMENT HEAD): - CHFpEF ( TTE 08/2022 EF 72%), CAD ( s/p cath/ stent LAD 2022) PLAN: -ASA 81 mg PO d -hold for now -ezetimibe 10 mg PO d not on formulary -Losartan 50 mg p.o. daily, Coreg 12.5 mg p.o. bid, Spironolactone 25 mg QD -hold Lasix 20 mg p.o. daily Assessment & Plan (01/03/2025 3:54 AM TRAINING AND DEVELOPMENT HEAD): - CHFpEF ( TTE 08/2022 EF 72%), CAD ( s/p cath/ stent LAD 2022) PLAN: -obtain 12 lead EKG/ troponin/ NT-ProBNP -cont GDMT : -ASA 81 mg PO d -hold for now -ezetimibe 10 mg PO d -Losartan 50 mg p.o. daily -Coreg 12.5 mg p.o. twice daily -Spironolactone 25 mg p.o. daily -Lasix 20 mg p.o. daily -Daily weight /trend UOP/continuous telemetry Diabetes 01/03/2025 Assessment & Plan (01/05/2025 10:25 AM TRAINING AND DEVELOPMENT HEAD): -A1c 5.8 -follow up outpatient Assessment & Plan (01/04/2025 11:20 AM TRAINING AND DEVELOPMENT HEAD): -A1c 5.8 -accucheck + SSI Assessment & Plan (01/03/2025 3:54 AM TRAINING AND DEVELOPMENT HEAD): -FSBG q6h w SSL ( while NPO) -Hypoglycemic protocol -A1c Bipolar disorder 01/03/2025 Assessment & Plan (01/05/2025 10:25 AM TRAINING AND DEVELOPMENT HEAD): -Bupropion 150 mg p.o. daily -Trazodone 50 mg p.o. daily as needed Assessment & Plan (01/04/2025 7:42 AM TRAINING AND DEVELOPMENT HEAD): -Bupropion 150 mg p.o. daily -Trazodone 50 mg p.o. daily as needed Assessment & Plan (01/03/2025 3:54 AM TRAINING AND DEVELOPMENT HEAD): -Bupropion 150 mg p.o. daily -Trazodone 50 mg p.o. daily as needed Depression 01/03/2025 Assessment & Plan (01/05/2025 10:25 AM TRAINING AND DEVELOPMENT HEAD): -Bupropion 150 mg p.o. daily -Trazodone 50 mg p.o. daily as needed Assessment & Plan (01/04/2025 7:42 AM TRAINING AND DEVELOPMENT HEAD): -Bupropion 150 mg p.o. daily -Trazodone 50 mg p.o. daily as needed Assessment & Plan (01/03/2025 3:54 AM TRAINING AND DEVELOPMENT HEAD): -Bupropion 150 mg p.o. daily -Trazodone 50 mg p.o. daily as needed Cirrhosis 01/03/2025 Assessment & Plan (01/05/2025 10:25 AM TRAINING AND DEVELOPMENT HEAD): - Compensated cirrhosis (no ascites, encephalopathy, jaundice, or GI bleeding) Cont home: Spironolactone 25 mg p.o. daily Lasix - follow up outpatient Assessment & Plan (01/04/2025 11:20 AM TRAINING AND DEVELOPMENT HEAD): - Compensated cirrhosis (no ascites, encephalopathy, jaundice, or GI bleeding), MELD Na score 11, Child -Mcgowan score A Cont home: Spironolactone 25 mg p.o. daily - hold Lasix 20 mg p.o. daily -Referral outpatient follow-up- Assessment & Plan (01/03/2025 3:54 AM TRAINING AND DEVELOPMENT HEAD): - Compensated cirrhosis (no ascites, encephalopathy, jaundice, or GI bleeding), MELD Na score 11, Child -Mcgowan score A Cont home : -Coreg 12.5 mg p.o. twice daily -Spironolactone 25 mg p.o. daily -Lasix 20 mg p.o. daily -trend PT-INR/ CBC/ BMP/ UA lytes -Referral outpatient follow-up- Encounters Date Type Department Care Team Description 01/03/2025 12:50 PM TRAINING AND DEVELOPMENT HEAD Anesthesia Event [facility] [address] [place] [address] Poncho Abdul II, MD Staheli, Jonathan, DO 01/03/2025 12:44 PM TRAINING AND DEVELOPMENT HEAD - 01/03/2025 2:14 PM TRAINING AND DEVELOPMENT HEAD Surgery [facility] [address] [place] [id number] Krystin Martin MD IRRIGATION AND DEBRIDEMENT LEFT FOREARM 01/02/2025 5:43 PM TRAINING AND DEVELOPMENT HEAD - 01/05/2025 1:47 PM TRAINING AND DEVELOPMENT HEAD Hospital Encounter [facility] [address] [place] [address] Jose Posada MD El Sharkh, Hadil, MD Arshad, Iqra, MD Chinnery, Akrin, MD Emergency Medicine Discharge Disposition: Home or Self Care 01/02/2025 Travel from Last 3 Months Social History Tobacco Use Types Packs/Day Years Used Date Smoking Tobacco: Never Smokeless Tobacco: Never Tobacco Cessation:Counseling Given: Not Answered Alcohol Use Standard Drinks/Week Comments Yes 0 (1 standard drink = 0.6 oz pur e alcohol) AUDIT-C Answer Date Recorded Q1: How often do you have a drink containing alcohol? 4 or more times a week 01/02/2025 Q2: How many drinks containi ng alcohol do you have on a typical day when you are drinking? Patient declined Q3: How often do you have si x or more drinks on one occasion? Patient declined 01/02/2025 Overall Financial Resource Strain (CARDIA) Answe r Date Recorded How hard is it for you to pa y for the very basics like food, housing, medical care, and heating? Somewhat hard 01/03/2025 [facility] [place] [facility] - Occupational Stress Questionnaire Answer Date Recorded Do you feel stress - tense, restless, nervous, or anxious, or unable to sleep at night because your mind is troubled all the time - these days? Very much 01/03/2025 Hunger Vital Sign Answer Date Recorded Within the past 12 months, y ou worried that your food would run out before you got the money to buy more. Sometimes true Within the past 12 months, t he food you bought just didn't last and you didn't have money to get more. Sometimes true 06/2024 PRAPARE - Transportation Answer Date Re corded In the past 12 months, has l ack of transportation kept you from medical appointments or from getting medications? No 06/2024 In the past 12 months, has l ack of transportation kept you from meetings, work, or from getting things needed for daily living? No 01/03/2025 Housing Stability Vital Sign Answer Oswaldo e Recorded In the last 12 months, was t here a time when you were not able to pay the mortgage or rent on time? Yes 01/03/2025 In the past 12 months, how m any times have you moved where you were living? 0 01/03/2025 At any time in the past 12 m [facility], were you homeless or living in a usp (including now)? No 01/03/2025 Comments No Sex and Gender Information Value Date Recorded Sex Assigned at Not on file Legal Sex Female 6:23 PM TRAINING AND DEVELOPMENT HEAD Gender Identity Not on file Sexual Orientation Not on file Last Filed Vital Signs Vital Sign Reading Time Taken Comments Blood Pressure 123/77 01/05/2025 6:35 AM TRAINING AND DEVELOPMENT HEAD Pulse 70 01/05/2025 6:35 AM TRAINING AND DEVELOPMENT HEAD Temperature 36.9 C (98.4 F) 01/05/2025 6:35 AM TRAINING AND DEVELOPMENT HEAD Respiratory Rate 18 01/05/2025 6:35 AM TRAINING AND DEVELOPMENT HEAD Oxygen Saturation 96% 01/05/2025 6:35 AM TRAINING AND DEVELOPMENT HEAD Inhaled Oxygen Concentration 40% 01/03/2025 3 :05 PM TRAINING AND DEVELOPMENT HEAD Weight 70.9 kg (156 lb 3.2 oz) 01/05/2025 6:35 A M TRAINING AND DEVELOPMENT HEAD Height 152.4 cm (5') 01/03/2025 4:26 PM TRAINING AND DEVELOPMENT HEAD Body Mass Index 30.51 01/03/2025 4:26 PM TRAINING AND DEVELOPMENT HEAD Plan of Treatment Upcoming Encounters Date Type Department Care Team (Late st Contact Info) Description 01/19/2025 9:00 AM TRAINING AND DEVELOPMENT HEAD Office Visit [facility] - Orthopedic Surgery [address] [place] [id number] Krystin Martin MD [address] [place] [id number] Health Maintenance Due Date Last Done Comments COLOGUARD (AGES 45-75) - COLON CA SCREENING 1971 CT COLONOGRAPHY - COLON CA SCREENING 1971 FIT - COLON CA SCREENING 1971 FLEX SIG - COLON CA SCREENING 1971 MAMMOGRAM 1971 HIV SCREENING 1986 HEPATITIS C SCREENING 03/29/1989 DTAP/TDAP/TD VACCINES (1 - Tdap) 1990 HEPATITIS B VACCINE (1 of 3 - 19+ 3-dose series) 1990 PNEUMOCOCCAL VACCINE 50+ (1 of 2 - PCV) 1990 PAP SMEAR 1992 ZZRETIRED DIABETES-STATIN 2011 ZOSTER VACCINE (1 of 2) 2021 DIABETES - URINE PROTEIN SCREENING 03/01/2024 COVID-19 VACCINE (1 - season) 2024 INFLUENZA VACCINE (#1) 2024 2, 01/07/2012, 12/10/2010, Additional history exists DIABETES RETINOPATHY SCREENING 01/03/2025 DIABETES-FOOT EXAM WITH MONOFILAMENT 01/03/2025 DIABETES-HGB A1C 07/03/2025 01/03/2025 DIABETES-SERUM CREATININE 01/04/20262024, 01/03/2025, 01/02/2025 COLON MONITORING 04/17/2031 04/17/2021 COLONOSCOPY - COLON CA SCREENING 04/17/2031 04/17/2021 Colorectal Cancer Screening 04/17/2031 HIB VACCINE Aged Out No longer eligi ble based on patient's age to complete this topic HPV VACCINE Aged Out No longer eligi ble based on patient's age to complete this topic MENINGOCOCCAL (Group B) VACCINE SHARED DECISION-MAKING Aged Out No longer eligible based on patient's age to complete this topic MENINGOCOCCAL GROUPS A/C/Y/W VACCINE Aged Out No longer eligible based on patient's age to complete this topic Procedures Procedure Name Priority Date/Time Associated Diagnosis Comments GLUCOSE - POINT OF CARE Routine 01/05/2025 12:24 PM TRAINING AND DEVELOPMENT HEAD GLUCOSE - POINT OF CARE Routine 01/05/2025 7:31 AM TRAINING AND DEVELOPMENT HEAD GLUCOSE - POINT OF CARE Routine 01/04/2025 5:16 PM TRAINING AND DEVELOPMENT HEAD GLUCOSE - POINT OF CARE Routine 01/04/2025 11:59 AM TRAINING AND DEVELOPMENT HEAD GLUCOSE - POINT OF CARE Routine 01/04/2025 7:51 AM TRAINING AND DEVELOPMENT HEAD LYTES (NA K) URINE RANDOM PANEL STAT 01/04/2025 6:01 AM TRAINING AND DEVELOPMENT HEAD URINE DRUG SCREEN IMMUNOASSAY STAT 01/04/2025 6:01 AM TRAINING AND DEVELOPMENT HEAD PHOSPHORUS BLOOD Routine 01/04/2025 5:37 AM TRAINING AND DEVELOPMENT HEAD MAGNESIUM BLOOD Routine 01/04/2025 5:37 AM TRAINING AND DEVELOPMENT HEAD BASIC METABOLIC PANEL (CALCIUM TOTAL) AM Draw 01/04/2025 5:37 AM TRAINING AND DEVELOPMENT HEAD CBC W AUTO DIFFERENTIAL AM Draw 01/04/2025 5:37 AM TRAINING AND DEVELOPMENT HEAD GLUCOSE - POINT OF CARE Routine 01/04/2025 5:13 AM TRAINING AND DEVELOPMENT HEAD OT EVAL AND TREAT Routine 01/04/2025 5:0 0 AM TRAINING AND DEVELOPMENT HEAD PT EVAL AND TREAT Routine 01/04/2025 5:0 0 AM TRAINING AND DEVELOPMENT HEAD GLUCOSE - POINT OF CARE Routine 01/03/2025 11:39 PM TRAINING AND DEVELOPMENT HEAD GLUCOSE - POINT OF CARE Routine 01/03/2025 4:47 PM TRAINING AND DEVELOPMENT HEAD LARYNGEAL MASK AIRWAY Routine 01/03/2025 1:24 PM TRAINING AND DEVELOPMENT HEAD AK MROIAH BONE 20 SQ CM/< 01/03/2025 12:54 PM TRAINING AND DEVELOPMENT HEAD Type I or II open fracture of proximal end of left radius, unspecified fracture morphology, initial encounter GLUCOSE - POINT OF CARE Routine 01/03/2025 8:28 AM TRAINING AND DEVELOPMENT HEAD VITAMIN D 25-HYDROXY SUNDEEP 01/03/2025 6:06 AM TRAINING AND DEVELOPMENT HEAD TROPONIN-I HIGH SENSITIVE STAT 01/03/2025 3:35 AM TRAINING AND DEVELOPMENT HEAD HEMOGLOBIN A1C SUNDEEP 01/03/2025 3:35 AM TRAINING AND DEVELOPMENT HEAD NT-PRO BNP STAT 01/03/2025 3:35 AM TRAINING AND DEVELOPMENT HEAD PHOSPHORUS BLOOD STAT 01/03/2025 3:35 AM TRAINING AND DEVELOPMENT HEAD MAGNESIUM BLOOD STAT 01/03/2025 3:35 AM TRAINING AND DEVELOPMENT HEAD CBC W/O DIFFERENTIAL STAT 01/03/2025 3:35 AM TRAINING AND DEVELOPMENT HEAD BASIC METABOLIC PANEL (CALCIUM TOTAL) STAT 01/03/2025 3:35 AM TRAINING AND DEVELOPMENT HEAD LACTIC ACID BLOOD STAT 01/03/2025 3:3 5 AM TRAINING AND DEVELOPMENT HEAD BLOOD TYPE VERIFICATION STAT 01/03/2025 3:34 AM TRAINING AND DEVELOPMENT HEAD PT-INR STAT 01/03/2025 3:30 AM TRAINING AND DEVELOPMENT HEAD EKG 12-LEAD STAT 01/03/2025 3:22 AM TRAINING AND DEVELOPMENT HEAD Trauma Dog bite, initial encounter Open fracture of left wrist, initial encounter Type 2 diabetes mellitus without complication in remission CT CERVICAL SPINE WO CONTRAST STAT 01/02/2025 9:11 PM TRAINING AND DEVELOPMENT HEAD Trauma CT HEAD WO CONTRAST STAT 01/02/2025 9 :11 PM TRAINING AND DEVELOPMENT HEAD Trauma XR ANKLE RIGHT 3VW OR MORE STAT 01/02/2025 7:25 PM TRAINING AND DEVELOPMENT HEAD Trauma XR ANKLE LEFT 3VW OR MORE STAT 01/02/2025 7:25 PM TRAINING AND DEVELOPMENT HEAD Trauma XR HUMERUS LEFT 2VW OR MORE STAT 01/02/2025 7:25 PM TRAINING AND DEVELOPMENT HEAD Trauma XR ELBOW LEFT 3VW OR MORE STAT 01/02/2025 7:24 PM TRAINING AND DEVELOPMENT HEAD Trauma XR SHOULDER LEFT 2VW OR MORE STAT 01/02/2025 7:24 PM TRAINING AND DEVELOPMENT HEAD Trauma XR HAND LEFT 3VW OR MORE STAT 01/02/2025 7:24 PM [facility] Trauma XR WRIST LEFT 3VW OR MORE STAT 01/02/2025 7:24 PM [facility] Trauma XR FOREARM LEFT 2VW OR MORE STAT 01/02/2025 7:22 PM [facility] Trauma TYPE + SCREEN PANEL STAT 01/02/2025 6 :32 PM [facility] COMPREHENSIVE METABOLIC PANEL STAT 01/02/2025 6:32 PM [facility] CBC W AUTO DIFFERENTIAL STAT 01/02/2025 6:32 PM [facility]ELOP[facility] from Last 3 Months Results * (ABNORMAL) GLUCOSE - POINT OF CARE (01/05/2025 12:24 PM [facility]) Only the most recent of9 resultswithin the time period is included. Glucose WB/POC 222(H) 70 - 99 mg/dL 01/05/2025 12:25 PM [facility] DEVELOPMENT HEAD [facility] Specimen Type Arterial/C apillary 01/05/2025 12:25 PM [facility] DEVELOP[facility] Blood BLOOD SPECIMEN / Unknown 01/05/2025 12:24 PM [facility] 01/05/2025 12:25 PM [facility] Gopal Jasso MD LAB - POINT OF CARE ORDERABLES Final Result [facility] [address] [place] [address], [facility] [phone] * (ABNORMAL) URINE DRUG SCREEN IMMUNOASSAY (01/04/2025 6:01 AM [facility]) Pathologist [facility] Amphetamines Screen Urine Positive(A) Negative : < 1000 ng/mL 01/04/2025 7:16 AM [facility] Comment: Positive urine amphetamine screening results should be confirmed by another generally accepted non-immunological method such as gas chromatography or mass spectrometry. Barbiturates Screen Urine Negative Negative : < 200 ng/mL 01/04/2025 7:16 AM [facility] Benzodiazepine Screen Urine Negative Negative : < 200 ng/mL 01/04/2025 7:16 AM [facility] Opiates Urine Positive(A) Negative : < 300 ng/mL 01/04/2025 7:16 AM [facility] Comment:Positive urine opiat e screening results should be confirmed by another generally accepted non-immunological method such as gas chromatography or mass spectrometry. Cocaine Metabolites Urine Negative Negative : < 300 ng/mL 01/04/2025 7:16 AM [facility] Phencyclidine Screen Urine Negative Negative : < 25 ng/ml 01/04/2025 7:16 AM [facility] Cannabinoids Screen Urine Negative Negative : <50 ng/mL 01/04/2025 7:16 AM [facility] Methadone Screen Urine Negative Negative : < 300 ng/mL 01/04/2025 7:16 AM [facility] Fentanyl Screen Urine Positive(A) Negative : <1.5 ng/mL 01/04/2025 7:16 AM [facility] Comment:Positive urine fenta nyl screening results should be confirmed by another generally accepted non-immunological method such as gas chromatography or mass spectrometry. Urine URINE / Unknown Collection / Unknown 01/04/2025 6:01 AM [facility] 01/04/2025 6:52 AM [facility] Narrative [facility] - 01/04/2025 7:16 AM [facility] DEVELOP[facility] The Urine Toxicology Screening Panel does not screen for Propoxyphene, Meprobamate, Carisoprodol, Trazodone, [id number]-awicmxu medications and/or volatiles (Acetone, Isopropanol, Methanol or Ethylene Glycol). Ethanol, Salicylate, Acetaminophen, Tricyclic Antidepressants and several therapeutic drugs may be individually assayed in serum or plasma specimen. Toxicology testing by the [facility] is an aid to medical diagnosis and treatment of patients. No documented chain of custody was maintained. Results are intended to be used for clinical purposes only. Jeniffer Goldstein [facility] - URINE CHEMISTRY OR DERABLES Final Result Performing Organization Address City/[facility]/ZIP Co de Phone Number [address] [address], [facility] [phone] * LYTES (NA K) URINE RANDOM PANEL (01/04/2025 6:01 AM [facility]) Sodium Urine 64 Not Established mmol/L 01/04/2025 7:10 AM [facility] Potassium Urine 47.4 Not Established mmol/L 01/04/2025 7:10 AM [facility] Urine URINE SPECIMEN OBTAINED BY CLEAN CATCH PROCEDURE / Unknown Collection / Unknown 01/04/2025 6:01 AM [facility] 01/04/2025 6:52 AM [facility] Jeniffer Goldstein [facility] - URINE CHEMISTRY OR DERABLES Final Result [address] [address], [place] [phone] * (ABNORMAL) CBC W AUTO DIFFERENTIAL (01/04/2025 5:37 AM [facility]) Only the most recent of2 resultswithin the time period is included. WBC 7.2 4.0 - 10.7 x10E9/L 01/04/2025 7:29 AM [facility] RBC Count 3.73(L) 3.90 - 5.20 x10E12/L 01/04/2025 7:29 AM [facility] Hemoglobin 10.9(L) 11.9 - 15.8 g/dL 01/04/2025 7:29 AM [facility] Hematocrit 32.9(L) 34.8 - 46.1 % 01/04/2025 7:29 AM [facility] MCV 88.2 80.0 - 98.0 fL 01/04/2025 7:29 AM [facility] MCH 29.2 26.7 - 33.6 pg 01/04/2025 7:29 AM [facility] MCHC 33.1 31.7 - 36.3 g/dL 01/04/2025 7:29 AM [facility] RDW-CV 13.4 11.3 - 14.8 % 01/04/2025 7:29 AM [facility] Platelet Count 189 150 - 420 x10E9/L 01/04/2025 7:29 AM [facility] MPV 11.2 7.8 - 11.4 fL 01/04/2025 7:29 AM [facility] Neutrophil % 77.7(H) 41.0 - 74.0 % 01/04/2025 7:29 AM [facility] Lymphocyte % 13.2(L) 17.0 - 47.0 % 01/04/2025 7:29 AM [facility] Monocyte % 8.7 3.0 - 11.0 % 01/04/2025 7:29 AM [facility] Eosinophil % 0.0 0.0 - 7.0 % 01/04/2025 7:29 AM [facility] Basophil % 0.3 0.0 - 1.6 % 01/04/2025 7:29 AM [facility] Immature Granulocytes % 0.1 0.0 - 1.0 % 01/04/2025 7:29 AM [facility] Neutrophil Absolute 5.61 1.60 - 7.50 x10E9/L 01/04/2025 7:29 AM [facility] Lymphocyte Absolute 0.95(L) 1.00 - 4.40 x10E9/L 01/04/2025 7:29 AM [facility] Monocyte Absolute 0.63 0.15 - 1.00 x10E9/L 01/04/2025 7:29 AM [facility] Eosinophil Absolute 0.00 0.00 - 0.60 x10E9/L 01/04/2025 7:29 AM [facility] Basophil Absolute 0.02 0.00 - 0.13 x10E9/L 01/04/2025 7:29 AM [facility] Blood BLOOD SPECIMEN / Unknown Lab Venipuncture / Unknown 01/04/2025 5:37 AM [facility] 01/04/2025 7:03 AM [facility] us Ashlee Coy MD LAB - HEMATOLOGY ORDERABLES Lisa castro Result [id number] [place] [address], [facility] [phone] * (ABNORMAL) BASIC METABOLIC PANEL (CALCIUM TOTAL) (01/04/2025 5:37 AM [facility]) Only the most recent of2 resultswithin the time period is included. BUN 7 7 - 26 mg/dL 01/04/2025 7:37 AM [facility] Creatinine 0.53(L) 0.56 - 0.96 mg/dL 01/04/2025 7:37 AM [facility] Sodium 139 136 - 145 mmol/L 01/04/2025 7:37 AM [facility] Potassium 4.1 3.5 - 4.5 mmol/L 01/04/2025 7:37 AM [facility] Chloride 105 98 - 107 mmol/L 01/04/2025 7:37 AM [facility] CO2 24 22 - 29 mmol/L 01/04/2025 7:37 AM [facility] Glucose 147(H) 70 - 99 mg/dL 01/04/2025 7:37 AM [facility] Calcium 8.9 8.4 - 10.2 mg/dL 01/04/2025 7:37 AM [facility] Anion Gap 10 6 - 16 01/04/2025 7:37 AM [facility] BUN/Creatinine Ratio 13 7 - 23 01/04/2025 7:37 AM [facility] Osmolality Calculated 289 275 - 295 mOsm/kg 01/04/2025 7:37 AM [facility] eGFR by CKD-EPI >90 >=90 mL/min/1.7 3 m2 01/04/2025 7:37 AM [facility] Comment:Estimated Glomerular Filtration Rate (eGFR) calculated using the CKD-EPI Creatinine Equation (2020), per the National Kidney Foundation and [place] Society of Nephrology recommendations. Blood BLOOD SPECIMEN / Unknown Lab Venipuncture / Unknown 01/04/2025 5:37 AM [facility] 01/04/2025 6:53 AM [facility] Ashlee Coy MD LAB - CHEMISTRY ORDERABLES Final Result [address] [address], [facility] [phone] * PHOSPHORUS BLOOD (01/04/2025 5:37 AM [facility]) Only the most recent of2 resultswithin the time period is included. Phosphorus 3.4 2.9 - 5.1 mg/dL 01/04/2025 7:37 AM [facility] Blood BLOOD SPECIMEN / Unknown Lab Venipuncture / Unknown 01/04/2025 5:37 AM [facility] 01/04/2025 6:53 AM [facility] us Ashlee Coy MD LAB - CHEMISTRY ORDERABLES Final Result [address] [address], [place] [phone] * MAGNESIUM BLOOD (01/04/2025 5:37 AM [facility]) Only the most recent of2 resultswithin the time period is included. Magnesium 1.8 1.6 - 2.6 mg/dL 01/04/2025 7:37 AM [facility] Blood BLOOD SPECIMEN / Unknown Lab Venipuncture / Unknown 01/04/2025 5:37 AM [facility] 01/04/2025 6:53 AM [facility] Result [facility] Ashlee Coy MD LAB - CHEMISTRY ORDERABLES Final Result [facility] [address] [place] [address], [facility] [phone] * LARYNGEAL MASK AIRWAY (01/03/2025 1:24 PM [facility]ELOP[facility]) Narrative Poncho Abdul II, MD - 01/03/2025 1:24 PM [facility] DEVELOP[facility] HEAD Poncho Abdul II, MD 01/04/2025 8:56 AM LMA Placement Procedure/LDA Note: Patient Location: OR. LMA Insertion Date/Time: 01/03/2025 1:05 PM Procedure: LMA Pretreatment: 100% O2 Induction: standard IV Patient position: sniffing and supine. Mask Ventilation: easy Type: LMA Size: 4 Number of Attempts: 1. Placement verified by: CO2 monitor, bilateral breath sounds and chest auscultation Dentition unchanged? Yes Procedure Start Time: 01/03/2025 1:05 PM. Staff Section Anesthesia Provider: Darius Thayer CAA, Performed the procedure Result [facility] Poncho Abdul II, MD GENERAL ANESTHESIA ORDERABL ES Edited Result - Final * (ABNORMAL) VITAMIN D 25-HYDROXY (01/03/2025 6:06 AM [facility]) Vitamin D, 25 Hydroxy 25.4(L) 30.0 - 80.0 ng/mL 01/03/2025 6:48 AM [facility] DEVELOPMENT HEAD [facility] Comment: The recommendations for 25-Hydroxy Vitamin D clinical decision points are as follows: Deficient: <20.0 ng/mL Insufficient: 20.0 - 29.9 ng/mL Sufficient: 30.0 - 100.0 ng/mL Potential Toxicity: >100 ng/mL Reference: The Endocrine Society Clinical Practice Guidelines. 2011 If the 25-Hydroxy Vitamin D results are inconsitent with clinical evidence, it is recommended that follow-up testing using a method such as LC/MS/MS be performed to confirm the result. Blood BLOOD SPECIMEN / Unknown Lab Venipuncture / Unknown 01/03/2025 6:06 AM [facility] 01/03/2025 6:11 AM [facility]ELOP[facility] HEAD Result [facility] Jeniffer Goldstein [facility] LAB - CHEMISTRY ORDERABL ES Final Result Performing Organization Address City/[facility]/ZIP Co de Phone Number [address] [address], [facility] [phone] * TROPONIN-I HIGH SENSITIVE (01/03/2025 3:35 AM [facility]) Troponin I High Sensitive 9 <=14 ng/L 01/03/2025 4:12 AM [facility] DEVELOPMENT HEAD [facility] Blood BLOOD SPECIMEN / Unknown Venipuncture / Unknown 01/03/2025 3:35 AM [facility] 01/03/2025 3:43 AM [facility]EL[facility] Jeniffer Goldstein [facility] LAB - CHEMISTRY ORDERABL ES Final Result Performing Organization Address [facility] Co de Phone Number [address] [address], [facility] [phone] * NT-PRO BNP (01/03/2025 3:35 AM [facility]) NT-proBNP 145.0 <900.0 pg/mL 01/03/2025 4:12 AM [facility] DEVELOPMENT HEAD [facility] Blood BLOOD SPECIMEN / Unknown Venipuncture / Unknown 01/03/2025 3:35 AM [facility] 01/03/2025 3:43 AM [facility]ELOP[facility] HEAD Narrative [facility] - 01/03/2025 4:12 AM [facility] DEVELOPMENT [facility] NT-pro-BNP values below 300 pg/mL, for individuals 18 or above, have a 99% negative predictive value for excluding acute congestive heart failure (CHF). In patients with eGFR less than 60 mL/min/1.73 m2, caution should be used when interpreting NT-pro-BNP results. Results should be assessed in conjunction with the patient s medical history, clinical examination, and other findings. NT-pro-BNP is measured on the Growish analyzer using chemiluminescent microparticle immunoassay (CMIA) technology. Jeniffer Goldstein [facility]ION REPRESENTATIVEFA[facility] LAB - CHEMISTRY ORDERABL ES Final Result Performing Organization Address City/[facility]/ZIP Co de Phone Number [address] [address], [facility] [phone] * (ABNORMAL) HEMOGLOBIN A1C (01/03/2025 3:35 AM [facility] DEVELOP[facility]) [facility] Hemoglobin A1c 5.8(H) <=5.6 % 01/03/2025 12:32 PM [facility] Estimated Average Glucose 120 mg/dL 01/03/2025 12:32 PM [facility] Comment: HbA1c Interpretation: Normal : < 5.7% Pre-diabetes: 5.7-6.4% Diabetes: Equal to or greater than 6.5% Test results diagnostic of diabetes should be repeated for confirmation. Treatment target values recommended by ADA and other clinical organizations should be used to evaluate metabolic control in patients. Reference: [place] Diabetes Association, Standards of Care in Diabetes -2020 In patients 70 years and older consider HbA1c target range of 7.0-7.5% (Reference: Milton Mcrae et al. JAMDA. 2012) The Sebia assay for the measurement of HbA1c is a National Glycohemoglobin Standardization Program (NGSP) certified method. Blood BLOOD SPECIMEN / Unknown Venipuncture / Unknown 01/03/2025 3:35 AM [facility] 01/03/2025 3:43 AM [facility] Jeniffer Goldstein APRN-COMPENSATION ADJUSTER LAB - CHEMISTRY ORDERABL ES Final Result [facility] [address] [place] [address], [facility] [phone] * (ABNORMAL) CBC W/O DIFFERENTIAL (01/03/2025 3:35 AM [facility]ELOP[facility]) [facility] WBC 8.3 4.0 - 10.7 x10E9/L 01/03/2025 3:48 AM [facility] RBC Count 3.97 3.90 - 5.20 x10E12/L 01/03/2025 3:48 AM [facility] Hemoglobin 11.9 11.9 - 15.8 g/dL 01/03/2025 3:48 AM [facility] Hematocrit 34.4(L) 34.8 - 46.1 % 01/03/2025 3:48 AM [facility] MCV 86.6 80.0 - 98.0 fL 01/03/2025 3:48 AM [facility] MCH 30.0 26.7 - 33.6 pg 01/03/2025 3:48 AM [facility] MCHC 34.6 31.7 - 36.3 g/dL 01/03/2025 3:48 AM [facility] RDW-CV 13.0 11.3 - 14.8 % 01/03/2025 3:48 AM [facility] Platelet Count 187 150 - 420 x10E9/L 01/03/2025 3:48 AM [facility] MPV 10.4 7.8 - 11.4 fL 01/03/2025 3:48 AM [facility] Blood BLOOD SPECIMEN / Unknown Venipuncture / Unknown 01/03/2025 3:35 AM [facility] 01/03/2025 3:43 AM [facility] Jeniffer BELCHER LAB - HEMATOLOGY ORDERAB LES Final Result [address] [address], [facility] [phone] * LACTIC ACID BLOOD (01/03/2025 3:35 AM [facility] DEVELOPMENT [facility]) Lactic Acid-Stat 1.5 <=2.0 mmol/L 01/03/2025 4:05 AM [facility] Blood BLOOD SPECIMEN / Unknown Venipuncture / Unknown 01/03/2025 3:35 AM [facility] 01/03/2025 3:43 AM [facility] Jeniffer BELCHER LAB - CHEMISTRY ORDERABL ES Final Result [address] [address], [facility] [phone] * BLOOD TYPE VERIFICATION (01/03/2025 3:34 AM [facility] DEVELOPMENT HEAD) ABO Rh O POS 01/03/2025 4:1 5 AM [facility] Blood Bank BLOOD SPECIMEN / Unknown Venipuncture / Unknown 01/03/2025 3:34 AM [facility]ELOP[facility] HEAD 01/03/2025 3:41 AM [facility] DEVELOPMENT HEAD Jose Posada MD LAB - BLOOD BANK ORDERABLES Lisa l Result Performing Organization Address [facility]/ZIP Co de Phone Number [facility] [address] [place] [address], [facility] [phone] * PT-INR (01/03/2025 3:30 AM TRAINING AND DEVELOPMENT HEAD) Pathologist [facility] PT 13.2 12.1 - 14.8 Seconds 01/03/2025 4:19 AM TRAINING AND DEVELOPMENT HEAD [facility] INR 1.0 See Comment 01/03/2025 4:19 AM TRAINING AND DEVELOPMENT HEAD [facility] Comment:The suggested therap eutic range for standard coumadin (warfarin) therapy is an INR of 2.0-3.0. For high-risk patients (Mechanical Mitral Valve Prosthesis, etc.), the suggested prophylactic therapeutic range is an INR of 2.5-3.5. Blood BLOOD SPECIMEN / Unknown Venipuncture / Unknown 01/03/2025 3:30 AM [facility] DEVELOPMENT HEAD 01/03/2025 3:51 AM [facility]EL[facility] Jeniffer Goldstein APRN-COMPENSATION ADJUSTER LAB - COAGULATION ORDERA BLES Final Result Performing Organization Address [facility]/ZIP Co de Phone Number [facility] [address] [place] [address], [facility] [phone] * EKG 12-LEAD (01/03/2025 3:22 AM [facility]ING [facility] DEVELOPMENT HEAD) Ventricular Rate 88 BPM [facility] MUSE Atrial Rate 88 BPM [facility] P-R Interval 174 ms [facility] QRS Duration ms 100 ms [facility] Q-T Interval ms 408 ms [facility] QTC Calculation (Bezet) 493 ms SL MUSE Calculated P [place] 51 degrees SL MUSE Calculated R [place] -3 degrees SL MUSE Calculated T [place] 51 degrees [facility] Interpretation EKG NORMAL SINUS RHYTHM PROLONGED QT ABNORMAL ECG NO PREVIOUS ECGS AVAILABLE Confirmed by JAYLENE SOTOMAYOR DO ([id number]) on 01/07/2025 9:22:23 PM [facility] 01/03/2025 3:22 AM [facility]EL[facility] 01/07/2025 9:22 PM [facility] Jeniffer Goldstein UNION REPRESENTATIVE-COMPENSATION ADJUSTER ECG ORDERABLES Edited R esult - Final [facility] * CT CERVICAL SPINE WO CONTRAST (01/02/2025 9:11 PM [facility] DEVELOPMENT HEAD) Anatomical Region Laterality Modality Spine Computed Tomogra phy 01/02/2025 9:33 PM [facility]ELOP[facility] Impressions 01/02/2025 10:27 PM [facility] IMPRESSION: 1.No acute intracranial hemorrhage, midline shift, or significant mass effect. 2.No evidence of acute fracture in the cervical spine. > Dictated by Pola Bates MD, (co founder and president). > Dictated by Pola Bates MD 01/02/2025 9:33 PM > Dictated by Air Conditioning Service Technician I, Ally Cash MD have personally reviewed and interpreted this examination/study. > Interpreting Provider: Ally Cash MD on 01/02/2025 10:27 PM Narrative 01/02/2025 10:27 PM [facility]ING [facility] DEVELOP[facility] HEAD PROCEDURE: CT HEAD WO CONTRAST, CT CERVICAL SPINE WO CONTRAST, DATE/TIME OF EXAM: 01/02/2025 9:12 PM, LOCATION [facility] INDICATION: T14.90XA: Trauma EXAMINATION: 1.Computed tomography (CT) of the head without contrast 2.CT of the cervical spine without contrast ADDITIONAL CLINICAL INFORMATION: Ordering Provider Reason For Exam: trauma (accession [id number]), frx (accession [id number]) Technologist Note: Additional: TECHNIQUE: CT of the head and cervical spine was performed without contrast according to standard protocol. CT dose reduction technique was used, including Automated Exposure Control. COMPARISON: No prior study is available for comparison at the time of this dictation. FINDINGS: Head: No acute intra- or extra-axial fluid collections are identified. The ventricles are of normal size, shape, and morphology. The basilar cisterns are patent. No mass effect or midline shift is seen. The velez-white matter differentiation is normal. There is vascular calcification of the carotid siphons. No acute calvarial fracture is identified. The orbits appear normal. There is mild paranasal sinus disease. The mastoid air cells are clear. No soft tissue abnormality is identified. Cervical spine: The alignment is normal without evidence of traumatic malalignment. Vertebral bodies are normal in height without evidence of acute fracture. There are limbus vertebrae versus opacification of the anterior longitudinal ligament at C4-C5 and C6-C7. Other than middle atlantoaxial joint osteoarthritis, the craniocervical junction appears normal. There is mild degenerative disc disease. The central canal is mildly stenotic at C3-C4 and C4-C5 due to posterior disc osteophyte complexes and opacification of the posterior longitudinal ligament. There are varying degrees of mild facet osteoarthritis. No uncovertebral hypertrophy is seen. Similarly, there is no foraminal narrowing. No soft tissue abnormality is identified. Procedure Note Ally Cash MD - 01/02/2025 PROCEDURE: CT HEAD WO CONTRAST, CT CERVICAL SPINE WO CONTRAST,DATE/TIME OF EXAM: 01/02/2025 9:12 PM, LOCATION [facility] INDICATION: T14.90XA: Trauma EXAMINATION: 1.Computed tomography (CT) of the head without contrast 2.CT of the cervical spine without contrast ADDITIONAL CLINICAL INFORMATION: Ordering Provider Reason For Exam: trauma (accession [id number]), frx (accession [id number]) Technologist Note: Additional: TECHNIQUE: CT of the head and cervical spine was performed withoutcontrast according to standard protocol. CT dose reduction technique was used, including Automated Exposure Control. COMPARISON: No prior study is available for comparison at the time ofthis dictation. FINDINGS: Head: No acute intra- or extra-axial fluid collections are identified. The ventricles are of normal size, shape, and morphology. The basilar cisterns are patent. No mass effect or midline shift is seen. The velez-white matter differentiation is normal. There is vascular calcification of the carotid siphons. No acute calvarial fracture is identified. The orbits appear normal. There is mild paranasal sinus disease. The mastoid air cells are clear. No soft tissue abnormality is identified. Cervical spine: The alignment is normal without evidence of traumatic malalignment. Vertebral bodies are normal in height without evidence of acutefracture. There are limbus vertebrae versus opacification of the anterior longitudinal ligament at C4-C5 and C6-C7. Other than middle atlantoaxial joint osteoarthritis, the craniocervical junction appears normal. There is mild degenerative disc disease. The central canal is mildly stenotic at C3-C4 and C4-C5 due to posterior disc osteophyte complexesand opacification of the posterior longitudinal ligament. There are varying degrees of mild facet osteoarthritis. No uncovertebral hypertrophy isseen. Similarly, there is no foraminal narrowing. No soft tissue abnormality is identified. IMPRESSION: 1.No acute intracranial hemorrhage, midline shift, or significant mass effect. 2.No evidence of acute fracture in the cervical spine. > Dictated by Pola Bates MD, (co founder and president). > Dictated by Pola Bates MD 01/02/2025 9:33 PM > Dictated by Air Conditioning Service Technician I, Ally Cash MD have personally reviewed and interpreted this examination/study. > Interpreting Provider: Ally Cash MD on 01/02/2025 10:27 PM Jose Posada MD CT ORDERABLES Final Result * CT HEAD WO CONTRAST (01/02/2025 9:11 PM TRAINING AND DEVELOPMENT HEAD) Anatomical Region Laterality Modality Head Computed Tomogra phy 01/02/2025 9:33 PM TRAINING AND DEVELOPMENT HEAD Impressions 01/02/2025 10:27 PM TRAINING AND DEVELOPMENT HEAD IMPRESSION: 1.No acute intracranial hemorrhage, midline shift, or significant mass effect. 2.No evidence of acute fracture in the cervical spine. > Dictated by Pola Bates MD, (co founder and president). > Dictated by Pola Bates MD 01/02/2025 9:33 PM > Dictated by Air Conditioning Service Technician I, Ally Cash MD have personally reviewed and interpreted this examination/study. > Interpreting Provider: Ally Cash MD on 01/02/2025 10:27 PM Narrative 01/02/2025 10:27 PM TRAINING AND DEVELOPMENT HEAD PROCEDURE: CT HEAD WO CONTRAST, CT CERVICAL SPINE WO CONTRAST, DATE/TIME OF EXAM: 01/02/2025 9:12 PM, LOCATION [facility] INDICATION: T14.90XA: Trauma EXAMINATION: 1.Computed tomography (CT) of the head without contrast 2.CT of the cervical spine without contrast ADDITIONAL CLINICAL INFORMATION: Ordering Provider Reason For Exam: trauma (accession [id number]), frx (accession [id number]) Technologist Note: Additional: TECHNIQUE: CT of the head and cervical spine was performed without contrast according to standard protocol. CT dose reduction technique was used, including Automated Exposure Control. COMPARISON: No prior study is available for comparison at the time of this dictation. FINDINGS: Head: No acute intra- or extra-axial fluid collections are identified. The ventricles are of normal size, shape, and morphology. The basilar cisterns are patent. No mass effect or midline shift is seen. The velez-white matter differentiation is normal. There is vascular calcification of the carotid siphons. No acute calvarial fracture is identified. The orbits appear normal. There is mild paranasal sinus disease. The mastoid air cells are clear. No soft tissue abnormality is identified. Cervical spine: The alignment is normal without evidence of traumatic malalignment. Vertebral bodies are normal in height without evidence of acute fracture. There are limbus vertebrae versus opacification of the anterior longitudinal ligament at C4-C5 and C6-C7. Other than middle atlantoaxial joint osteoarthritis, the craniocervical junction appears normal. There is mild degenerative disc disease. The central canal is mildly stenotic at C3-C4 and C4-C5 due to posterior disc osteophyte complexes and opacification of the posterior longitudinal ligament. There are varying degrees of mild facet osteoarthritis. No uncovertebral hypertrophy is seen. Similarly, there is no foraminal narrowing. No soft tissue abnormality is identified. Procedure Note Ally Cash MD - 01/02/2025 PROCEDURE: CT HEAD WO CONTRAST, CT CERVICAL SPINE WO CONTRAST,DATE/TIME OF EXAM: 01/02/2025 9:12 PM, LOCATION [facility] INDICATION: T14.90XA: Trauma EXAMINATION: 1.Computed tomography (CT) of the head without contrast 2.CT of the cervical spine without contrast ADDITIONAL CLINICAL INFORMATION: Ordering Provider Reason For Exam: trauma (accession [id number]), frx (accession [id number]) Technologist Note: Additional: TECHNIQUE: CT of the head and cervical spine was performed withoutcontrast according to standard protocol. CT dose reduction technique was used, including Automated Exposure Control. COMPARISON: No prior study is available for comparison at the time ofthis dictation. FINDINGS: Head: No acute intra- or extra-axial fluid collections are identified. The ventricles are of normal size, shape, and morphology. The basilar cisterns are patent. No mass effect or midline shift is seen. The velez-white matter differentiation is normal. There is vascular calcification of the carotid siphons. No acute calvarial fracture is identified. The orbits appear normal. There is mild paranasal sinus disease. The mastoid air cells are clear. No soft tissue abnormality is identified. Cervical spine: The alignment is normal without evidence of traumatic malalignment. Vertebral bodies are normal in height without evidence of acutefracture. There are limbus vertebrae versus opacification of the anterior longitudinal ligament at C4-C5 and C6-C7. Other than middle atlantoaxial joint osteoarthritis, the craniocervical junction appears normal. There is mild degenerative disc disease. The central canal is mildly stenotic at C3-C4 and C4-C5 due to posterior disc osteophyte complexesand opacification of the posterior longitudinal ligament. There are varying degrees of mild facet osteoarthritis. No uncovertebral hypertrophy isseen. Similarly, there is no foraminal narrowing. No soft tissue abnormality is identified. IMPRESSION: 1.No acute intracranial hemorrhage, midline shift, or significant mass effect. 2.No evidence of acute fracture in the cervical spine. > Dictated by Pola Bates MD, (co founder and president). > Dictated by Pola Bates MD 01/02/2025 9:33 PM > Dictated by Air Conditioning Service Technician I, Ally Cash MD have personally reviewed and interpreted this examination/study. > Interpreting Provider: Ally Cash MD on 01/02/2025 10:27 PM Jose Posada MD CT ORDERABLES Final Result * XR Ankle Right 3Vw or More (01/02/2025 7:25 PM TRAINING AND DEVELOPMENT HEAD) Anatomical Region Laterality Modality Lower Extremity Digital Radiogra phy 01/02/2025 7:35 PM TRAINING AND DEVELOPMENT HEAD Impressions 01/03/2025 1:30 AM TRAINING AND DEVELOPMENT HEAD IMPRESSION: No acute fracture or dislocation identified. Report dictated by Oliver Fairbanks MD, (co founder and president). > Dictated by Oliver Fairbanks MD 01/02/2025 7:35 PM > Dictated by Air Conditioning Service Technician I, Edgar Orta MD have personally reviewed and interpreted this examination/study. > Interpreting Provider: Edgar Orta MD on 01/03/2025 1:30 AM Narrative 01/03/2025 1:30 AM TRAINING AND DEVELOPMENT HEAD PROCEDURE: XR ANKLE RIGHT 3VW OR MORE, DATE/TIME OF EXAM: 01/02/2025 7:25 PM, LOCATION [facility] INDICATION: T14.90XA: Trauma ADDITIONAL CLINICAL INFORMATION: Ordering Provider Reason For Exam: frx Technologist Note: Additional: COMPARISON: None. FINDINGS: The osseous structures are intact and well aligned without acute fracture or dislocation. The ankle mortise is intact. No soft tissue swelling is present. Large calcaneal plantar osteophyte. There are vascular calcifications. Procedure Note Edgar Orta MD - 01/03/2025 PROCEDURE: XR ANKLE RIGHT 3VW OR MORE, DATE/TIME OF EXAM: 57:25 PM, LOCATION [facility] INDICATION: T14.90XA: Trauma ADDITIONAL CLINICAL INFORMATION: Ordering Provider Reason For Exam: frx Technologist Note: Additional: COMPARISON: None. FINDINGS: The osseous structures are intact and well aligned without acutefracture or dislocation. The ankle mortise is intact. No soft tissue swelling is present. Large calcaneal plantar osteophyte. There are vascular calcifications. IMPRESSION: No acute fracture or dislocation identified. Report dictated by Oliver Fairbanks MD, (co founder and president). > Dictated by Oliver Fairbanks MD 01/02/2025 7:35 PM > Dictated by Air Conditioning Service Technician I, Edgar Orta MD have personally reviewed and interpreted this examination/study. > Interpreting Provider: Edgar Orta MD on 01/03/2025 1:30 AM Jose Posada MD DIAGNOSTIC IMAGING ORDERABLES Fi nal Result * XR Ankle Left 3Vw or More (01/02/2025 7:25 PM TRAINING AND DEVELOPMENT HEAD) Anatomical Region Laterality Modality Lower Extremity Digital Radiogra phy 01/02/2025 7:34 PM TRAINING AND DEVELOPMENT HEAD Impressions 01/03/2025 1:30 AM TRAINING AND DEVELOPMENT HEAD IMPRESSION: No acute fracture or dislocation identified. Report dictated by Oliver Fairbanks MD, (co founder and president). > Dictated by Oliver Fairbanks MD 01/02/2025 7:34 PM > Dictated by Air Conditioning Service Technician Edgar Way MD have personally reviewed and interpreted this examination/study. > Interpreting Provider: Edgar Orta MD on 01/03/2025 1:30 AM Narrative 01/03/2025 1:30 AM TRAINING AND DEVELOPMENT HEAD PROCEDURE: XR ANKLE LEFT 3VW OR MORE, DATE/TIME OF EXAM: 01/02/2025 7:25 PM, LOCATION [facility] INDICATION: T14.90XA: Trauma ADDITIONAL CLINICAL INFORMATION: Ordering Provider Reason For Exam: frx Technologist Note: Additional: COMPARISON: None. FINDINGS: The osseous structures are intact and well aligned without acute fracture or dislocation. The ankle mortise is intact. Bone density and texture are normal. Soft tissue swelling is present. Large plantar calcaneal osteophyte. There are vascular calcifications. Procedure Note Edgar Orta MD - 01/03/2025 PROCEDURE: XR ANKLE LEFT 3VW OR MORE, DATE/TIME OF EXAM: 57:25 PM, LOCATION [facility] INDICATION: T14.90XA: Trauma ADDITIONAL CLINICAL INFORMATION: Ordering Provider Reason For Exam: frx Technologist Note: Additional: COMPARISON: None. FINDINGS: The osseous structures are intact and well aligned without acutefracture or dislocation. The ankle mortise is intact. Bone density and textureare normal. Soft tissue swelling is present. Large plantar calcaneal osteophyte. There are vascular calcifications. IMPRESSION: No acute fracture or dislocation identified. Report dictated by Oliver Fairbanks MD, (co founder and president). > Dictated by Oliver Fairbanks MD 01/02/2025 7:34 PM > Dictated by Air Conditioning Service Technician Edgar Way MD have personally reviewed and interpreted this examination/study. > Interpreting Provider: Edgar Orta MD on 01/03/2025 1:30 AM Jose Posada MD DIAGNOSTIC IMAGING ORDERABLES Fi nal Result * XR Humerus Left 2Vw or More (01/02/2025 7:25 PM TRAINING AND DEVELOPMENT HEAD) Anatomical Region Laterality Modality Upper Extremity Digital Radiogra phy 01/02/2025 7:36 PM TRAINING AND DEVELOPMENT HEAD Impressions 01/03/2025 1:31 AM TRAINING AND DEVELOPMENT HEAD IMPRESSION: Mildly displaced fracture of the left ulnar styloid and likely distal radius. Report dictated by Oliver Fairbanks MD, (co founder and president). > Dictated by Oliver Fairbanks MD 01/02/2025 7:36 PM > Dictated by Air Conditioning Service Technician I, Edgar Orta MD have personally reviewed and interpreted this examination/study. > Interpreting Provider: Edgar Orta MD on 01/03/2025 1:31 AM Narrative 01/03/2025 1:31 AM TRAINING AND DEVELOPMENT HEAD PROCEDURE: XR SHOULDER LEFT 2VW OR MORE, XR HUMERUS LEFT 2VW OR MORE, XR ELBOW LEFT 3VW OR MORE, XR HAND LEFT 3VW OR MORE, XR WRIST LEFT 3VW OR MORE, XR FOREARM LEFT 2VW OR MORE, DATE/TIME OF EXAM: 01/02/2025 7:24 PM, LOCATION [facility] INDICATION: T14.90XA: Trauma ADDITIONAL CLINICAL INFORMATION: Ordering Provider Reason For Exam: frx Technologist Note: Additional: COMPARISON: None. FINDINGS: Left shoulder: The osseous structures are intact without acute fracture. The glenohumeral and acromioclavicular joints are in anatomic alignment. Bone density and texture are normal. Left humerus: The humerus is intact without acute fracture. The joint spaces are preserved. Bone density and texture are normal. Left elbow: Cortical irregularity at the medial condyle could represent a chronic ligamentous injury. The joint spaces are preserved. No joint effusion is seen. Bone density and texture are normal. No soft tissue swelling is present. Left forearm: The radius and ulna are intact without evidence of acute fracture. Bone density and texture are normal. No soft tissue swelling is present. Left wrist: Mildly displaced fracture of the ulnar styloid. Cortical step-off at the medial aspect of the distal radius likely represents a fracture. The joint spaces are preserved. Bone density and texture are normal. Soft tissue swelling is present. Left hand: The osseous structures are intact and well aligned without acute fracture or dislocation. The joint spaces are preserved. Bone density and texture are normal. No soft tissue swelling is present. Procedure Note Edgar Orta MD - 01/03/2025 PROCEDURE: XR SHOULDER LEFT 2VW OR MORE, XR HUMERUS LEFT 2VW OR MORE,XR ELBOW LEFT 3VW OR MORE, XR HAND LEFT 3VW OR MORE, XR WRIST LEFT 3VW OR MORE, XR FOREARM LEFT 2VW OR MORE, DATE/TIME OF EXAM: 01/02/2025 7:24PM, LOCATION [facility] INDICATION: T14.90XA: Trauma ADDITIONAL CLINICAL INFORMATION: Ordering Provider Reason For Exam: frx Technologist Note: Additional: COMPARISON: None. FINDINGS: Left shoulder: The osseous structures are intact without acute fracture. Theglenohumeral and acromioclavicular joints are in anatomic alignment. Bone density and texture are normal. Left humerus: The humerus is intact without acute fracture. The joint spaces are preserved. Bone density and texture are normal. Left elbow: Cortical irregularity at the medial condyle could represent a chronic ligamentous injury. The joint spaces are preserved. No joint effusion is seen. Bone density and texture are normal. No soft tissue swelling is present. Left forearm: The radius and ulna are intact without evidence of acute fracture. Bone density and texture are normal. No soft tissue swelling is present. Left wrist: Mildly displaced fracture of the ulnar styloid. Cortical step-off at the medial aspect of the distal radius likely represents a fracture. Thejoint spaces are preserved. Bone density and texture are normal. Soft tissue swelling is present. Left hand: The osseous structures are intact and well aligned without acutefracture or dislocation. The joint spaces are preserved. Bone density and texture are normal. No soft tissue swelling is present. IMPRESSION: Mildly displaced fracture of the left ulnar styloid and likely distal radius. Report dictated by Oliver Fairbanks MD, (co founder and president). > Dictated by Oliver Fairbanks MD 01/02/2025 7:36 PM > Dictated by Air Conditioning Service Technician I, Edgar Orta MD have personally reviewed and interpreted this examination/study. > Interpreting Provider: Edgar Orta MD on 01/03/2025 1:31 AM us Jose Posada MD DIAGNOSTIC IMAGING ORDERABLES Fi nal Result * XR Elbow Left 3Vw or More (01/02/2025 7:24 PM TRAINING AND DEVELOPMENT HEAD) Anatomical Region Laterality Modality Upper Extremity Digital Radiogra phy 01/02/2025 7:36 PM TRAINING AND DEVELOPMENT HEAD Impressions 01/03/2025 1:31 AM TRAINING AND DEVELOPMENT HEAD IMPRESSION: Mildly displaced fracture of the left ulnar styloid and likely distal radius. Report dictated by Oliver Fairbanks MD, (co founder and president). > Dictated by Oliver Fairbanks MD 01/02/2025 7:36 PM > Dictated by Air Conditioning Service Technician I, Edgar Orta MD have personally reviewed and interpreted this examination/study. > Interpreting Provider: Edgar Orta MD on 01/03/2025 1:31 AM Narrative 01/03/2025 1:31 AM TRAINING AND DEVELOPMENT HEAD PROCEDURE: XR SHOULDER LEFT 2VW OR MORE, XR HUMERUS LEFT 2VW OR MORE, XR ELBOW LEFT 3VW OR MORE, XR HAND LEFT 3VW OR MORE, XR WRIST LEFT 3VW OR MORE, XR FOREARM LEFT 2VW OR MORE, DATE/TIME OF EXAM: 01/02/2025 7:24 PM, LOCATION [facility] INDICATION: T14.90XA: Trauma ADDITIONAL CLINICAL INFORMATION: Ordering Provider Reason For Exam: frx Technologist Note: Additional: COMPARISON: None. FINDINGS: Left shoulder: The osseous structures are intact without acute fracture. The glenohumeral and acromioclavicular joints are in anatomic alignment. Bone density and texture are normal. Left humerus: The humerus is intact without acute fracture. The joint spaces are preserved. Bone density and texture are normal. Left elbow: Cortical irregularity at the medial condyle could represent a chronic ligamentous injury. The joint spaces are preserved. No joint effusion is seen. Bone density and texture are normal. No soft tissue swelling is present. Left forearm: The radius and ulna are intact without evidence of acute fracture. Bone density and texture are normal. No soft tissue swelling is present. Left wrist: Mildly displaced fracture of the ulnar styloid. Cortical step-off at the medial aspect of the distal radius likely represents a fracture. The joint spaces are preserved. Bone density and texture are normal. Soft tissue swelling is present. Left hand: The osseous structures are intact and well aligned without acute fracture or dislocation. The joint spaces are preserved. Bone density and texture are normal. No soft tissue swelling is present. Procedure Note Edgar Orta MD - 01/03/2025 PROCEDURE: XR SHOULDER LEFT 2VW OR MORE, XR HUMERUS LEFT 2VW OR MORE,XR ELBOW LEFT 3VW OR MORE, XR HAND LEFT 3VW OR MORE, XR WRIST LEFT 3VW OR MORE, XR FOREARM LEFT 2VW OR MORE, DATE/TIME OF EXAM: 01/02/2025 7:24PM, LOCATION [facility] INDICATION: T14.90XA: Trauma ADDITIONAL CLINICAL INFORMATION: Ordering Provider Reason For Exam: frx Technologist Note: Additional: COMPARISON: None. FINDINGS: Left shoulder: The osseous structures are intact without acute fracture. Theglenohumeral and acromioclavicular joints are in anatomic alignment. Bone density and texture are normal. Left humerus: The humerus is intact without acute fracture. The joint spaces are preserved. Bone density and texture are normal. Left elbow: Cortical irregularity at the medial condyle could represent a chronic ligamentous injury. The joint spaces are preserved. No joint effusion is seen. Bone density and texture are normal. No soft tissue swelling is present. Left forearm: The radius and ulna are intact without evidence of acute fracture. Bone density and texture are normal. No soft tissue swelling is present. Left wrist: Mildly displaced fracture of the ulnar styloid. Cortical step-off at the medial aspect of the distal radius likely represents a fracture. Thejoint spaces are preserved. Bone density and texture are normal. Soft tissue swelling is present. Left hand: The osseous structures are intact and well aligned without acutefracture or dislocation. The joint spaces are preserved. Bone density and texture are normal. No soft tissue swelling is present. IMPRESSION: Mildly displaced fracture of the left ulnar styloid and likely distal radius. Report dictated by Oliver Fairbanks MD, (co founder and president). > Dictated by Oliver Fairbanks MD 01/02/2025 7:36 PM > Dictated by Air Conditioning Service Technician I, Edgar Orta MD have personally reviewed and interpreted this examination/study. > Interpreting Provider: Edgar Orta MD on 01/03/2025 1:31 AM us Jose Posada MD DIAGNOSTIC IMAGING ORDERABLES Fi nal Result * XR Shoulder Left 2Vw or More (01/02/2025 7:24 PM TRAINING AND DEVELOPMENT HEAD) Anatomical Region Laterality Modality Upper Extremity Digital Radiogra phy 01/02/2025 7:36 PM TRAINING AND DEVELOPMENT HEAD Impressions 01/03/2025 1:31 AM TRAINING AND DEVELOPMENT HEAD IMPRESSION: Mildly displaced fracture of the left ulnar styloid and likely distal radius. Report dictated by Oliver Fairbanks MD, (co founder and president). > Dictated by Oliver Fairbanks MD 01/02/2025 7:36 PM > Dictated by Air Conditioning Service Technician I, Edgar Orta MD have personally reviewed and interpreted this examination/study. > Interpreting Provider: Edgar Orta MD on 01/03/2025 1:31 AM Narrative 01/03/2025 1:31 AM TRAINING AND DEVELOPMENT HEAD PROCEDURE: XR SHOULDER LEFT 2VW OR MORE, XR HUMERUS LEFT 2VW OR MORE, XR ELBOW LEFT 3VW OR MORE, XR HAND LEFT 3VW OR MORE, XR WRIST LEFT 3VW OR MORE, XR FOREARM LEFT 2VW OR MORE, DATE/TIME OF EXAM: 01/02/2025 7:24 PM, LOCATION [facility] INDICATION: T14.90XA: Trauma ADDITIONAL CLINICAL INFORMATION: Ordering Provider Reason For Exam: frx Technologist Note: Additional: COMPARISON: None. FINDINGS: Left shoulder: The osseous structures are intact without acute fracture. The glenohumeral and acromioclavicular joints are in anatomic alignment. Bone density and texture are normal. Left humerus: The humerus is intact without acute fracture. The joint spaces are preserved. Bone density and texture are normal. Left elbow: Cortical irregularity at the medial condyle could represent a chronic ligamentous injury. The joint spaces are preserved. No joint effusion is seen. Bone density and texture are normal. No soft tissue swelling is present. Left forearm: The radius and ulna are intact without evidence of acute fracture. Bone density and texture are normal. No soft tissue swelling is present. Left wrist: Mildly displaced fracture of the ulnar styloid. Cortical step-off at the medial aspect of the distal radius likely represents a fracture. The joint spaces are preserved. Bone density and texture are normal. Soft tissue swelling is present. Left hand: The osseous structures are intact and well aligned without acute fracture or dislocation. The joint spaces are preserved. Bone density and texture are normal. No soft tissue swelling is present. Procedure Note Edgar Orta MD - 01/03/2025 PROCEDURE: XR SHOULDER LEFT 2VW OR MORE, XR HUMERUS LEFT 2VW OR MORE,XR ELBOW LEFT 3VW OR MORE, XR HAND LEFT 3VW OR MORE, XR WRIST LEFT 3VW OR MORE, XR FOREARM LEFT 2VW OR MORE, DATE/TIME OF EXAM: 01/02/2025 7:24PM, LOCATION [facility] INDICATION: T14.90XA: Trauma ADDITIONAL CLINICAL INFORMATION: Ordering Provider Reason For Exam: frx Technologist Note: Additional: COMPARISON: None. FINDINGS: Left shoulder: The osseous structures are intact without acute fracture. Theglenohumeral and acromioclavicular joints are in anatomic alignment. Bone density and texture are normal. Left humerus: The humerus is intact without acute fracture. The joint spaces are preserved. Bone density and texture are normal. Left elbow: Cortical irregularity at the medial condyle could represent a chronic ligamentous injury. The joint spaces are preserved. No joint effusion is seen. Bone density and texture are normal. No soft tissue swelling is present. Left forearm: The radius and ulna are intact without evidence of acute fracture. Bone density and texture are normal. No soft tissue swelling is present. Left wrist: Mildly displaced fracture of the ulnar styloid. Cortical step-off at the medial aspect of the distal radius likely represents a fracture. Thejoint spaces are preserved. Bone density and texture are normal. Soft tissue swelling is present. Left hand: The osseous structures are intact and well aligned without acutefracture or dislocation. The joint spaces are preserved. Bone density and texture are normal. No soft tissue swelling is present. IMPRESSION: Mildly displaced fracture of the left ulnar styloid and likely distal radius. Report dictated by Oliver Fairbanks MD, (co founder and president). > Dictated by Oliver Fairbanks MD 01/02/2025 7:36 PM > Dictated by Air Conditioning Service Technician I, Edgar Orta MD have personally reviewed and interpreted this examination/study. > Interpreting Provider: Edgar Orta MD on 01/03/2025 1:31 AM us Jose Posada MD DIAGNOSTIC IMAGING ORDERABLES Fi nal Result * XR Hand Left 3Vw or More (01/02/2025 7:24 PM TRAINING AND DEVELOPMENT HEAD) Anatomical Region Laterality Modality Wrist / Hand Digital Radiogra phy 01/02/2025 7:36 PM TRAINING AND DEVELOPMENT HEAD Impressions 01/03/2025 1:31 AM TRAINING AND DEVELOPMENT HEAD IMPRESSION: Mildly displaced fracture of the left ulnar styloid and likely distal radius. Report dictated by Oliver Fairbanks MD, (co founder and president). > Dictated by Oliver Fairbanks MD 01/02/2025 7:36 PM > Dictated by Air Conditioning Service Technician I, Edgar Orta MD have personally reviewed and interpreted this examination/study. > Interpreting Provider: Edgar Orta MD on 01/03/2025 1:31 AM Narrative 01/03/2025 1:31 AM TRAINING AND DEVELOPMENT HEAD PROCEDURE: XR SHOULDER LEFT 2VW OR MORE, XR HUMERUS LEFT 2VW OR MORE, XR ELBOW LEFT 3VW OR MORE, XR HAND LEFT 3VW OR MORE, XR WRIST LEFT 3VW OR MORE, XR FOREARM LEFT 2VW OR MORE, DATE/TIME OF EXAM: 01/02/2025 7:24 PM, LOCATION [facility] INDICATION: T14.90XA: Trauma ADDITIONAL CLINICAL INFORMATION: Ordering Provider Reason For Exam: frx Technologist Note: Additional: COMPARISON: None. FINDINGS: Left shoulder: The osseous structures are intact without acute fracture. The glenohumeral and acromioclavicular joints are in anatomic alignment. Bone density and texture are normal. Left humerus: The humerus is intact without acute fracture. The joint spaces are preserved. Bone density and texture are normal. Left elbow: Cortical irregularity at the medial condyle could represent a chronic ligamentous injury. The joint spaces are preserved. No joint effusion is seen. Bone density and texture are normal. No soft tissue swelling is present. Left forearm: The radius and ulna are intact without evidence of acute fracture. Bone density and texture are normal. No soft tissue swelling is present. Left wrist: Mildly displaced fracture of the ulnar styloid. Cortical step-off at the medial aspect of the distal radius likely represents a fracture. The joint spaces are preserved. Bone density and texture are normal. Soft tissue swelling is present. Left hand: The osseous structures are intact and well aligned without acute fracture or dislocation. The joint spaces are preserved. Bone density and texture are normal. No soft tissue swelling is present. Procedure Note Edgar Orta MD - 01/03/2025 PROCEDURE: XR SHOULDER LEFT 2VW OR MORE, XR HUMERUS LEFT 2VW OR MORE,XR ELBOW LEFT 3VW OR MORE, XR HAND LEFT 3VW OR MORE, XR WRIST LEFT 3VW OR MORE, XR FOREARM LEFT 2VW OR MORE, DATE/TIME OF EXAM: 01/02/2025 7:24PM, LOCATION [facility] INDICATION: T14.90XA: Trauma ADDITIONAL CLINICAL INFORMATION: Ordering Provider Reason For Exam: frx Technologist Note: Additional: COMPARISON: None. FINDINGS: Left shoulder: The osseous structures are intact without acute fracture. Theglenohumeral and acromioclavicular joints are in anatomic alignment. Bone density and texture are normal. Left humerus: The humerus is intact without acute fracture. The joint spaces are preserved. Bone density and texture are normal. Left elbow: Cortical irregularity at the medial condyle could represent a chronic ligamentous injury. The joint spaces are preserved. No joint effusion is seen. Bone density and texture are normal. No soft tissue swelling is present. Left forearm: The radius and ulna are intact without evidence of acute fracture. Bone density and texture are normal. No soft tissue swelling is present. Left wrist: Mildly displaced fracture of the ulnar styloid. Cortical step-off at the medial aspect of the distal radius likely represents a fracture. Thejoint spaces are preserved. Bone density and texture are normal. Soft tissue swelling is present. Left hand: The osseous structures are intact and well aligned without acutefracture or dislocation. The joint spaces are preserved. Bone density and texture are normal. No soft tissue swelling is present. IMPRESSION: Mildly displaced fracture of the left ulnar styloid and likely distal radius. Report dictated by Oliver Fairbanks MD, (co founder and president). > Dictated by Oliver Fairbanks MD 01/02/2025 7:36 PM > Dictated by Air Conditioning Service Technician I, Edgar Orta MD have personally reviewed and interpreted this examination/study. > Interpreting Provider: Edgar Orta MD on 01/03/2025 1:31 AM Jose Posada MD DIAGNOSTIC IMAGING ORDERABLES Fi nal Result * XR Wrist Left 3Vw or More (01/02/2025 7:24 PM [facility]) Anatomical Region Laterality Modality Wrist / Hand Digital Radiogra phy 01/02/2025 7:36 PM [facility] Impressions 01/03/2025 1:31 AM [facility] IMPRESSION: Mildly displaced fracture of the left ulnar styloid and likely distal radius. Report dictated by Oliver Fairbanks MD, (co founder and president). > Dictated by Oliver Fairbanks MD 01/02/2025 7:36 PM > Dictated by Air Conditioning Service Technician I, Edgar Orta MD have personally reviewed and interpreted this examination/study. > Interpreting Provider: Edgar Orta MD on 01/03/2025 1:31 AM Narrative 01/03/2025 1:31 AM [facility] PROCEDURE: XR SHOULDER LEFT 2VW OR MORE, XR HUMERUS LEFT 2VW OR MORE, XR ELBOW LEFT 3VW OR MORE, XR HAND LEFT 3VW OR MORE, XR WRIST LEFT 3VW OR MORE, XR FOREARM LEFT 2VW OR MORE, DATE/TIME OF EXAM: 01/02/2025 7:24 PM, LOCATION [facility] INDICATION: T14.90XA: Trauma ADDITIONAL CLINICAL INFORMATION: Ordering Provider Reason For Exam: frx Technologist Note: Additional: COMPARISON: None. FINDINGS: Left shoulder: The osseous structures are intact without acute fracture. The glenohumeral and acromioclavicular joints are in anatomic alignment. Bone density and texture are normal. Left humerus: The humerus is intact without acute fracture. The joint spaces are preserved. Bone density and texture are normal. Left elbow: Cortical irregularity at the medial condyle could represent a chronic ligamentous injury. The joint spaces are preserved. No joint effusion is seen. Bone density and texture are normal. No soft tissue swelling is present. Left forearm: The radius and ulna are intact without evidence of acute fracture. Bone density and texture are normal. No soft tissue swelling is present. Left wrist: Mildly displaced fracture of the ulnar styloid. Cortical step-off at the medial aspect of the distal radius likely represents a fracture. The joint spaces are preserved. Bone density and texture are normal. Soft tissue swelling is present. Left hand: The osseous structures are intact and well aligned without acute fracture or dislocation. The joint spaces are preserved. Bone density and texture are normal. No soft tissue swelling is present. Procedure Note Edgar Orta MD - 01/03/2025 PROCEDURE: XR SHOULDER LEFT 2VW OR MORE, XR HUMERUS LEFT 2VW OR MORE,XR ELBOW LEFT 3VW OR MORE, XR HAND LEFT 3VW OR MORE, XR WRIST LEFT 3VW OR MORE, XR FOREARM LEFT 2VW OR MORE, DATE/TIME OF EXAM: 01/02/2025 7:24PM, LOCATION [facility] INDICATION: T14.90XA: Trauma ADDITIONAL CLINICAL INFORMATION: Ordering Provider Reason For Exam: frx Technologist Note: Additional: COMPARISON: None. FINDINGS: Left shoulder: The osseous structures are intact without acute fracture. Theglenohumeral and acromioclavicular joints are in anatomic alignment. Bone density and texture are normal. Left humerus: The humerus is intact without acute fracture. The joint spaces are preserved. Bone density and texture are normal. Left elbow: Cortical irregularity at the medial condyle could represent a chronic ligamentous injury. The joint spaces are preserved. No joint effusion is seen. Bone density and texture are normal. No soft tissue swelling is present. Left forearm: The radius and ulna are intact without evidence of acute fracture. Bone density and texture are normal. No soft tissue swelling is present. Left wrist: Mildly displaced fracture of the ulnar styloid. Cortical step-off at the medial aspect of the distal radius likely represents a fracture. Thejoint spaces are preserved. Bone density and texture are normal. Soft tissue swelling is present. Left hand: The osseous structures are intact and well aligned without acutefracture or dislocation. The joint spaces are preserved. Bone density and texture are normal. No soft tissue swelling is present. IMPRESSION: Mildly displaced fracture of the left ulnar styloid and likely distal radius. Report dictated by Oliver Fairbanks MD, (co founder and president). > Dictated by Oliver Fairbanks MD 01/02/2025 7:36 PM > Dictated by Air Conditioning Service Technician I, Edgar Orta MD have personally reviewed and interpreted this examination/study. > Interpreting Provider: Edgar Orta MD on 01/03/2025 1:31 AM us Jose Posada MD DIAGNOSTIC IMAGING ORDERABLES Fi nal Result * XR Forearm Left 2Vw or More (01/02/2025 7:22 PM [facility]OP[facility]) Anatomical Region Laterality Modality Upper Extremity Digital Radiogra phy 01/02/2025 7:36 PM [facility] Impressions 01/03/2025 1:31 AM [facility] IMPRESSION: Mildly displaced fracture of the left ulnar styloid and likely distal radius. Report dictated by Oliver Fairbanks MD, (co founder and president). > Dictated by Oliver Fairbanks MD 01/02/2025 7:36 PM > Dictated by Air Conditioning Service Technician I, Edgar Orta MD have personally reviewed and interpreted this examination/study. > Interpreting Provider: Edgar Orta MD on 01/03/2025 1:31 AM Narrative 01/03/2025 1:31 AM [facility] PROCEDURE: XR SHOULDER LEFT 2VW OR MORE, XR HUMERUS LEFT 2VW OR MORE, XR ELBOW LEFT 3VW OR MORE, XR HAND LEFT 3VW OR MORE, XR WRIST LEFT 3VW OR MORE, XR FOREARM LEFT 2VW OR MORE, DATE/TIME OF EXAM: 01/02/2025 7:24 PM, LOCATION [facility] INDICATION: T14.90XA: Trauma ADDITIONAL CLINICAL INFORMATION: Ordering Provider Reason For Exam: frx Technologist Note: Additional: COMPARISON: None. FINDINGS: Left shoulder: The osseous structures are intact without acute fracture. The glenohumeral and acromioclavicular joints are in anatomic alignment. Bone density and texture are normal. Left humerus: The humerus is intact without acute fracture. The joint spaces are preserved. Bone density and texture are normal. Left elbow: Cortical irregularity at the medial condyle could represent a chronic ligamentous injury. The joint spaces are preserved. No joint effusion is seen. Bone density and texture are normal. No soft tissue swelling is present. Left forearm: The radius and ulna are intact without evidence of acute fracture. Bone density and texture are normal. No soft tissue swelling is present. Left wrist: Mildly displaced fracture of the ulnar styloid. Cortical step-off at the medial aspect of the distal radius likely represents a fracture. The joint spaces are preserved. Bone density and texture are normal. Soft tissue swelling is present. Left hand: The osseous structures are intact and well aligned without acute fracture or dislocation. The joint spaces are preserved. Bone density and texture are normal. No soft tissue swelling is present. Procedure Note Edgar Orta MD - 01/03/2025 PROCEDURE: XR SHOULDER LEFT 2VW OR MORE, XR HUMERUS LEFT 2VW OR MORE,XR ELBOW LEFT 3VW OR MORE, XR HAND LEFT 3VW OR MORE, XR WRIST LEFT 3VW OR MORE, XR FOREARM LEFT 2VW OR MORE, DATE/TIME OF EXAM: 01/02/2025 7:24PM, LOCATION [facility] INDICATION: T14.90XA: Trauma ADDITIONAL CLINICAL INFORMATION: Ordering Provider Reason For Exam: frx Technologist Note: Additional: COMPARISON: None. FINDINGS: Left shoulder: The osseous structures are intact without acute fracture. Theglenohumeral and acromioclavicular joints are in anatomic alignment. Bone density and texture are normal. Left humerus: The humerus is intact without acute fracture. The joint spaces are preserved. Bone density and texture are normal. Left elbow: Cortical irregularity at the medial condyle could represent a chronic ligamentous injury. The joint spaces are preserved. No joint effusion is seen. Bone density and texture are normal. No soft tissue swelling is present. Left forearm: The radius and ulna are intact without evidence of acute fracture. Bone density and texture are normal. No soft tissue swelling is present. Left wrist: Mildly displaced fracture of the ulnar styloid. Cortical step-off at the medial aspect of the distal radius likely represents a fracture. Thejoint spaces are preserved. Bone density and texture are normal. Soft tissue swelling is present. Left hand: The osseous structures are intact and well aligned without acutefracture or dislocation. The joint spaces are preserved. Bone density and texture are normal. No soft tissue swelling is present. IMPRESSION: Mildly displaced fracture of the left ulnar styloid and likely distal radius. Report dictated by Oliver Fairbanks MD, (co founder and president). > Dictated by Oliver Fairbanks MD 01/02/2025 7:36 PM > Dictated by Air Conditioning Service Technician I, Edgar Orta MD have personally reviewed and interpreted this examination/study. > Interpreting Provider: Edgar Orta MD on 01/03/2025 1:31 AM Jose Posada MD DIAGNOSTIC IMAGING ORDERABLES Fi nal Result * TYPE + SCREEN PANEL (01/02/2025 6:32 PM [facility]OP[facility]) Antibody Screen NEG 7:31 PM [facility] DEVELOPMENT HEAD [facility] ABO Rh O POS 01/02/2025 7:31 PM [facility] Blood Bank BLOOD SPECIMEN / Unknown Venipuncture / Unknown 01/02/2025 6:32 PM [facility] 01/02/2025 6:45 PM [facility] DEVELOP[facility] HEAD us Jose Posada MD LAB - BLOOD BANK ORDERABLES Lisa l Result [facility] [address] [place] [address], [facility] [phone] * (ABNORMAL) COMPREHENSIVE METABOLIC PANEL (01/02/2025 6:32 PM [facility]OP[facility]) BUN 12 7 - 26 mg/dL 01/02/2025 7:06 PM [facility] Creatinine 0.50(L) 0.56 - 0.96 mg/dL 01/02/2025 7:06 PM [facility] Sodium 141 136 - 145 mmol/L 01/02/2025 7:06 PM [facility] Potassium 4.1 3.5 - 4.5 mmol/L 01/02/2025 7:06 PM [facility] Chloride 109(H) 98 - 107 mmol/L 01/02/2025 7:06 PM [facility] CO2 20(L) 22 - 29 mmol/L 01/02/2025 7:06 PM [facility] Glucose 145(H) 70 - 99 mg/dL 01/02/2025 7:06 PM [facility] Calcium 9.0 8.4 - 10.2 mg/dL 01/02/2025 7:06 PM [facility] Protein Total 7.1 6.0 - 8.3 g/dL 01/02/2025 7:06 PM [facility] Albumin 4.0 3.4 - 5.0 g/dL 01/02/2025 7:06 PM [facility] Bilirubin Total 1.9(H) 0.2 - 1.2 mg/dL 01/02/2025 7:06 PM [facility] Alkaline Phosphatase 138 40 - 150 U/L 01/02/2025 7:06 PM [facility] ALT 15 5 - 55 U/L 01/02/2025 7:06 PM [facility] AST 23 5 - 34 U/L 01/02/2025 7:06 PM [facility] Anion Gap 12 6 - 16 01/02/2025 7:06 PM [facility] BUN/Creatinine Ratio 24(H) 7 - 23 01/02/2025 7:06 PM [facility] Osmolality Calculated 294 275 - 295 mOsm/kg 01/02/2025 7:06 PM [facility] Albumin/Globulin Ratio 1.3 1.1 - 2.3 01/02/2025 7:06 PM [facility] eGFR by CKD-EPI >90 >=90 mL/min/1.7 3 m2 01/02/2025 7:06 PM [facility] Comment:Estimated Glomerular Filtration Rate (eGFR) calculated using the CKD-EPI Creatinine Equation (2020), per the National Kidney Foundation and [employer]ph[employer] recommendations. Blood BLOOD SPECIMEN / Unknown Venipuncture / Unknown 01/02/2025 6:32 PM [facility] 01/02/2025 6:39 PM [facility] Jose Posada MD LAB - CHEMISTRY ORDERABLES Final Result [facility] [address] [place] [address], [facility] [phone] from Last 3 Months Insurance [facility] SELF PAY NO INSURANCE Member Subscriber Plan / Payer (Ef fective for All Dates) Name:Marina Coronado Member ID:Not on file Relation to Subscriber:Not on file Name:MARINA CORONADO Subscriber ID:Not on file (Home) Address: [address] [place] [address] Payer ID:Not on file Group ID:Not on file Type:Self Pay Address: [place], [place] [facility] Advance Directives * Full Code (Latest Code Status on File) Date Activated Date Inactivated Comments 01/03/2025 2:33 AM 01/05/2025 2:48 PM Care 

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
--- OUTSIDE RECORDS SUMMARY | 2025-01-10 15:43 | XMS_ITS | Data Portability ---
Author Organization [facility] Address [address] [place] [address] Care Team Providers Care Commercial Lines Account Executive Name Role Phone ROWAN DIEGO Primary Care Provider Assessment Encounter Date Assessment Date Assessment LastModified by Organization Details LastModified Time 03/16/2024 03/16/2024 Annual gynecological exam performed. Patient will come back in a year unless there are new symptoms. [email or web address] Not available 03/16/2024 12:12:26 05/15/2024 05/15/2024 Annual gynecological exam performed. Patient will come back in a year unless there are new symptoms. [email or web address] Not available 05/15/2024 12:39:50 Plan of Treatment Reminders Order Date Submit Date Provider Last Modified By Organization Details Last Modified Time Details Appointments None recorded. Lab test, urine 2024 025 [facility], [address], [address], [place], [address], 13:52:20 surgical pathology study - ECC 2024 025 [facility] (Lab), [address], [place], [address], 09:48:42 pap, IG + HR HPV - HPV regardless but if HPV is positive need subtyping 16,18/45 Add STI testing to PAP GC/CT/Trich 2024 025 [facility] (Lab), [address], [place], [address], 19:16:19 Referral None recorded. Procedures None recorded. Surgeries None recorded. Imaging US, pelvis 2024 [address]25 [address], [address], [place], [address], 20:59:59 US, transvagina l 2024 [address], [address], [place], [address], 20:59:59 US, pelvis, complete 2024 [address]25 [address], [address], [place], [address], 18:22:59 MAMMO, screening, digital, bilateral [address] [facility], [address], [facility], [place], [address], 15:30:38 Medication Orders nystatin 100,000 unit/gram topical powder 2024 025 [id number], [address], [place], [id number], 14:12:01 Patient TargetsNo targets recorded. Patient InstructionsNo instructions recorded. Reason for Referral None Reported. Results Created Date Observation Date Name Description Value Unit Range Abnormal Flag Note LastModifiedBy Organization Detail LastModifiedTime 03/02/1903/02/2024 [facility], CARLEE bacterial vaginosis (bv), tma Negati ve negati ve Not Available [facility] (Lab) [address], [place], [address], 03/04/2024 14:05:23 03/02/19 25 03/02/2024 [facility] harper species, tma Negati ve negati ve Not Available [facility] (Lab) [address] [place], [address], 03/04/2024 14:05:23 03/02/19 25 03/02/2024 [facility] CARLEE harper glabrata, tma Negati ve negati ve Not Available [facility] (Lab) [address] [place], [address], 03/04/2024 14:05:23 03/02/19 25 03/02/2024 [facility] CARLEE trichomonas vaginalis, tma Positi ve negati ve abnormal Not Available [facility] (Lab) [address] [place], [address], 03/04/2024 14:05:23 03/02/19 25 03/02/2024 [facility] CARLEE chlamydia trachomatis, PCR Negati ve negati ve Not Available [facility] (Lab) [address] [place], [address], 03/04/2024 14:05:23 03/02/1903/02/2024 [facility], CARLEE neisseria gonorrhoeae, PCR [...] ded in this panel . Not Available [facility] (Lab) [address] [facility], [place], [address], 03/04/2024 14:05:23 05/16/19 25 05/15/2024 IMAGE GUIDE [...] as clini harvinder penn nted. Not Available [facility] (Lab) [address], [place], [address], 05/18/2024 19:16:19 05/16/19 25 05/15/2024 TRICH OMONA S VAGIN SENG (RRNA ) trichomonas vaginalis ribosomal RNA (rrna) Negati ve negati ve Not Available [facility] (Lab) [address], [place], [address], 05/18/2024 19:16:19 05/16/19 25 05/15/2024 CT/GC ([place]) , THINP REP VIAL chlamydia trachomatis, PCR Negati ve negati ve Not Available [facility] (Lab) [address] [facility], [place], [address], 05/18/2024 19:16:20 05/16/19 25 05/15/2024 CT/GC ([place]) , THINP REP VIAL neisseria gonorrhoeae, PCR Negati ve negati ve Not Available [facility] (Lab) [address] [facility], [place], [address], 05/18/2024 19:16:20 06/09/19 25 06/08/2024 SURGI CHRIS [...] ed by Stefany Abreu on Not Available [facility] (Lab) [address] [facility], [place], [address], 06/10/2024 09:48:42 06/09/19 25 06/08/2024 pregn ghada test, urine HCG negati ve Not Available [facility] [address], [place], [address], 06/08/2024 13:52:14 05/19/19 25 05/18/2024 US, pelvi s No observ ation record ed. [email or web address] [place] [address], [place], [address], 05/18/2024 13:57:44 05/19/19 25 05/18/2024 US, trans vagin al No observ ation record ed. [email or web address] [place] [address], [place], [address], 05/18/2024 13:57:59 05/19/19 25 05/18/2024 US, pelvi s No observ ation record ed. [address], [place], [address], 05/24/2024 18:44:27 05/30/19 25 05/25/2024 MAMMO , scree sonido, digit al, bilat eral No observ ation record ed. [address] [place], [address], 06/08/2024 18:22:29 06/07/19 25 05/25/2024 MAMMO , scree sonido, digit al, bilat eral No observ ation record ed. [address] [place], [address], 06/08/2024 18:22:30 Result Notes None recorded. Procedures Surgical History Date Name Laterality Status Provider Name and Address Organization Details Recorded Time 025 Endometrial Biopsy completed MAYE Crook [address], [place], [address], [facility] 06/08/2024 13:49:43 025 Endometrial Biopsy completed Ryann Rosado [facility] 07/31/2024 12:02:38 025 Date of Last Pap Smear completed [facility] 06/08/2024 12:04:53 022 Date of Last Colonoscopy completed [facility] 03/02/2024 12:22:39 994 ligation of fallopian tube completed [facility] 03/02/2024 12:24:36 994 section completed [facility] 03/02/2024 12:28:17 992 section [facility] 03/02/2024 12:28:13 990 section completed [facility] 03/02/2024 12:28:06 Gastric bypass for obesity completed [facility] 03/02/2024 12:04:48 Cholecystectomy completed [facility] 03/02/2024 12:25:02 Removal of tonsils completed MAYE Crook [address], [place], [address], [facility] 03/02/2024 12:36:04 Imaging Results None recorded. Procedure Notes None recorded. Medical Equipment None Reported. Allergies Allergen ID Allergen Name Allergen Category Reaction Reaction Severity Criticality Documentation Date Start Date Code Code System Note Provider Name and Address Organization Details Recorded Time 12989 cyclobenz aprine hydrochlo ride medicatio n Not available Not available Not available 03/02/2024 87672 RxNorm [facility] 12:19:55 Medications Name Sig Start Date [...] Updated DateTime 03/16/2024 152.4 cm 31.4 kg/m2 47189.37 g 131/81 mm[Hg] EVELIO Sadaf [facility] 03/16/2024 12:12:57 Date Recorded Body height Body mass index (BMI) Body weight Systolic And Diastolic Provider Name and Address Organization Details Last Updated DateTime 05/15/2024 152.4 cm 32 kg/m2 21409.71 g 122/79 mm[Hg] [facility] 05/15/2024 12:40:27 Date Recorded Body height Body mass index (BMI) Body weight Systolic And Diastolic Provider Name and Address Organization Details Last Updated DateTime 06/08/2024 152.4 cm 32 kg/m2 24851.71 g 168/106 mm[Hg] [facility] 06/08/2024 12:51:52 Date Recorded Body height Body mass index (BMI) Body weight Systolic And Diastolic Provider Name and Address Organization Details Last Updated DateTime 07/31/2024 152.4 cm 31.2 kg/m2 63002.78 g 106/69 mm[Hg] Ryann Alonzo [facility] 07/31/2024 12:00:54 Social History Question Answer Notes LastModified by Organizat ion Details LastModified Time Tobacco Smoking Status Never Smoker EVELIO Talavera gemini, [facility] 03/16/2024 12:13:54 Are You Blind Or Do You Have Difficulty Seeing? No [email or web address] Information n ot available 03/16/2024 What Is Your Level Of Caffeine Consumption? Occasional [email or web address] Information not available 06/08/2024 In The 14 Days Before Symptom Onset, Have You Had Close Contact With A Laboratory-confirm ed COVID-19 While That Case Was Ill? No Information n ot available 03/16/2024 In The 14 Days Before Symptom Onset, Have You Had Close Contact With A Person Who Is Under Investigation For COVID-19 While That Person Was Ill? No [email or web address] Information not available 03/16/2024 Have You Been To An Area Known To Be High Risk For COVID-19? No Information not available 03/16/2024 Are You Deaf Or Do You Have Serious Difficulty Hearing? No [email or web address] Information not available 03/16/2024 What Type Of Diet Are You Following? REGULAR [email or web address] Information n ot available 06/08/2024 What Is The Highest Grade Or Level Of School You Have Completed Or The Highest Degree You Have Received? [id number] Information not available 06/08/2024 Are There Any Guns Present In Your Home? No [email or web address] Information not available 03/16/2024 Do You Use Protection During Sex? Usually [email or web address] Information not available 06/08/2024 Do You Use Your Seat Belt Or Car Seat Routinely? Yes [email or web address] Information not available 06/08/2024 Are You Sexually Active? No [email or web address] Information not available 03/16/2024 Do You Have Smoke And Carbon Monoxide Detectors In Your Home? Yes [email or web address] Information not available 03/16/2024 How Much Tobacco Do You Smoke? 3+ PPD [email or web address] Information not available 06/08/2024 Do You Use Sunscreen Routinely? Yes [email or web address] Information not available 06/08/2024 Has Tobacco Cessation Counseling Been Provided? No [email or web address] Information not available 03/16/2024 Have You Used IV Drugs? No [email or web address] Information not available 06/08/2024 Do You Have Difficulty Walking Or Climbing Stairs? No [email or web address] Information not available 03/16/2024 Sex: Unknown Functional Status Question Answer Note LastModified by Organizat ion Details LastModified Time Do you use any illicit or recreational drugs? No Information not available 03/16/2024 Do you or have you ever used any other forms of tobacco or nicotine? No [email or web address] Information not available 03/16/2024 What is your level of alcohol consumption? None Information not available 06/08/2024 Are you currently employed? No [email or web address] Information not available 03/16/2024 Are you able to walk independently without assistance or assistive devices? YESWOREST [email or web address] Information not available 03/16/2024 Are you able to care for yourself independently? Yes Information not available 03/16/2024 Do you have difficulty dressing, bathing, grooming, or toileting? No [email or web address] Information not available 03/16/2024 What is your exercise level? None [email or web address] Information not available 06/08/2024 Mental Status None recorded. Family History Relationship Description Onset Age of this Age Resolved Age Notes LastModified by Organization Details LastModified Time Father Heart disease [email or web address] Not available 2024 12:06:57 Father Hypercholest erolemia [email or web address] Not available 2024 12:07:17 Father Hypertensive disorder [email or web address] Not available 2024 12:07:33 Mother Hypercholest erolemia [email or web address] Not available 2024 12:07:17 Mother Hypertensive disorder [email or web address] Not available 2024 12:07:33 Mother Disorder of thyroid gland [email or web address] Not available 2024 12:07:50 Medical History Condition Response Allergies (Food, seasonal, environmental ) N Other Y Breast Cancer N Drug/Latex Allergies/Reactions N Blood Transfusion N Dermatologic Disorders N Lung Disease N [...] ICD10 Code Diagnosis IMO Codes Diagnosis Note [id number] MAYE Crook [place] [address] [address] 03/02/2024 11:53:56 03/02/2024 14:17:23 Vulval irritation 649069392 N90.89 Health hx obtained and reviewed todayVulva [...] counseling and review of plan of care. [id number] VESNA CrookALHAJI [place] [address] [address] 03/16/2024 12:03:52 03/16/2024 13:24:14 Infection by Trichomonas 20230940 A59.9 Discussed (+) trichomona s result with [...] counseling and review of plan of care. [id number] MAYE Crook [place] [address] [address] 05/15/2024 12:33:30 05/15/2024 15:36:33 Gynecologic examination 56681543 Z01.419 WWEPap - done todaySTI screen - [...] have been answered. Venereal d isease screening 274750149 Z11.3 Screening for malignant neoplasm of breast 671373460 Z12.39 Postmenopa usal bleeding 01953255 N95.0 discussed possible PMB and recommende d updated pelvic u/swill update pt with results when available and discuss next steps/doc mmendation s [id number] Manuel Julian MD [place] [address] [address] 05/18/2024 10:59:04 05/18/2024 13:31:25 Postmenopausal bleeding 97004204 N95.0 [id number] Fariha GaxiolaMAYE [place] [address] [address] 06/08/2024 11:50:21 06/08/2024 15:06:40 Postmenopausal bleeding 62702001 N95.0 EMB attempted, discontinu ed d/t pt [...] notify her PCP. ED precaution s discussed [id number] Manuel Julian MD [place] [address] [address] 07/31/2024 11:03:03 07/31/2024 12:33:07 Postmenopausal bleeding 53739757 N95.0 [id number] this patient is a 54-year-ol d female [...] Vela Member ID Guarantor Name 09/19/2024 1 [facility] - DOS ON OR AFTER 20 (MEDICAID REPLACEMENT - HMO) Marina Coronado [id number] Marina Coronado Notes Date Note Type Note Provider Name and Address Organization Details Recorded Time 5 text/html 53yopresents for WWEwas seen in office 03/02/2024 for vaginal symptoms(+) trichomonas on vaginitis panel done 03/02/2024our office has been attempting to contact pt by phone/portal/letter to discuss results, have been unable to reach her MAYE Crook [address], [place], [address], [facility] 03/16/2024 13:23:11 5 text/html Annual GYNReported [...] also treated MAYE Crook [address], [place], [address], [facility] 05/15/2024 15:33:10 5 text/html 54yopresents for EMB for further evaluation of PMB complaining of a rash under pannus that comes and goes MAYE Crook [address], [place], [address], [facility] 06/08/2024 14:53:38 5 text/html this patient [...] infection. Manuel Julian MD [address], [place], [address], [facility] 07/31/2024 12:30:47 OBGyn Episode Ob Episode Information Episode Created Date Number of Fetuses Patient Bloodtype Patient rh Status Prepregnancy Weight lbs Domestic Partner Domestic Partner Phone Father Name Gunnery/Ordnance Officer Status 03/02/19 25 1 CLOSED Fetus Data First Name Last Name Admitted to NICU Weight (g) Sex Living Outcome Pediatric Complications Fetus ID Race Codes Race Delivery Type F Full Term [id number] Repeat Artemio Calculation Initial Artemio Date Initial [...] Domestic Partner Domestic Partner Phone Father Name Gunnery/Ordnance Officer Status 03/02/19 25 1 CLOSED Fetus Data First Name Last Name Admitted to NICU Weight (g) Sex Living Outcome Pediatric Complications Fetus ID Race Codes Race Delivery Type F Full Term [id number] Primary Artemio Calculation Initial Artemio Date Initial [...] Domestic Partner Domestic Partner Phone Father Name Gunnery/Ordnance Officer Status 03/02/19 25 1 CLOSED Fetus Data First Name Last Name Admitted to NICU Weight (g) Sex Living Outcome Pediatric Complications Fetus ID Race Codes Race Delivery Type M Full Term [id number] Repeat Artemio Calculation Initial Artemio Date Initial [...]
--- OUTSIDE RECORDS SUMMARY | 2025-01-10 15:43 | XMS_ITS | Clinical Summary ---
Author Organization [facility] Care Team Providers Care Insulation Machine Operator Name Role Phone Unavailable Primary Care Provider Unavailabl e Encounters Date Type Department Care Team Description 12/25/2024 Telephone [facility] [place] [address] Yemi Hirsch, MAIL MANAGER, STRUCTURAL RIGGER from Last 3 Months Social History Tobacco Use Types Packs/Day Years Used Date Smoking Tobacco: Never Assessed Comments Unknown Sex and Gender Information Value Date Recorded Sex Assigned at Not on file Legal Sex Female 10:56 PM CDT Gender Identity Not on file Sexual Orientation Not on file Plan of Treatment Health Maintenance Due Date Last Done Comments Hepatitis C Virus (HCV) Screening 1971 Mammogram 1971 TdaP Immunization 1971 Hepatitis B Immunization (1 of 3 - 19+ 3-dose series) 1990 Pap Smear 1992 Cervical Cancer Screening (CCS) 2001 HPV/Cotest 2001 Cologuard 2016 Colonoscopy 2016 Colorectal Cancer Screening 2016 Immunochemical Fecal Occult Blood 2016 Pneumococcal Immunization (5 0+ years) (1 of 1 - PCV) 2021 Zoster Immunization (1 of 2) 2021 Influenza Immunization (#1) 2024 SARS-COV-2 Immunization ( - 2024- season) 2024 Respiratory Syncytial Virus (RSV) Immunization (Adult) (1 - 1-dose 75+ series) 2046 Human Papillomavirus (HPV) Immunization Aged Out No longer eligible b ased on patient's age to complete this topic Meningococcal Immunization (ACWY) Aged Out No longer eligible based on patient's age to complete this topic Rotavirus Immunization Aged Out No lo nger eligible based on patient's age to complete this topic
--- OUTSIDE RECORDS SUMMARY | 2025-01-10 16:07 | XMS_ITS | Clinical Summary ---
Author Organization [facility] Address [address] [place] [address] Care Team Providers Care Hog Raiser Name Role Phone Khanh Altamirano MD Primary Care Provider [phone] Source Comments [facility],non-owned Affiliates and Associated Physician Practices is amultiple site organization consisting of ambulatory clinics and hospital sitesin [place], [place], [place] and [place]. This disclosure is being madepursuant to the Care Everywhere program and may not contain all information available regarding this patient. Last updated 17.[facility] Allergies Active Allergy Reactions Criticality Noted Date [...] by mouth once daily Active nystatin (Mycostatin) 299824 UNIT/GM powder Apply to affected area 2 [...] days 30 tablet 1 01/05/2025 12:08 PM CONTRACT LEAD 01/07/20 25 026 Active sennosides (Senokot) 8.6 MG tablet Take 1 (one) tablet by mouth once daily as needed for Constipation 14 tablet 01/05/2025 12:08 PM CONTRACT LEAD 01/06/20 25 Active polyethylene glycol 3350 (Miralax) 17 GM/SCOOP powder Take 17 (seventeen) g by mouth once daily as needed for Constipation 238 g 01/05/2025 12:08 PM CONTRACT LEAD 01/06/20 25 Active acetaminophen (Tylenol) 500 MG [...] as needed 12 tablet 01/05/2025 12:08 PM CONTRACT LEAD 01/06/20 25 Active sulfamethoxazo le-trimethopri m (Bactrim DS; Septra DS) 800-160 MG tabletIndicati ons:Animal Bite Infection Take 1 (one) tablet by mouth 2 times daily for 14 days Reasons: Infected Animal Bite 28 tablet 01/05/2025 12:08 PM CONTRACT LEAD 01/06/20 25 025 Active HYDROcodone-ac etaminophen ([place]) 5-325 MG tablet Take 1 (one) tablet by mouth 2 times daily 12/26/19 025 Discontin ued(List Clean-Up) escitalopram (Lexapro) 10 MG tablet Take 1 (one) tablet by mouth once daily 09/21/19 025 Discontin ued(List Clean-Up) Active Problems Problem Noted Date Diagnosed Date Trauma 01/03/2025 Assessment & Plan (01/05/2025 10:25 AM CONTRACT LEAD): -CT cervical spine/ CT head wo cont [...] oxycodone Assessment & Plan (01/04/2025 11:20 AM CONTRACT LEAD): -CT cervical spine/ CT head wo cont [...] to Assessment & Plan (01/03/2025 3:54 AM CONTRACT LEAD): - Hemodynamically stable, afebrile; CBC/BMP nr; sp [...] in ED. -Received tetanus booster/ Abx at [facility]. PLAN: -NPO for now (anticipated in [...] 01/03/2025 Assessment & Plan (01/05/2025 10:25 AM CONTRACT LEAD): -CT cervical spine/ CT head wo cont [...] oxycodone Assessment & Plan (01/04/2025 11:20 AM CONTRACT LEAD): -CT cervical spine/ CT head wo cont [...] to Assessment & Plan (01/03/2025 3:54 AM CONTRACT LEAD): - Hemodynamically stable, afebrile; CBC/BMP nr; sp [...] in ED. -Received tetanus booster/ Abx at [facility]. PLAN: -NPO for now (anticipated in [...] 03/05/2024 Assessment & Plan (01/05/2025 10:25 AM CONTRACT LEAD): -CT cervical spine/ CT head wo cont [...] oxycodone Assessment & Plan (01/04/2025 11:20 AM CONTRACT LEAD): -CT cervical spine/ CT head wo cont [...] to Assessment & Plan (01/03/2025 3:54 AM CONTRACT LEAD): - Hemodynamically stable, afebrile; CBC/BMP nr; sp [...] in ED. -Received tetanus booster/ Abx at [facility]. PLAN: -NPO for now (anticipated in [...] 01/03/2025 Assessment & Plan (01/05/2025 10:25 AM CONTRACT LEAD): - CHFpEF ( TTE 08/2022 EF 72%), CAD ( s/p cath/ stent LAD 2022) PLAN: -ASA 81 mg PO d -ezetimibe 10 mg PO d not on formulary -Losartan 50 mg p.o. daily, Coreg 12.5 mg p.o. bid, Spironolactone 25 mg QD -Lasix 20 mg p.o. daily Assessment & Plan (01/04/2025 11:20 AM CONTRACT LEAD): - CHFpEF ( TTE 08/2022 EF 72%), CAD ( s/p cath/ stent LAD 2022) PLAN: -ASA 81 mg PO d -hold for now -ezetimibe 10 mg PO d not on formulary -Losartan 50 mg p.o. daily, Coreg 12.5 mg p.o. bid, Spironolactone 25 mg QD -hold Lasix 20 mg p.o. daily Assessment & Plan (01/03/2025 3:54 AM CONTRACT LEAD): - CHFpEF ( TTE 08/2022 EF 72%), [...] 01/03/2025 Assessment & Plan (01/05/2025 10:25 AM CONTRACT LEAD): - CHFpEF ( TTE 08/2022 EF 72%), CAD ( s/p cath/ stent LAD 2022) PLAN: -ASA 81 mg PO d -ezetimibe 10 mg PO d not on formulary -Losartan 50 mg p.o. daily, Coreg 12.5 mg p.o. bid, Spironolactone 25 mg QD -Lasix 20 mg p.o. daily Assessment & Plan (01/04/2025 11:20 AM CONTRACT LEAD): - CHFpEF ( TTE 08/2022 EF 72%), CAD ( s/p cath/ stent LAD 2022) PLAN: -ASA 81 mg PO d -hold for now -ezetimibe 10 mg PO d not on formulary -Losartan 50 mg p.o. daily, Coreg 12.5 mg p.o. bid, Spironolactone 25 mg QD -hold Lasix 20 mg p.o. daily Assessment & Plan (01/03/2025 3:54 AM CONTRACT LEAD): - CHFpEF ( TTE 08/2022 EF 72%), [...] 01/03/2025 Assessment & Plan (01/05/2025 10:25 AM CONTRACT LEAD): - CHFpEF ( TTE 08/2022 EF 72%), CAD ( s/p cath/ stent LAD 2022) PLAN: -ASA 81 mg PO d -ezetimibe 10 mg PO d not on formulary -Losartan 50 mg p.o. daily, Coreg 12.5 mg p.o. bid, Spironolactone 25 mg QD -Lasix 20 mg p.o. daily Assessment & Plan (01/04/2025 11:20 AM CONTRACT LEAD): - CHFpEF ( TTE 08/2022 EF 72%), CAD ( s/p cath/ stent LAD 2022) PLAN: -ASA 81 mg PO d -hold for now -ezetimibe 10 mg PO d not on formulary -Losartan 50 mg p.o. daily, Coreg 12.5 mg p.o. bid, Spironolactone 25 mg QD -hold Lasix 20 mg p.o. daily Assessment & Plan (01/03/2025 3:54 AM CONTRACT LEAD): - CHFpEF ( TTE 08/2022 EF 72%), [...] 01/03/2025 Assessment & Plan (01/05/2025 10:25 AM CONTRACT LEAD): -A1c 5.8 -follow up outpatient Assessment & Plan (01/04/2025 11:20 AM CONTRACT LEAD): -A1c 5.8 -accucheck + SSI Assessment & Plan (01/03/2025 3:54 AM CONTRACT LEAD): -FSBG q6h w SSL ( while NPO) -Hypoglycemic protocol -A1c Bipolar disorder 01/03/2025 Assessment & Plan (01/05/2025 10:25 AM CONTRACT LEAD): -Bupropion 150 mg p.o. daily -Trazodone 50 mg p.o. daily as needed Assessment & Plan (01/04/2025 7:42 AM CONTRACT LEAD): -Bupropion 150 mg p.o. daily -Trazodone 50 mg p.o. daily as needed Assessment & Plan (01/03/2025 3:54 AM CONTRACT LEAD): -Bupropion 150 mg p.o. daily -Trazodone 50 mg p.o. daily as needed Depression 01/03/2025 Assessment & Plan (01/05/2025 10:25 AM CONTRACT LEAD): -Bupropion 150 mg p.o. daily -Trazodone 50 mg p.o. daily as needed Assessment & Plan (01/04/2025 7:42 AM CONTRACT LEAD): -Bupropion 150 mg p.o. daily -Trazodone 50 mg p.o. daily as needed Assessment & Plan (01/03/2025 3:54 AM CONTRACT LEAD): -Bupropion 150 mg p.o. daily -Trazodone 50 mg p.o. daily as needed Cirrhosis 01/03/2025 Assessment & Plan (01/05/2025 10:25 AM CONTRACT LEAD): - Compensated cirrhosis (no ascites, encephalopathy, jaundice, or GI bleeding) Cont home: Spironolactone 25 mg p.o. daily Lasix - follow up outpatient Assessment & Plan (01/04/2025 11:20 AM CONTRACT LEAD): - Compensated cirrhosis (no ascites, encephalopathy, jaundice, or GI bleeding), MELD Na score 11, Child -Mcgowan score A Cont home: Spironolactone 25 mg p.o. daily - hold Lasix 20 mg p.o. daily -Referral outpatient follow-up- Assessment & Plan (01/03/2025 3:54 AM CONTRACT LEAD): - Compensated cirrhosis (no ascites, encephalopathy, jaundice, or GI bleeding), MELD Na score 11, Child -Mcgowan score A Cont home : -Coreg 12.5 mg p.o. twice daily -Spironolactone 25 mg p.o. daily -Lasix 20 mg p.o. daily -trend PT-INR/ CBC/ BMP/ UA lytes -Referral outpatient follow-up- Encounters Date Type Department Care Team Description 01/03/2025 12:50 PM CONTRACT LEAD Anesthesia Event [facility] [address] [place] [address] Poncho Abdul II, MD Staheli, Jonathan, DO 01/03/2025 12:44 PM CONTRACT LEAD - 01/03/2025 2:14 PM CONTRACT LEAD Surgery [facility] [address] [place] [id number] Krystin Martin MD IRRIGATION AND DEBRIDEMENT LEFT FOREARM 01/02/2025 5:43 PM CONTRACT LEAD - 01/05/2025 1:47 PM CONTRACT LEAD Hospital Encounter [facility] [address] [place] [address] Jose Posada MD El Sharkh, Hadil, MD [...] medical care, and heating? Somewhat hard 01/03/2025 [facility] [place] [facility] - Occupational Stress [...] any time in the past 12 m [facility], were you homeless or living in a penitentiary (including now)? No 01/03/2025 Comments No Sex and Gender Information Value Date Recorded Sex Assigned at Not on file Legal Sex Female 6:23 PM CONTRACT LEAD Gender Identity Not on file Sexual Orientation Not on file Last Filed Vital Signs Vital Sign Reading Time Taken Comments Blood Pressure 123/77 01/05/2025 6:35 AM CONTRACT LEAD Pulse 70 01/05/2025 6:35 AM CONTRACT LEAD Temperature 36.9 C (98.4 F) 01/05/2025 6:35 AM CONTRACT LEAD Respiratory Rate 18 01/05/2025 6:35 AM CONTRACT LEAD Oxygen Saturation 96% 01/05/2025 6:35 AM CONTRACT LEAD Inhaled Oxygen Concentration 40% 01/03/2025 3 :05 PM CONTRACT LEAD Weight 70.9 kg (156 lb 3.2 oz) 01/05/2025 6:35 A M CONTRACT LEAD Height 152.4 cm (5') 01/03/2025 4:26 PM CONTRACT LEAD Body Mass Index 30.51 01/03/2025 4:26 PM CONTRACT LEAD Plan of Treatment Upcoming Encounters Date Type Department Care Team (Late st Contact Info) Description 01/19/2025 9:00 AM CONTRACT LEAD Office Visit [facility] - Orthopedic Surgery [address] [place] [phone] Krystin Martin MD [address] [place] [phone] Health Maintenance Due Date Last Done Comments [...] POINT OF CARE Routine 01/05/2025 12:24 PM CONTRACT LEAD GLUCOSE - POINT OF CARE Routine 01/05/2025 7:31 AM CONTRACT LEAD GLUCOSE - POINT OF CARE Routine 01/04/2025 5:16 PM CONTRACT LEAD GLUCOSE - POINT OF CARE Routine 01/04/2025 11:59 AM CONTRACT LEAD GLUCOSE - POINT OF CARE Routine 01/04/2025 7:51 AM CONTRACT LEAD LYTES (NA K) URINE RANDOM PANEL STAT 01/04/2025 6:01 AM CONTRACT LEAD URINE DRUG SCREEN IMMUNOASSAY STAT 01/04/2025 6:01 AM CONTRACT LEAD PHOSPHORUS BLOOD Routine 01/04/2025 5:37 AM CONTRACT LEAD MAGNESIUM BLOOD Routine 01/04/2025 5:37 AM CONTRACT LEAD BASIC METABOLIC PANEL (CALCIUM TOTAL) AM Draw 01/04/2025 5:37 AM CONTRACT LEAD CBC W AUTO DIFFERENTIAL AM Draw 01/04/2025 5:37 AM CONTRACT LEAD GLUCOSE - POINT OF CARE Routine 01/04/2025 5:13 AM CONTRACT LEAD OT EVAL AND TREAT Routine 01/04/2025 5:0 0 AM CONTRACT LEAD PT EVAL AND TREAT Routine 01/04/2025 5:0 0 AM CONTRACT LEAD GLUCOSE - POINT OF CARE Routine 01/03/2025 11:39 PM CONTRACT LEAD GLUCOSE - POINT OF CARE Routine 01/03/2025 4:47 PM CONTRACT LEAD LARYNGEAL MASK AIRWAY Routine 01/03/2025 1:24 PM CONTRACT LEAD FL MORIAH BONE 20 SQ CM/< 01/03/2025 12:54 PM CONTRACT LEAD Type I or II open fracture of proximal end of left radius, unspecified fracture morphology, initial encounter GLUCOSE - POINT OF CARE Routine 01/03/2025 8:28 AM CONTRACT LEAD VITAMIN D 25-HYDROXY SUNDEEP 01/03/2025 6:06 AM CONTRACT LEAD TROPONIN-I HIGH SENSITIVE STAT 01/03/2025 3:35 AM CONTRACT LEAD HEMOGLOBIN A1C SUNDEEP 01/03/2025 3:35 AM CONTRACT LEAD NT-PRO BNP STAT 01/03/2025 3:35 AM CONTRACT LEAD PHOSPHORUS BLOOD STAT 01/03/2025 3:35 AM CONTRACT LEAD MAGNESIUM BLOOD STAT 01/03/2025 3:35 AM CONTRACT LEAD CBC W/O DIFFERENTIAL STAT 01/03/2025 3:35 AM CONTRACT LEAD BASIC METABOLIC PANEL (CALCIUM TOTAL) STAT 01/03/2025 3:35 AM CONTRACT LEAD LACTIC ACID BLOOD STAT 01/03/2025 3:3 5 AM CONTRACT LEAD BLOOD TYPE VERIFICATION STAT 01/03/2025 3:34 AM CONTRACT LEAD PT-INR STAT 01/03/2025 3:30 AM CONTRACT LEAD EKG 12-LEAD STAT 01/03/2025 3:22 AM CONTRACT LEAD Trauma Dog bite, initial encounter Open fracture of left wrist, initial encounter Type 2 diabetes mellitus without complication in remission CT CERVICAL SPINE WO CONTRAST STAT 01/02/2025 9:11 PM CONTRACT LEAD Trauma CT HEAD WO CONTRAST STAT 01/02/2025 9 :11 PM CONTRACT LEAD Trauma XR ANKLE RIGHT 3VW OR MORE STAT 01/02/2025 7:25 PM CONTRACT LEAD Trauma XR ANKLE LEFT 3VW OR MORE STAT 01/02/2025 7:25 PM CONTRACT LEAD Trauma XR HUMERUS LEFT 2VW OR MORE STAT 01/02/2025 7:25 PM CONTRACT LEAD Trauma XR ELBOW LEFT 3VW OR MORE STAT 01/02/2025 7:24 PM CONTRACT LEAD Trauma XR SHOULDER LEFT 2VW OR MORE STAT 01/02/2025 7:24 PM CONTRACT LEAD Trauma XR HAND LEFT 3VW OR MORE STAT 01/02/2025 7:24 PM CONTRACT LEAD Trauma XR WRIST LEFT 3VW OR MORE STAT 01/02/2025 7:24 PM CONTRACT LEAD Trauma XR FOREARM LEFT 2VW OR MORE STAT 01/02/2025 7:22 PM CONTRACT LEAD Trauma TYPE + SCREEN PANEL STAT 01/02/2025 6 :32 PM CONTRACT LEAD COMPREHENSIVE METABOLIC PANEL STAT 01/02/2025 6:32 PM CONTRACT LEAD CBC W AUTO DIFFERENTIAL STAT 01/02/2025 6:32 PM CONTRACT LEAD from Last 3 Months Results * (ABNORMAL) GLUCOSE - POINT OF CARE (01/05/2025 12:24 PM CONTRACT LEAD) Only the most recent of9 resultswithin the time period is included. Glucose WB/POC 222(H) 70 - 99 mg/dL 01/05/2025 12:25 PM CONTRACT LEAD [facility] Specimen Type Arterial/C apillary 01/05/2025 12:25 PM CONTRACT LEAD [facility] Blood BLOOD SPECIMEN / Unknown 01/05/2025 12:24 PM CONTRACT LEAD 01/05/2025 12:25 PM [facility] Gopal Jasso MD LAB - POINT OF CARE ORDERABLES Final Result [facility] [address] [place] [address], [place] [phone] * (ABNORMAL) URINE DRUG SCREEN IMMUNOASSAY (01/04/2025 6:01 AM [facility]) Pathologist [facility] Amphetamines Screen Urine Positive(A) Negative : < 1000 ng/mL 01/04/2025 7:16 AM [facility] Comment: Positive urine amphetamine screening results should be confirmed by another generally accepted non-immunological method such as gas chromatography or mass spectrometry. Barbiturates Screen Urine Negative Negative : < 200 ng/mL 01/04/2025 7:16 AM [facility] Benzodiazepine Screen Urine Negative Negative : < 200 ng/mL 01/04/2025 7:16 AM [facility] Opiates Urine Positive(A) Negative : < 300 ng/mL 01/04/2025 7:16 AM [facility] Comment:Positive urine opiat e screening results should be confirmed by another generally accepted non-immunological method such as gas chromatography or mass spectrometry. Cocaine Metabolites Urine Negative Negative : < 300 ng/mL 01/04/2025 7:16 AM [facility] Phencyclidine Screen Urine Negative Negative : < 25 ng/ml 01/04/2025 7:16 AM [facility] Cannabinoids Screen Urine Negative Negative : <50 ng/mL 01/04/2025 7:16 AM [facility] Methadone Screen Urine Negative Negative : < 300 ng/mL 01/04/2025 7:16 AM [facility] Fentanyl Screen Urine Positive(A) Negative : <1.5 ng/mL 01/04/2025 7:16 AM [facility] Comment:Positive urine fenta nyl screening results should be confirmed by another generally accepted non-immunological method such as gas chromatography or mass spectrometry. Urine URINE / Unknown Collection / Unknown 01/04/2025 6:01 AM CONTRACT LEAD 01/04/2025 6:52 AM CONTRACT LEAD Narrative [facility] - 01/04/2025 7:16 AM CONTRACT LEAD The Urine Toxicology Screening Panel does not screen for Propoxyphene, Meprobamate, Carisoprodol, Trazodone, ibkb-htm-oryswfa medications and/or volatiles (Acetone, Isopropanol, Methanol or Ethylene Glycol). Ethanol, Salicylate, Acetaminophen, Tricyclic Antidepressants and several therapeutic drugs may be individually assayed in serum or plasma specimen. Toxicology testing by the [facility] is an aid to medical diagnosis and treatment of patients. No documented chain of custody was maintained. Results are intended to be used for clinical purposes only. Jeniffer Goldstein [facility] - URINE CHEMISTRY OR DERABLES Final Result Performing Organization Address City/[facility]/ZIP Co de Phone Number [address] [address], [place] [phone] * LYTES (NA K) URINE RANDOM PANEL (01/04/2025 6:01 AM [facility]) Sodium Urine 64 Not Established mmol/L 01/04/2025 7:10 AM [facility] Potassium Urine 47.4 Not Established mmol/L 01/04/2025 7:10 AM [facility] Urine URINE SPECIMEN OBTAINED BY CLEAN CATCH PROCEDURE / Unknown Collection / Unknown 01/04/2025 6:01 AM CONTRACT LEAD 01/04/2025 6:52 AM CONTRACT LEAD [facility]stein [facility] - URINE CHEMISTRY OR DERABLES Final Result [address] [address], [place] [phone] * (ABNORMAL) CBC W AUTO DIFFERENTIAL (01/04/2025 5:37 AM [facility]) Only the most recent of2 resultswithin the time period is included. WBC 7.2 4.0 - 10.7 x10E9/L 01/04/2025 7:29 AM [facility] RBC Count 3.73(L) 3.90 - 5.20 x10E12/L 01/04/2025 7:29 AM [facility] Hemoglobin 10.9(L) 11.9 - 15.8 g/dL 01/04/2025 7:29 AM [facility] Hematocrit 32.9(L) 34.8 - 46.1 % 01/04/2025 7:29 AM [facility] MCV 88.2 80.0 - 98.0 fL 01/04/2025 7:29 AM [facility] MCH 29.2 26.7 - 33.6 pg 01/04/2025 7:29 AM [facility] MCHC 33.1 31.7 - 36.3 g/dL 01/04/2025 7:29 AM [facility] RDW-CV 13.4 11.3 - 14.8 % 01/04/2025 7:29 AM [facility] Platelet Count 189 150 - 420 x10E9/L 01/04/2025 7:29 AM [facility] MPV 11.2 7.8 - 11.4 fL 01/04/2025 7:29 AM [facility] Neutrophil % 77.7(H) 41.0 - 74.0 % 01/04/2025 7:29 AM [facility] Lymphocyte % 13.2(L) 17.0 - 47.0 % 01/04/2025 7:29 AM [facility] Monocyte % 8.7 3.0 - 11.0 % 01/04/2025 7:29 AM [facility] Eosinophil % 0.0 0.0 - 7.0 % 01/04/2025 7:29 AM [facility] Basophil % 0.3 0.0 - 1.6 % 01/04/2025 7:29 AM [facility] Immature Granulocytes % 0.1 0.0 - 1.0 % 01/04/2025 7:29 AM [facility] Neutrophil Absolute 5.61 1.60 - 7.50 x10E9/L 01/04/2025 7:29 AM [facility] Lymphocyte Absolute 0.95(L) 1.00 - 4.40 x10E9/L 01/04/2025 7:29 AM [facility] Monocyte Absolute 0.63 0.15 - 1.00 x10E9/L 01/04/2025 7:29 AM [facility] Eosinophil Absolute 0.00 0.00 - 0.60 x10E9/L 01/04/2025 7:29 AM [facility] Basophil Absolute 0.02 0.00 - 0.13 x10E9/L 01/04/2025 7:29 AM [facility] Blood BLOOD SPECIMEN / Unknown Lab Venipuncture / Unknown 01/04/2025 5:37 AM CONTRACT LEAD 01/04/2025 7:03 AM [facility] us Ashlee Coy MD LAB - HEMATOLOGY ORDERABLES Lisa castro Result [place] [id number] [place] [address], [place] [phone] * (ABNORMAL) BASIC METABOLIC PANEL (CALCIUM TOTAL) (01/04/2025 5:37 AM [facility]) Only the most recent of2 resultswithin the time period is included. BUN 7 7 - 26 mg/dL 01/04/2025 7:37 AM [facility] Creatinine 0.53(L) 0.56 - 0.96 mg/dL 01/04/2025 7:37 AM [facility] Sodium 139 136 - 145 mmol/L 01/04/2025 7:37 AM [facility] Potassium 4.1 3.5 - 4.5 mmol/L 01/04/2025 7:37 AM [facility] Chloride 105 98 - 107 mmol/L 01/04/2025 7:37 AM [facility] CO2 24 22 - 29 mmol/L 01/04/2025 7:37 AM [facility] Glucose 147(H) 70 - 99 mg/dL 01/04/2025 7:37 AM [facility] Calcium 8.9 8.4 - 10.2 mg/dL 01/04/2025 7:37 AM [facility] Anion Gap 10 6 - 16 01/04/2025 7:37 AM [facility] BUN/Creatinine Ratio 13 7 - 23 01/04/2025 7:37 AM [facility] Osmolality Calculated 289 275 - 295 mOsm/kg 01/04/2025 7:37 AM [facility] eGFR by CKD-EPI >90 >=90 mL/min/1.7 3 m2 01/04/2025 7:37 AM [facility] Comment:Estimated Glomerular Filtration Rate (eGFR) calculated using the CKD-EPI Creatinine Equation (2020), per the National Kidney Foundation and [place] Society of Nephrology recommendations. Blood BLOOD SPECIMEN / Unknown Lab Venipuncture / Unknown 01/04/2025 5:37 AM CONTRACT LEAD 01/04/2025 6:53 AM CONTRACT LEAD Ashlee Coy MD LAB - CHEMISTRY ORDERABLES Final Result [address] [address], [place] [phone] * PHOSPHORUS BLOOD (01/04/2025 5:37 AM CONTRACT LEAD) Only the most recent of2 resultswithin the time period is included. Phosphorus 3.4 2.9 - 5.1 mg/dL 01/04/2025 7:37 AM [facility] Blood BLOOD SPECIMEN / Unknown Lab Venipuncture / Unknown 01/04/2025 5:37 AM CONTRACT LEAD 01/04/2025 6:53 AM CONTRACT LEAD us Ashlee Coy MD LAB - CHEMISTRY ORDERABLES Final Result [address] [address], [place] [phone] * MAGNESIUM BLOOD (01/04/2025 5:37 AM CONTRACT LEAD) Only the most recent of2 resultswithin the time period is included. Magnesium 1.8 1.6 - 2.6 mg/dL 01/04/2025 7:37 AM [facility] Blood BLOOD SPECIMEN / Unknown Lab Venipuncture / Unknown 01/04/2025 5:37 AM CONTRACT LEAD 01/04/2025 6:53 AM CONTRACT LEAD Result [facility] Ashlee Coy MD LAB - CHEMISTRY ORDERABLES Final Result [facility] [address] [place] [address], [place] [phone] * LARYNGEAL MASK AIRWAY (01/03/2025 1:24 PM CONTRACT LEAD) Narrative Poncho Abdul II, MD - 01/03/2025 1:24 PM CONTRACT LEAD Poncho Abdul II, MD 01/04/2025 8:56 AM [...] Darius Thayer CAA, Performed the procedure Result [facility] Poncho Abdul II, MD GENERAL ANESTHESIA ORDERABL ES Edited Result - Final * (ABNORMAL) VITAMIN D 25-HYDROXY (01/03/2025 6:06 AM CONTRACT LEAD) Vitamin D, 25 Hydroxy 25.4(L) 30.0 - 80.0 ng/mL 01/03/2025 6:48 AM CONTRACT LEAD [facility] Comment: The recommendations for 25-Hydroxy Vitamin [...] Lab Venipuncture / Unknown 01/03/2025 6:06 AM CONTRACT LEAD 01/03/2025 6:11 AM CONTRACT LEAD Result [facility] Jeniffer Goldstein [facility] - CHEMISTRY ORDERABL ES Final Result Performing Organization Address City/[facility]/ZIP Co de Phone Number [address] [address], [place] [phone] * TROPONIN-I HIGH SENSITIVE (01/03/2025 3:35 AM CONTRACT LEAD) Troponin I High Sensitive 9 <=14 ng/L 01/03/2025 4:12 AM CONTRACT LEAD [facility] Blood BLOOD SPECIMEN / Unknown Venipuncture / Unknown 01/03/2025 3:35 AM CONTRACT LEAD 01/03/2025 3:43 AM CONTRACT LEAD Jeniffer Goldstein [facility] - CHEMISTRY ORDERABL ES Final Result Performing Organization Address [facility] Co de Phone Number [address] [address], [place] [phone] * NT-PRO BNP (01/03/2025 3:35 AM CONTRACT LEAD) NT-proBNP 145.0 <900.0 pg/mL 01/03/2025 4:12 AM CONTRACT LEAD [facility] Blood BLOOD SPECIMEN / Unknown Venipuncture / Unknown 01/03/2025 3:35 AM CONTRACT LEAD 01/03/2025 3:43 AM CONTRACT LEAD Narrative [facility] - 01/03/2025 4:12 AM CONTRACT LEAD NT-pro-BNP values below 300 pg/mL, for individuals 18 or above, have a 99% negative predictive value for excluding acute congestive heart failure (CHF). In patients with eGFR less than 60 mL/min/1.73 m2, caution should be used when interpreting NT-pro-BNP results. Results should be assessed in conjunction with the patient s medical history, clinical examination, and other findings. NT-pro-BNP is measured on the RobArt analyzer using chemiluminescent microparticle immunoassay (CMIA) technology. Jeniffer Goldstein MARRIAGE COUNSELOR [facility] - CHEMISTRY ORDERABL ES Final Result Performing Organization Address City/[facility]/ZIP Co de Phone Number [address] [address], [place] [phone] * (ABNORMAL) HEMOGLOBIN A1C (01/03/2025 3:35 AM CONTRACT LEAD) [facility] [address] Hemoglobin A1c 5.8(H) <=5.6 % 01/03/2025 12:32 PM [facility] Estimated Average Glucose 120 mg/dL 01/03/2025 12:32 PM [facility] Comment: HbA1c Interpretation: Normal : < 5.7% Pre-diabetes: 5.7-6.4% Diabetes: Equal to or greater than 6.5% Test results diagnostic of diabetes should be repeated for confirmation. Treatment target values recommended by ADA and other clinical organizations should be used to evaluate metabolic control in patients. Reference: [place] [employer], Standards of Care in Diabetes -2020 In patients 70 years and older consider HbA1c target range of 7.0-7.5% (Reference: Milton Mcrae et al. JAMDA. 2012) The Sebia assay for the measurement of HbA1c is a National Glycohemoglobin Standardization Program (NGSP) certified method. Blood BLOOD SPECIMEN / Unknown Venipuncture / Unknown 01/03/2025 3:35 AM CONTRACT LEAD 01/03/2025 3:43 AM CONTRACT LEAD Jeniffer Goldstein APRN-HEALTH AND WELLNESS [employer]ACH LAB - CHEMISTRY ORDERABL ES Final Result [facility] [address] [place] [address], [place] [phone] * (ABNORMAL) CBC W/O DIFFERENTIAL (01/03/2025 3:35 AM CONTRACT LEAD) [facility] [address] WBC 8.3 4.0 - 10.7 x10E9/L 01/03/2025 3:48 AM [facility] RBC Count 3.97 3.90 - 5.20 x10E12/L 01/03/2025 3:48 AM [facility] Hemoglobin 11.9 11.9 - 15.8 g/dL 01/03/2025 3:48 AM [facility] Hematocrit 34.4(L) 34.8 - 46.1 % 01/03/2025 3:48 AM [facility] MCV 86.6 80.0 - 98.0 fL 01/03/2025 3:48 AM [facility] MCH 30.0 26.7 - 33.6 pg 01/03/2025 3:48 AM [facility] MCHC 34.6 31.7 - 36.3 g/dL 01/03/2025 3:48 AM [facility] RDW-CV 13.0 11.3 - 14.8 % 01/03/2025 3:48 AM [facility] Platelet Count 187 150 - 420 x10E9/L 01/03/2025 3:48 AM [facility] MPV 10.4 7.8 - 11.4 fL 01/03/2025 3:48 AM [facility] Blood BLOOD SPECIMEN / Unknown Venipuncture / Unknown 01/03/2025 3:35 AM CONTRACT LEAD 01/03/2025 3:43 AM CONTRACT LEAD Jeniffer BELCHER LAB - HEMATOLOGY ORDERAB LES Final Result [address] [address], [place] [phone] * LACTIC ACID BLOOD (01/03/2025 3:35 AM CONTRACT LEAD) Lactic Acid-Stat 1.5 <=2.0 mmol/L 01/03/2025 4:05 AM [facility] Blood BLOOD SPECIMEN / Unknown Venipuncture / Unknown 01/03/2025 3:35 AM CONTRACT LEAD 01/03/2025 3:43 AM CONTRACT LEAD Jeniffer BELCHER LAB - CHEMISTRY ORDERABL ES Final Result [address] [address], [place] [phone] * BLOOD TYPE VERIFICATION (01/03/2025 3:34 AM CONTRACT LEAD) ABO Rh O POS 01/03/2025 4:1 5 AM [facility] Blood Bank BLOOD SPECIMEN / Unknown Venipuncture / Unknown 01/03/2025 3:34 AM CONTRACT LEAD 01/03/2025 3:41 AM CONTRACT LEAD Jose Posada MD LAB - BLOOD BANK ORDERABLES Lisa l Result Performing Organization Address [facility]/ZIP Co de Phone Number [facility] [address] [place] [address], [place] [phone] * PT-INR (01/03/2025 3:30 AM CONTRACT LEAD) Pathologist [facility] PT 13.2 12.1 - 14.8 Seconds 01/03/2025 4:19 AM CONTRACT LEAD [facility] INR 1.0 See Comment 01/03/2025 4:19 AM CONTRACT LEAD [facility] Comment:The suggested therap eutic range for standard coumadin (warfarin) therapy is an INR of 2.0-3.0. For high-risk patients (Mechanical Mitral Valve Prosthesis, etc.), the suggested prophylactic therapeutic range is an INR of 2.5-3.5. Blood BLOOD SPECIMEN / Unknown Venipuncture / Unknown 01/03/2025 3:30 AM CONTRACT LEAD 01/03/2025 3:51 AM CONTRACT LEAD Jeniffer Goldstein APRN-HEALTH AND WELLNESS COACH LAB - COAGULATION ORDERA BLES Final Result Performing Organization Address [facility]/ZIP Co de Phone Number [facility] [address] [place] [address], [place] [phone] * EKG 12-LEAD (01/03/2025 3:22 AM CONTRACT LEAD) Ventricular Rate 88 BPM [facility] MUSE Atrial Rate 88 BPM [facility] P-R Interval 174 ms [facility] QRS Duration ms 100 ms [facility] Q-T Interval ms 408 ms [facility] QTC Calculation (Bezet) 493 ms SL MUSE Calculated P Bath 51 degrees SL MUSE Calculated R Bath -3 degrees SL MUSE Calculated T Bath 51 degrees [facility] Interpretation EKG NORMAL SINUS RHYTHM PROLONGED QT ABNORMAL ECG NO PREVIOUS ECGS AVAILABLE Confirmed by JAYLENE SOTOMAYOR DO ([id number]) on 01/07/2025 9:22:23 PM [facility] M[facility] 01/03/2025 3:22 AM CONTRACT LEAD 01/07/2025 9:22 PM CONTRACT LEAD Jeniffer Goldstein MARRIAGE COUNSELOR MINISTER-HEALTH AND WELLNESS COACH ECG ORDERABLES Edited R esult - Final [facility] * CT CERVICAL SPINE WO CONTRAST (01/02/2025 9:11 PM CONTRACT LEAD) Anatomical Region Laterality Modality Spine Computed Tomogra phy 01/02/2025 9:33 PM CONTRACT LEAD Impressions 01/02/2025 10:27 PM CONTRACT LEAD IMPRESSION: 1.No acute intracranial hemorrhage, midline shift, or significant mass effect. 2.No evidence of acute fracture in the cervical spine. > Dictated by Pola Bates MD, (residential sales associate). > Dictated by Pola Bates MD 01/02/2025 9:33 PM > Dictated by Numerical Control Tool Programmer I, Ally Cash MD have personally reviewed and interpreted this examination/study. > Interpreting Provider: Ally Cash MD on 01/02/2025 10:27 PM Narrative 01/02/2025 10:27 PM CONTRACT LEAD PROCEDURE: CT HEAD WO CONTRAST, CT CERVICAL SPINE WO CONTRAST, DATE/TIME OF EXAM: 01/02/2025 9:12 PM, LOCATION [facility] INDICATION: T14.90XA: Trauma EXAMINATION: 1.Computed tomography (CT) of the head without contrast 2.CT of the cervical spine without contrast ADDITIONAL CLINICAL INFORMATION: Ordering Provider Reason For Exam: trauma (accession [id number]), frx (accession [id number]) Technologist Note: Additional: TECHNIQUE: CT of the [...] CONTRAST,DATE/TIME OF EXAM: 01/02/2025 9:12 PM, LOCATION [facility] INDICATION: T14.90XA: Trauma EXAMINATION: 1.Computed tomography (CT) of the head without contrast 2.CT of the cervical spine without contrast ADDITIONAL CLINICAL INFORMATION: Ordering Provider Reason For Exam: trauma (accession [id number]), frx (accession [id number]) Technologist Note: Additional: TECHNIQUE: CT of the [...] spine. > Dictated by Pola Bates MD, (residential sales associate). > Dictated by Pola Bates MD 01/02/2025 9:33 PM > Dictated by Numerical Control Tool Programmer I, Ally Cash MD have personally reviewed and interpreted this examination/study. > Interpreting Provider: Ally Cash MD on 01/02/2025 10:27 PM Jose Posada MD CT ORDERABLES Final Result * CT HEAD WO CONTRAST (01/02/2025 9:11 PM CONTRACT LEAD) Anatomical Region Laterality Modality Head Computed Tomogra phy 01/02/2025 9:33 PM CONTRACT LEAD Impressions 01/02/2025 10:27 PM CONTRACT LEAD IMPRESSION: 1.No acute intracranial hemorrhage, midline shift, or significant mass effect. 2.No evidence of acute fracture in the cervical spine. > Dictated by Pola Bates MD, (residential sales associate). > Dictated by Pola Bates MD 01/02/2025 9:33 PM > Dictated by Numerical Control Tool Programmer I, Ally Cash MD have personally reviewed and interpreted this examination/study. > Interpreting Provider: Ally Cash MD on 01/02/2025 10:27 PM Narrative 01/02/2025 10:27 PM CONTRACT LEAD PROCEDURE: CT HEAD WO CONTRAST, CT CERVICAL SPINE WO CONTRAST, DATE/TIME OF EXAM: 01/02/2025 9:12 PM, LOCATION [facility] INDICATION: T14.90XA: Trauma EXAMINATION: 1.Computed tomography (CT) of the head without contrast 2.CT of the cervical spine without contrast ADDITIONAL CLINICAL INFORMATION: Ordering Provider Reason For Exam: trauma (accession [id number]), frx (accession [id number]) Technologist Note: Additional: TECHNIQUE: CT of the [...] CONTRAST,DATE/TIME OF EXAM: 01/02/2025 9:12 PM, LOCATION [facility] INDICATION: T14.90XA: Trauma EXAMINATION: 1.Computed tomography (CT) of the head without contrast 2.CT of the cervical spine without contrast ADDITIONAL CLINICAL INFORMATION: Ordering Provider Reason For Exam: trauma (accession [id number]), frx (accession [id number]) Technologist Note: Additional: TECHNIQUE: CT of the [...] spine. > Dictated by Pola Bates MD, (residential sales associate). > Dictated by Pola Bates MD 01/02/2025 9:33 PM > Dictated by Numerical Control Tool Programmer I, Ally Cash MD have personally reviewed and interpreted this examination/study. > Interpreting Provider: Ally Cash MD on 01/02/2025 10:27 PM Jose Posada MD CT ORDERABLES Final Result * XR Ankle Right 3Vw or More (01/02/2025 7:25 PM CONTRACT LEAD) Anatomical Region Laterality Modality Lower Extremity Digital Radiogra phy 01/02/2025 7:35 PM CONTRACT LEAD Impressions 01/03/2025 1:30 AM CONTRACT LEAD IMPRESSION: No acute fracture or dislocation identified. Report dictated by Oliver Fairbanks MD, (residential sales associate). > Dictated by Oliver Fairbanks MD 01/02/2025 7:35 PM > Dictated by Numerical Control Tool Programmer I, Edgar Orta MD have personally reviewed and interpreted this examination/study. > Interpreting Provider: Edgar Orta MD on 01/03/2025 1:30 AM Narrative 01/03/2025 1:30 AM CONTRACT LEAD PROCEDURE: XR ANKLE RIGHT 3VW OR MORE, DATE/TIME OF EXAM: 01/02/2025 7:25 PM, LOCATION [facility] INDICATION: T14.90XA: Trauma ADDITIONAL CLINICAL INFORMATION: Ordering [...] MORE, DATE/TIME OF EXAM: 57:25 PM, LOCATION [facility] INDICATION: T14.90XA: Trauma ADDITIONAL CLINICAL INFORMATION: Ordering Provider Reason For Exam: frx Technologist Note: Additional: COMPARISON: None. FINDINGS: The osseous structures are intact and well aligned without acutefracture or dislocation. The ankle mortise is intact. No soft tissue swelling is present. Large calcaneal plantar osteophyte. There are vascular calcifications. IMPRESSION: No acute fracture or dislocation identified. Report dictated by Oliver Fairbanks MD, (residential sales associate). > Dictated by Oliver Fairbanks MD 01/02/2025 7:35 PM > Dictated by Numerical Control Tool Programmer I, Edgar Orta MD have personally reviewed and interpreted this examination/study. > Interpreting Provider: Edgar Orta MD on 01/03/2025 1:30 AM Jose Posada MD DIAGNOSTIC IMAGING ORDERABLES Fi nal Result * XR Ankle Left 3Vw or More (01/02/2025 7:25 PM CONTRACT LEAD) Anatomical Region Laterality Modality Lower Extremity Digital Radiogra phy 01/02/2025 7:34 PM CONTRACT LEAD Impressions 01/03/2025 1:30 AM CONTRACT LEAD IMPRESSION: No acute fracture or dislocation identified. Report dictated by Oliver Fairbanks MD, (residential sales associate). > Dictated by Oliver Fairbanks MD 01/02/2025 7:34 PM > Dictated by Numerical Control Tool Programmer Edgar Way MD have personally reviewed and interpreted this examination/study. > Interpreting Provider: Edgar Orta MD on 01/03/2025 1:30 AM Narrative 01/03/2025 1:30 AM CONTRACT LEAD PROCEDURE: XR ANKLE LEFT 3VW OR MORE, DATE/TIME OF EXAM: 01/02/2025 7:25 PM, LOCATION [facility] INDICATION: T14.90XA: Trauma ADDITIONAL CLINICAL INFORMATION: Ordering [...] MORE, DATE/TIME OF EXAM: 57:25 PM, LOCATION [facility] INDICATION: T14.90XA: Trauma ADDITIONAL CLINICAL INFORMATION: Ordering [...] identified. Report dictated by Oliver Fairbanks MD, (residential sales associate). > Dictated by Oliver Fairbanks MD 01/02/2025 7:34 PM > Dictated by Numerical Control Tool Programmer Edgar Way MD have personally reviewed and interpreted this examination/study. > Interpreting Provider: Edgar Orta MD on 01/03/2025 1:30 AM Jose Posada MD DIAGNOSTIC IMAGING ORDERABLES Fi nal Result * XR Humerus Left 2Vw or More (01/02/2025 7:25 PM CONTRACT LEAD) Anatomical Region Laterality Modality Upper Extremity Digital Radiogra phy 01/02/2025 7:36 PM CONTRACT LEAD Impressions 01/03/2025 1:31 AM CONTRACT LEAD IMPRESSION: Mildly displaced fracture of the left ulnar styloid and likely distal radius. Report dictated by Oliver Fairbanks MD, (residential sales associate). > Dictated by Oliver Fairbanks MD 01/02/2025 7:36 PM > Dictated by Numerical Control Tool Programmer I, Edgar Orta MD have personally reviewed and interpreted this examination/study. > Interpreting Provider: Edgar Orta MD on 01/03/2025 1:31 AM Narrative 01/03/2025 1:31 AM CONTRACT LEAD PROCEDURE: XR SHOULDER LEFT 2VW OR MORE, XR HUMERUS LEFT 2VW OR MORE, XR ELBOW LEFT 3VW OR MORE, XR HAND LEFT 3VW OR MORE, XR WRIST LEFT 3VW OR MORE, XR FOREARM LEFT 2VW OR MORE, DATE/TIME OF EXAM: 01/02/2025 7:24 PM, LOCATION [facility] INDICATION: T14.90XA: Trauma ADDITIONAL CLINICAL INFORMATION: Ordering [...] MORE, DATE/TIME OF EXAM: 01/02/2025 7:24PM, LOCATION [facility] INDICATION: T14.90XA: Trauma ADDITIONAL CLINICAL INFORMATION: Ordering [...] radius. Report dictated by Oliver Fairbanks MD, (residential sales associate). > Dictated by Oliver Fairbanks MD 01/02/2025 7:36 PM > Dictated by Numerical Control Tool Programmer I, Edgar Orta MD have personally reviewed and interpreted this examination/study. > Interpreting Provider: Edgar Orta MD on 01/03/2025 1:31 AM us Jose Posada MD DIAGNOSTIC IMAGING ORDERABLES Fi nal Result * XR Elbow Left 3Vw or More (01/02/2025 7:24 PM CONTRACT LEAD) Anatomical Region Laterality Modality Upper Extremity Digital Radiogra phy 01/02/2025 7:36 PM CONTRACT LEAD Impressions 01/03/2025 1:31 AM CONTRACT LEAD IMPRESSION: Mildly displaced fracture of the left ulnar styloid and likely distal radius. Report dictated by Oliver Fairbanks MD, (residential sales associate). > Dictated by Oliver Fairbanks MD 01/02/2025 7:36 PM > Dictated by Numerical Control Tool Programmer I, Edgar Orta MD have personally reviewed and interpreted this examination/study. > Interpreting Provider: Edgar Orta MD on 01/03/2025 1:31 AM Narrative 01/03/2025 1:31 AM CONTRACT LEAD PROCEDURE: XR SHOULDER LEFT 2VW OR MORE, XR HUMERUS LEFT 2VW OR MORE, XR ELBOW LEFT 3VW OR MORE, XR HAND LEFT 3VW OR MORE, XR WRIST LEFT 3VW OR MORE, XR FOREARM LEFT 2VW OR MORE, DATE/TIME OF EXAM: 01/02/2025 7:24 PM, LOCATION [facility] INDICATION: T14.90XA: Trauma ADDITIONAL CLINICAL INFORMATION: Ordering [...] MORE, DATE/TIME OF EXAM: 01/02/2025 7:24PM, LOCATION [facility] INDICATION: T14.90XA: Trauma ADDITIONAL CLINICAL INFORMATION: Ordering [...] radius. Report dictated by Oliver Fairbanks MD, (residential sales associate). > Dictated by Oliver Fairbanks MD 01/02/2025 7:36 PM > Dictated by Numerical Control Tool Programmer I, Edgar Orta MD have personally reviewed and interpreted this examination/study. > Interpreting Provider: Edgar Orta MD on 01/03/2025 1:31 AM us Jose Posada MD DIAGNOSTIC IMAGING ORDERABLES Fi nal Result * XR Shoulder Left 2Vw or More (01/02/2025 7:24 PM CONTRACT LEAD) Anatomical Region Laterality Modality Upper Extremity Digital Radiogra phy 01/02/2025 7:36 PM CONTRACT LEAD Impressions 01/03/2025 1:31 AM CONTRACT LEAD IMPRESSION: Mildly displaced fracture of the left ulnar styloid and likely distal radius. Report dictated by Oliver Fairbanks MD, (residential sales associate). > Dictated by Oliver Fairbanks MD 01/02/2025 7:36 PM > Dictated by Numerical Control Tool Programmer I, Edgar Orta MD have personally reviewed and interpreted this examination/study. > Interpreting Provider: Edgar Orta MD on 01/03/2025 1:31 AM Narrative 01/03/2025 1:31 AM CONTRACT LEAD PROCEDURE: XR SHOULDER LEFT 2VW OR MORE, XR HUMERUS LEFT 2VW OR MORE, XR ELBOW LEFT 3VW OR MORE, XR HAND LEFT 3VW OR MORE, XR WRIST LEFT 3VW OR MORE, XR FOREARM LEFT 2VW OR MORE, DATE/TIME OF EXAM: 01/02/2025 7:24 PM, LOCATION [facility] INDICATION: T14.90XA: Trauma ADDITIONAL CLINICAL INFORMATION: Ordering [...] MORE, DATE/TIME OF EXAM: 01/02/2025 7:24PM, LOCATION [facility] INDICATION: T14.90XA: Trauma ADDITIONAL CLINICAL INFORMATION: Ordering [...] radius. Report dictated by Oliver Fairbanks MD, (residential sales associate). > Dictated by Oliver Fairbanks MD 01/02/2025 7:36 PM > Dictated by Numerical Control Tool Programmer I, Edgar Orta MD have personally reviewed and interpreted this examination/study. > Interpreting Provider: Edgar Orta MD on 01/03/2025 1:31 AM us Jose Posada MD DIAGNOSTIC IMAGING ORDERABLES Fi nal Result * XR Hand Left 3Vw or More (01/02/2025 7:24 PM CONTRACT LEAD) Anatomical Region Laterality Modality Wrist / Hand Digital Radiogra phy 01/02/2025 7:36 PM CONTRACT LEAD Impressions 01/03/2025 1:31 AM CONTRACT LEAD IMPRESSION: Mildly displaced fracture of the left ulnar styloid and likely distal radius. Report dictated by Oliver Fairbanks MD, (residential sales associate). > Dictated by Oliver Fairbanks MD 01/02/2025 7:36 PM > Dictated by Numerical Control Tool Programmer I, Edgar Orta MD have personally reviewed and interpreted this examination/study. > Interpreting Provider: Edgar Orta MD on 01/03/2025 1:31 AM Narrative 01/03/2025 1:31 AM CONTRACT LEAD PROCEDURE: XR SHOULDER LEFT 2VW OR MORE, XR HUMERUS LEFT 2VW OR MORE, XR ELBOW LEFT 3VW OR MORE, XR HAND LEFT 3VW OR MORE, XR WRIST LEFT 3VW OR MORE, XR FOREARM LEFT 2VW OR MORE, DATE/TIME OF EXAM: 01/02/2025 7:24 PM, LOCATION [facility] INDICATION: T14.90XA: Trauma ADDITIONAL CLINICAL INFORMATION: Ordering [...] MORE, DATE/TIME OF EXAM: 01/02/2025 7:24PM, LOCATION [facility] INDICATION: T14.90XA: Trauma ADDITIONAL CLINICAL INFORMATION: Ordering [...] radius. Report dictated by Oliver Fairbanks MD, (residential sales associate). > Dictated by Oliver Fairbanks MD 01/02/2025 7:36 PM > Dictated by Numerical Control Tool Programmer I, Edgar Orta MD have personally reviewed and interpreted this examination/study. > Interpreting Provider: Edgar Orta MD on 01/03/2025 1:31 AM Jose Posada MD DIAGNOSTIC IMAGING ORDERABLES Fi nal Result * XR Wrist Left 3Vw or More (01/02/2025 7:24 PM CONTRACT LEAD) Anatomical Region Laterality Modality Wrist / Hand Digital Radiogra phy 01/02/2025 7:36 PM CONTRACT LEAD Impressions 01/03/2025 1:31 AM CONTRACT LEAD IMPRESSION: Mildly displaced fracture of the left ulnar styloid and likely distal radius. Report dictated by Oliver Fairbanks MD, (residential sales associate). > Dictated by Oliver Fairbanks MD 01/02/2025 7:36 PM > Dictated by Numerical Control Tool Programmer I, Edgar Orta MD have personally reviewed and interpreted this examination/study. > Interpreting Provider: Edgar Orta MD on 01/03/2025 1:31 AM Narrative 01/03/2025 1:31 AM CONTRACT LEAD PROCEDURE: XR SHOULDER LEFT 2VW OR MORE, XR HUMERUS LEFT 2VW OR MORE, XR ELBOW LEFT 3VW OR MORE, XR HAND LEFT 3VW OR MORE, XR WRIST LEFT 3VW OR MORE, XR FOREARM LEFT 2VW OR MORE, DATE/TIME OF EXAM: 01/02/2025 7:24 PM, LOCATION [facility] INDICATION: T14.90XA: Trauma ADDITIONAL CLINICAL INFORMATION: Ordering [...] MORE, DATE/TIME OF EXAM: 01/02/2025 7:24PM, LOCATION [facility] INDICATION: T14.90XA: Trauma ADDITIONAL CLINICAL INFORMATION: Ordering [...] radius. Report dictated by Oliver Fairbanks MD, (residential sales associate). > Dictated by Oliver Fairbanks MD 01/02/2025 7:36 PM > Dictated by Numerical Control Tool Programmer I, Edgar Orta MD have personally reviewed and interpreted this examination/study. > Interpreting Provider: Edgar Orta MD on 01/03/2025 1:31 AM us Jose Posada MD DIAGNOSTIC IMAGING ORDERABLES Fi nal Result * XR Forearm Left 2Vw or More (01/02/2025 7:22 PM CONTRACT LEAD) Anatomical Region Laterality Modality Upper Extremity Digital Radiogra phy 01/02/2025 7:36 PM CONTRACT LEAD Impressions 01/03/2025 1:31 AM CONTRACT LEAD IMPRESSION: Mildly displaced fracture of the left ulnar styloid and likely distal radius. Report dictated by Oliver Fairbanks MD, (residential sales associate). > Dictated by Oliver Fairbanks MD 01/02/2025 7:36 PM > Dictated by Numerical Control Tool Programmer I, Edgar Orta MD have personally reviewed and interpreted this examination/study. > Interpreting Provider: Edgar Orta MD on 01/03/2025 1:31 AM Narrative 01/03/2025 1:31 AM CONTRACT LEAD PROCEDURE: XR SHOULDER LEFT 2VW OR MORE, XR HUMERUS LEFT 2VW OR MORE, XR ELBOW LEFT 3VW OR MORE, XR HAND LEFT 3VW OR MORE, XR WRIST LEFT 3VW OR MORE, XR FOREARM LEFT 2VW OR MORE, DATE/TIME OF EXAM: 01/02/2025 7:24 PM, LOCATION [facility] INDICATION: T14.90XA: Trauma ADDITIONAL CLINICAL INFORMATION: Ordering [...] MORE, DATE/TIME OF EXAM: 01/02/2025 7:24PM, LOCATION [facility] INDICATION: T14.90XA: Trauma ADDITIONAL CLINICAL INFORMATION: Ordering [...] radius. Report dictated by Oliver Fairbanks MD, (residential sales associate). > Dictated by Oliver Fairbanks MD 01/02/2025 7:36 PM > Dictated by Numerical Control Tool Programmer I, Edgar Orta MD have personally reviewed and interpreted this examination/study. > Interpreting Provider: Edgar Orta MD on 01/03/2025 1:31 AM Jose Posada MD DIAGNOSTIC IMAGING ORDERABLES Fi nal Result * TYPE + SCREEN PANEL (01/02/2025 6:32 PM CONTRACT LEAD) Antibody Screen NEG 7:31 PM CONTRACT LEAD [facility] ABO Rh O POS 01/02/2025 7:31 PM [facility] Blood Bank BLOOD SPECIMEN / Unknown Venipuncture / Unknown 01/02/2025 6:32 PM CONTRACT LEAD 01/02/2025 6:45 PM CONTRACT LEAD us Jose Posada MD LAB - BLOOD BANK ORDERABLES Lisa l Result [facility] [address] [place] [address], [place] [phone] * (ABNORMAL) COMPREHENSIVE METABOLIC PANEL (01/02/2025 6:32 PM CONTRACT LEAD) BUN 12 7 - 26 mg/dL 01/02/2025 7:06 PM [facility] Creatinine 0.50(L) 0.56 - 0.96 mg/dL 01/02/2025 7:06 PM [facility] Sodium 141 136 - 145 mmol/L 01/02/2025 7:06 PM [facility] Potassium 4.1 3.5 - 4.5 mmol/L 01/02/2025 7:06 PM [facility] Chloride 109(H) 98 - 107 mmol/L 01/02/2025 7:06 PM [facility] CO2 20(L) 22 - 29 mmol/L 01/02/2025 7:06 PM [facility] Glucose 145(H) 70 - 99 mg/dL 01/02/2025 7:06 PM [facility] Calcium 9.0 8.4 - 10.2 mg/dL 01/02/2025 7:06 PM [facility] Protein Total 7.1 6.0 - 8.3 g/dL 01/02/2025 7:06 PM [facility] Albumin 4.0 3.4 - 5.0 g/dL 01/02/2025 7:06 PM [facility] Bilirubin Total 1.9(H) 0.2 - 1.2 mg/dL 01/02/2025 7:06 PM [facility] Alkaline Phosphatase 138 40 - 150 U/L 01/02/2025 7:06 PM [facility] ALT 15 5 - 55 U/L 01/02/2025 7:06 PM [facility] AST 23 5 - 34 U/L 01/02/2025 7:06 PM [facility] Anion Gap 12 6 - 16 01/02/2025 7:06 PM [facility] BUN/Creatinine Ratio 24(H) 7 - 23 01/02/2025 7:06 PM [facility] Osmolality Calculated 294 275 - 295 mOsm/kg 01/02/2025 7:06 PM [facility] Albumin/Globulin Ratio 1.3 1.1 - 2.3 01/02/2025 7:06 PM [facility] eGFR by CKD-EPI >90 >=90 mL/min/1.7 3 m2 01/02/2025 7:06 PM [facility] Comment:Estimated Glomerular Filtration Rate (eGFR) calculated using the CKD-EPI Creatinine Equation (2020), per the National Kidney Foundation and [place] [employer]ph[employer] recommendations. Blood BLOOD SPECIMEN / Unknown Venipuncture / Unknown 01/02/2025 6:32 PM CONTRACT LEAD 01/02/2025 6:39 PM [facility] Jose Posada MD LAB - CHEMISTRY ORDERABLES Final Result [facility] [address] [place] [address], [place] [phone] from Last [address] [facility] SELF PAY NO INSURANCE Member Subscriber Plan / Payer (Ef fective for All Dates) Name:Marina Coronado Member ID:Not on file Relation to Subscriber:Not on file Name:MARINA CORONADO Subscriber ID:Not on file (Home) Address: [address] [place] [address] Payer ID:Not on file Group ID:Not on file Type:Self Pay Address: [place], [place] [facility] Advance Directives * Full Code (Latest Code Status on File) Date Activated Date Inactivated Comments 01/03/2025 2:33 AM 01/05/2025 2:48 PM Care Teams Hog Raiser Relationship Specialty Start Date End Date Khanh Altamirano MD [address] [place] [id number] PCP - General Family Medicine 11/13/22
--- OUTSIDE RECORDS SUMMARY | 2025-01-10 16:07 | XMS_ITS | Clinical Summary ---
Author Organization [facility] Care Team Providers Care Aircraft Sheet Metal Mechanic Name Role Phone Unavailable Primary Care Provider Unavailabl e Encounters Date Type Department Care Team Description 12/25/2024 Telephone [facility] [place] [address] Yemi Hirsch, SENIOR CONTRACTS MANAGER, SOLAR SALES ESTIMATOR from Last 3 Months Social History Tobacco [...]
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
[2025-01-10 16:28] LABS: Hemoglobin A1C 6.2 % (<5.7)
[2025-01-10 16:29] LABS: Alanine Aminotransferase 14 U/L (6-35); Albumin Level 4.7 g/dL (3.5-5.1); Alkaline Phosphatase 104 U/L (38-126); Aspartate Amino Transferase 35 U/L (14-36); Bilirubin,Total 1.4 mg/dL (0.2-1.3); Total Protein 8.1 g/dL (6.3-8.2)
[2025-01-10 16:41] LABS: Immunoglobulin G 864 mg/dL (700-1600)
== END 2025-01-10 15:24 | disposition home or self-care (01) ==
PROVIDERS: Nurse Practitioner; PCP Family Medicine; Visit Provider Nurse Practitioner Family
DX: M54.50 Low back pain, unspecified (principal); K76.0 Fatty (change of) liver, not elsewhere classified; R74.8 Abnormal levels of other serum enzymes; Z13.1 Encounter for screening for diabetes mellitus
CPT/HCPCS: 36415; 72100; 80076; 82784; 83036